=== PATIENT | female | born 1935 | race Caucasian/White ===

== ENCOUNTER 2016-11-24 09:40 | Inpatient (IN) | payer MEDICARE, BC ==
--- NOTE | 2016-11-24 10:38 | ED ---
Fall HPI - General Chief Complaint: Fall Stated Complaint: Fall Time Seen by Provider: 11/24/16 09:51 Source: patient Mode of arrival: EMS - History of Present Illness Initial Comments: 81-year-old female patient presents to emergency department today for complaints of left shoulder pain. She did express a fall last evening from standing height. Patient does take Coumadin. Patient did hit her head but denies any loss of consciousness. Patient does have a large hematoma to her posterior scalp. Patient is somewhat drowsy during exam but is oriented 3. S Patient is complaining of some lower abdominal pain and has had diarrhea for the last few days. He denies any back pain, chest pain, shortness of breath, dizziness, or weakness. She denies any urinary frequency, urgency, dysuria, hematuria, retention. Does have a history of dementia. - Related Data Home Medications Medication Instructions Recorded Confirmed Lactulose 10 gm PO DAILY PRN 03/25/16 11/24/16 Levothyroxine Sodium [Synthroid] 150 mcg PO DAILY 03/25/16 11/24/16 Polyethylene Glycol 3350 [Miralax] 17 gm PO DAILY PRN 03/25/16 11/24/16 Albuterol Sulfate [Proair Hfa] 2 puff INHALATION RT-Q6H PRN 07/11/16 11/24/16 Lisinopril [Zestril] 5 mg PO DAILY@0800 07/11/16 11/24/16 Loperamide [Imodium] 2 mg PO Q6H PRN 07/11/16 11/24/16 Potassium Chloride [Klor-Con 10] 10 meq PO DAILY@0900 07/11/16 11/24/16 SILVER sulfADIAZINE CREAM 1 applic TOPICAL HS@209907/11/16 11/24/16 [Silvadene Cream] Carvedilol [Coreg] 6.25 mg PO BID@0800,209911/24/16 11/24/16 Ferrous Sulfate [Feosol] 325 mg PO BID@0800,209911/24/16 11/24/16 Furosemide [Lasix] 20 mg PO DAILY@1200 11/24/16 11/24/16 Simvastatin [Zocor] 40 mg PO HS@209911/24/16 11/24/16 Warfarin [Coumadin] 2 mg PO HS@209911/24/16 11/24/16 Previous Rx's Medication Instructions Recorded traMADol HCL [Ultram] 50 mg PO BID PRN #60 tablet 03/28/16 Allergies Allergy/AdvReac Type Severity Reaction Status Date / Time ciprofloxacin [From Cipro] Allergy Unknown Verified 11/24/16 10:35 lisinopril Allergy Unknown Verified 11/24/16 10:35 Sulfa (Sulfonamide Allergy Unknown Verified 11/24/16 10:35 Antibiotics) Review of Systems ROS Statement: Those systems with pertinent positive or pertinent negative responses have been documented in the HPI. ROS Other: All systems not noted in ROS Statement are negative. Past Medical History Past Medical History: Atrial Fibrillation, Coronary Artery Disease (CAD), Cancer , Chest Pain / Angina, Dementia, Deep Vein Thrombosis (DVT), Memory Impairment, Pulmonary Embolus (PE), Thyroid Disorder Additional Past Medical History / Comment(s): ? TIA , SEES DR MO AND HAD ECHO RECENTLY, MEMORY GETTING WORSE PER DAUGHTER HAS DEMENTIAL. STATES HAS FALLEN 4 TIMES IN LAST MONTH.THEY HIRED COMFORT KEEPERS TO VISIT PATIENT. CELLULITIS LOWER LEGS, [facility] DOING SILVADENE DRESSING CHANGES History of Any Multi-Drug Resistant Organisms: ESBL Date of last positivie culture/infection: 03/24/16 E.coli ESBL MDRO Source:: Urine Past Surgical History: AICD, Bladder Surgery, Breast Surgery, Coronary Bypass/ CABG, Heart Catheterization, Pacemaker Additional Past Surgical History / Comment(s): LEFT BREAST MASTECTOMY AT [facility]- NO CHEMO OR RADIATION, CABG AT [facility] Type of Cardiac Device: Permanent Pacemaker, AICD Device Placement Date:: APPROX 5-6 YRS AGO Past Psychological History: Unable to Obtain Smoking Status: Never smoker Past Alcohol Use History: Occasional Additional Past Alcohol Use History / Comment(s): PER DAUGHTER HAS WINE AVAILABLE BUT IS NOT AN ALCOHOLIC Past Drug Use History: None Reported Additional Drug Use History / Comment(s): MEDS GIVEN TO PATIENT BY [facility] STAFF General Exam Limitations: no limitations General appearance: in no apparent distress, other (Drowsy) Head exam: Present: normocephalic, other (Large hematoma to the posterior scalp , purple in color). Absent: normal inspection Eye exam: Present: normal appearance, EOMI Pupils: Present: other (Pinpoint pupils, no reaction to light.) ENT exam: Present: normal exam, normal oropharynx, mucous membranes moist, TM's normal bilaterally. Absent: mucous membranes dry Neck exam: Present: normal inspection, full ROM. Absent: tenderness, lymphadenopathy Respiratory exam: Present: normal lung sounds bilaterally. Absent: respiratory distress, wheezes, rales, rhonchi, chest wall tenderness Cardiovascular Exam: Present: regular rate, normal rhythm, diastolic murmur. Absent: irregular rhythm GI/Abdominal exam: Present: soft, tenderness (Mild), normal bowel sounds. Absent: guarding, rebound, rigid, organomegaly, mass, hernia Extremities exam: Present: normal inspection, tenderness (To the left shoulder) , normal capillary refill. Absent: full ROM (Limited Range of motion to the left shoulder due to increased pain with movement), joint swelling Back exam: Present: normal inspection. Absent: tenderness, CVA tenderness (R), CVA tenderness (L), muscle spasm, paraspinal tenderness, vertebral tenderness Neurological exam: Present: oriented X3, CN II-XII intact, other (Drowsy) Psychiatric exam: Present: normal affect, normal mood Skin exam: Present: warm, dry, intact Course Vital Signs 11/24/16 11/24/16 09:46 14:41 Temperature 97.6 F 96.9 F L Pulse Rate 71 81 Respiratory 18 16 Rate Blood Pressure 129/78 148/77 O2 Sat by Pulse 97 97 Oximetry Medical Decision Making - Medical Decision Making Case discussed with Dr. Kirby. Patient will be admitted at this time for IV Lasix, repeat laboratory evaluation. - Lab Data Result diagrams: 11/24/16 10:37 11/24/16 10:37 Lab Results 11/24/16 11/24/16 11/24/16 Range/Units 10:37 10:37 10:37 WBC 4.5 (3.8-10.6) k/uL RBC 4.16 (3.80-5.40) m/uL Hgb 12.6 (11.4-16.0) gm/dL Hct 42.1 (34.0-46.0) % MCV 101.3 H (80.0-100.0) fL MCH 30.4 (25.0-35.0) pg MCHC 30.0 L (31.0-37.0) g/dL RDW 14.1 (11.5-15.5) % Plt Count 102 L (150-450) k/uL Neutrophils % 65 % Lymphocytes % 15 % Monocytes % 11 % Eosinophils % 5 % Basophils % 1 % Neutrophils # 3.0 (1.3-7.7) k/uL Lymphocytes # 0.7 L (1.0-4.8) k/uL Monocytes # 0.5 (0-1.0) k/uL Eosinophils # 0.2 (0-0.7) k/uL Basophils # 0.0 (0-0.2) k/uL Hypochromasia Moderate Macrocytosis Slight PT 34.3 H (9.0-12.0) sec INR 3.5 (<1.1) APTT 30.8 H (22.0-30.0) sec Sodium 147 H (137-145) mmol/L Potassium 3.4 L (3.5-5.1) mmol/L Chloride 104 (98-107) mmol/L Carbon Dioxide 29 (22-30) mmol/L Anion Gap 14 mmol/L BUN 41 H (7-17) mg/dL Creatinine 1.66 H (0.52-1.04) mg/dL Est GFR (MDRD) Af Amer 36 (>60 ml/min/1.73 sqM) Est GFR (MDRD) Non-Af 30 (>60 ml/min/1.73 sqM) Glucose 112 H (74-99) mg/dL Calcium 9.8 (8.4-10.2) mg/dL Total Bilirubin 2.7 H (0.2-1.3) mg/dL AST 40 H (14-36) U/L ALT 25 (9-52) U/L Alkaline Phosphatase 88 (38-126) U/L Creatine Kinase (30-135) U/L NT-Pro-B Natriuret Pep pg/mL Total Protein 6.8 (6.3-8.2) g/dL Albumin 3.8 (3.5-5.0) g/dL Amylase 46 (30-110) U/L Lipase 166 (23-300) U/L Urine Color Urine Appearance (Clear) Urine pH (5.0-8.0) Ur Specific [place] (1.001-1.035) Urine Protein (Negative) Urine Glucose (UA) (Negative) Urine Ketones (Negative) Urine Blood (Negative) Urine Nitrate (Negative) Urine Bilirubin (Negative) Urine Urobilinogen (<2.0) mg/dL Ur Leukocyte Esterase (Negative) Urine WBC (0-5) /hpf Urine Bacteria (None) /hpf Urine Mucus (None) /hpf 11/24/16 11/24/16 11/24/16 Range/Units 10:37 10:37 12:15 WBC (3.8-10.6) k/uL RBC (3.80-5.40) m/uL Hgb (11.4-16.0) gm/dL Hct (34.0-46.0) % MCV (80.0-100.0) fL MCH (25.0-35.0) pg MCHC (31.0-37.0) g/dL RDW (11.5-15.5) % Plt Count (150-450) k/uL Neutrophils % % Lymphocytes % % Monocytes % % Eosinophils % % Basophils % % Neutrophils # (1.3-7.7) k/uL Lymphocytes # (1.0-4.8) k/uL Monocytes # (0-1.0) k/uL Eosinophils # (0-0.7) k/uL Basophils # (0-0.2) k/uL Hypochromasia Macrocytosis PT (9.0-12.0) sec INR (<1.1) APTT (22.0-30.0) sec Sodium (137-145) mmol/L Potassium (3.5-5.1) mmol/L Chloride (98-107) mmol/L Carbon Dioxide (22-30) mmol/L Anion Gap mmol/L BUN (7-17) mg/dL Creatinine (0.52-1.04) mg/dL Est GFR (MDRD) Af Amer (>60 ml/min/1.73 sqM) Est GFR (MDRD) Non-Af (>60 ml/min/1.73 sqM) Glucose (74-99) mg/dL Calcium (8.4-10.2) mg/dL Total Bilirubin (0.2-1.3) mg/dL AST (14-36) U/L ALT (9-52) U/L Alkaline Phosphatase (38-126) U/L Creatine Kinase 163 H (30-135) U/L NT-Pro-B Natriuret Pep 51011 pg/mL Total Protein (6.3-8.2) g/dL Albumin (3.5-5.0) g/dL Amylase (30-110) U/L Lipase (23-300) U/L Urine Color Yellow Urine Appearance Cloudy H (Clear) Urine pH 5.5 (5.0-8.0) Ur Specific [place] 1.010 (1.001-1.035) Urine Protein 1+ H (Negative) Urine Glucose (UA) Negative (Negative) Urine Ketones Negative (Negative) Urine Blood Negative (Negative) Urine Nitrate Negative (Negative) Urine Bilirubin Negative (Negative) Urine Urobilinogen 4.0 (<2.0) mg/dL Ur Leukocyte Esterase Small H (Negative) Urine WBC 4 (0-5) /hpf Urine Bacteria Moderate H (None) /hpf Urine Mucus Rare H (None) /hpf - Radiology Data Radiology results: report reviewed CT of the brain and C-spine shows moderate-sized left posterior scalp contusion. No underlying skull fracture or acute intracranial abnormalities seen. Stable mild atrophy and changes of chronic small vessel ischemic disease. No acute fracture of cervical spine. Degenerative grade 1 anterolisthesis at C5 to C6 and C7 to T1 with moderate multilevel spondylitic changes and a levoconvex scoliosis. Also shows moderate right pleural effusion of unknown etiology, clinically correlate. As dictated by Dr. Guallpa. X-ray of the left shoulder reveals no acute osseous lesion. Hypertrophic change , left before meals joint. As dictated by Dr. Chapman. X-ray of the lumbar spine reveals no acute osseous lesion. But does show borderline grade 2 spondylolisthesis of L4 on L5. Degenerative change also noted. As dictated by Dr. Chapman. AP view x-ray of the pelvis reveals no acute osseous lesion. But does show degenerative change. As dictated by Dr. Chapman. Disposition Clinical Impression: Fall, Scalp hematoma, CHF (congestive heart failure), Pleural effusion Disposition: ADMITTED IP TO THIS HOSP Condition: Fair
[2016-11-24 10:52] LABS: Basophils % (A) 1 %; CH 30.8; CHCM 30.6; Eosinophils # (A) 0.2 k/uL (0-0.7); Eosinophils % (A) 5 %; HCT 42.1 % (34.0-46.0); HDW 2.62; HGB 12.6 gm/dL (11.4-16.0); Hypochromasia Moderate; Luc % (Auto) 4; Lymphocytes # (A) 0.7 k/uL (1.0-4.8); Lymphocytes % (A) 15 %; MCH 30.4 pg (25.0-35.0); MCV 101.3 fL (80.0-100.0); Macrocytosis Slight; Mean Platelet Volume 8.4; Monocytes # (A) 0.5 k/uL (0-1.0); Monocytes % (A) 11 %; Neutrophils % (A) 65 %; RBC 4.16 m/uL (3.80-5.40); RDW 14.1 % (11.5-15.5); WBC 4.5 k/uL (3.8-10.6); WBC (Perox) 4.61
[2016-11-24 10:58] LABS: Calcium 9.8 mg/dL (8.4-10.2); Potassium 3.4 mmol/L (3.5-5.1); Total Bilirubin 2.7 mg/dL (0.2-1.3); Total Protein 6.8 g/dL (6.3-8.2)
[2016-11-24 11:04] LABS: INR 3.5 (<1.1); Partial Thromboplastin Time 30.8 sec (22.0-30.0); Prothrombin Time 34.3 sec (9.0-12.0)
--- NOTE | 2016-11-24 11:35 | CT ---
EXAMINATION TYPE: CT brain [place] con DATE OF EXAM: 11/24/2016 11:18 AM COMPARISON: NONE HISTORY: 81-year-old female with fall, hit back of head CT DLP: 1696 mGycm Automated exposure control for dose reduction was used. Technique: Examination of the head was done in axial plane without intravenous contrast. Coronal and sagittal reconstructions performed. CT of the cervical spine was obtained in axial plane without intravenous injection of contrast mater ial. Coronal and sagittal reformatted images were obtained from the axial views for evaluation of f ractures, spinal alignment and canal. FINDINGS: Head: There is no evidence of acute intracranial hemorrhage, acute ischemic changes, mass, mass-effect, or extra-axial fluid collection. There is no effacement of cerebral sulci or basal subarachnoid cister ns. There is no hydrocephalus. There is no midline shift. Carrillo-white matter distinction is preserv ed. Mild generalized supratentorial volume loss. Mild patchy periventricular and deep white matter hypod ensity suggesting chronic small vessel ischemic disease. There is a moderate sized posterior scalp contusion without underlying calvarial fracture. Normal variant of hyperostosis frontalis interna. Paranasal sinuses and mastoid air cells well pneuma tized. Orbits and globes are intact. Cervical spine: There is a levoconvex curvature of the cervical spine. Advanced disc/endplate degenerative change C4- C5 and C6-C7. There is degenerative grade 1 anterolisthesis at C5-C6 and C7-T1. Bulging disks and ligamentum flavum thickening and disc osteophyte complex formation throughout. No acute fracture of the cervical spine. Changes result in moderate right neuroforaminal stenosis at C4-C5 and mild on the left at C6-C7. Colón ges result in very minimal mild narrowing of the spinal canal. Retropharyngeal course of the carotid artery. There is a moderate right pleural effusion of unknown etiology and should be correlated clinically. Sagittal and coronal reformatted images confirm above findings. COMBINED IMPRESSION: 1. Moderate size left posterior scalp contusion. No underlying skull fracture or acute intracranial a bnormality seen. Stable mild atrophy and changes of chronic small vessel ischemic disease. 2. No acute fracture of the cervical spine. Degenerative grade 1 anterolisthesis at C5-C6 and C7-T1 w ith moderate multilevel spondylotic change and a levoconvex scoliosis. 3. Moderate right pleural effusion of unknown etiology. Clinically correlate.
--- NOTE | 2016-11-24 11:42 | XR ---
EXAMINATION TYPE: XR shoulder limited LT DATE OF EXAM ORDERED: 11/24/2016 11:24 AM HISTORY: Pain. COMPARISON: None. FINDINGS: There has been a previous midline sternotomy. There is a multilead pacing device in place on the left. There hypertrophic changes present in the left AC joint. No fracture, dislocation or other acute osse ous lesion is seen. IMPRESSION: 1. NO ACUTE OSSEOUS LESION. 2. HYPERTROPHIC CHANGE, LEFT AC JOINT.
[2016-11-24] MEDS ORDERED: METOCLOPRAMIDE 5 MG/ML 2 ML VIAL IM STA (12:03)
[2016-11-24 12:32] LABS: Appearance,Urine Cloudy (Clear); Bacteria,Urine Moderate /hpf; Bilirubin,Urine Negative (Negative); Glucose,Urine (UA) Negative (Negative); Ketones,Urine Negative (Negative); Leukocyte Esterase,Urine Small (Negative); Mucus,Urine Rare /hpf; Nitrite,Urine Negative (Negative); PH, Urine 5.5 (5.0-8.0); Particle Count 93660; Protein,Urine 1+ (Negative); UA Billing (MACRO vs. MICRO) MICRO; WBC,Urine 4 /hpf (0-5)
[2016-11-24] MEDS ORDERED: SODIUM CHLORIDE 0.9% 1,000 ML IV ONE (13:06)
--- NOTE | 2016-11-24 13:55 | XR ---
EXAMINATION TYPE: XR pelvis AP view DATE OF EXAM ORDERED: 11/24/2016 1:27 PM HISTORY: Pain. COMPARISON: Previous study dated 03/25/2016. FINDINGS: There are degenerative changes in the lower lumbar spine. There has been a previous gisselle ctomy at L5. There are mild degenerative changes in the SI joints. No fracture or dislocation is seen . Multiple phleboliths are present in the pelvis. Both hip joints appear normal. There is vascular ca lcification. IMPRESSION: 1. NO ACUTE OSSEOUS LESION. 2. DEGENERATIVE CHANGE.
--- NOTE | 2016-11-24 13:57 | XR ---
EXAMINATION TYPE: XR lumbar spine 2 or 3V DATE OF EXAM ORDERED: 11/24/2016 1:28 PM HISTORY: Pain. COMPARISON: None. FINDINGS: There has been a previous cholecystectomy. There has been a previous laminectomy at L5. There is a mild levoscoliosis. There is a degenerative grade 1 bordering on grade 2 spondylolisthesis of L4 on L5. There is no spondylolysis. There is diffuse degenerative disc disease most marked at L3 -4, L4-5 and L5-S1. No fractures are seen. The pedicles are not well assessed due to the rotoscoliosi s. IMPRESSION: 1. NO ACUTE OSSEOUS LESION. 2. BORDERLINE GRADE 2 SPONDYLOLISTHESIS OF L4 ON L5. 3. DEGENERATIVE CHANGE.
--- NOTE | 2016-11-24 14:21 | XR ---
EXAMINATION TYPE: XR chest 1V portable DATE OF EXAM: 11/24/2016 2:13 PM Comparison: 03/28/2016 Clinical History: 81-year-old female with pain, possible fluid in lungs. Findings: Left anterior chest wall AICD generator with right ventricular and coronary sinus leads. Median sternotomy wires are present with post-CABG clips. Heart is borderline enlarged. Diffuse interstitial and vascular prominence. There is some patchy medi al right basilar opacity. No significant pleural effusion seen on the frontal view. Asymmetric elevat ion of the right hemidiaphragm slightly more pronounced as compared to prior. Impression: 1. Cardiomegaly and interstitial changes. Correlate for fluid overload with pulmonary vascular conges tion. 2. Patchy medial right basilar atelectasis or developing infiltrate versus developing area of pulmona ry edema.
[2016-11-24] MEDS ORDERED: FUROSEMIDE 10 MG/ML 4 ML VIAL IV STA (14:56)
[2016-11-24] MEDS ORDERED: traMADol 50 MG TAB PO PRN (15:01)
[2016-11-24] MEDS ORDERED: ALBUTEROL NEBULIZED 2.5 MG/3 ML INHALATION PRN (15:01)
[2016-11-24] MEDS ORDERED: LOPERAMIDE 2 MG CAP PO PRN (15:01)
[2016-11-24 15:06] VITALS: RESP 18
[2016-11-24] MEDS ORDERED: Potassium Replacement Protocol 1 EACH MISC MISCELLANE PRN (18:47)
[2016-11-24] MEDS: CARVEDILOL 6.25 MG TAB PO SCH (21:57)
[2016-11-24] MEDS: FERROUS SULFATE 325 MG TAB PO SCH (21:57)
[2016-11-24] MEDS: POTASSIUM CHLORIDE ER 20 MEQ TAB.ER PO SCH ×2 (21:58→23:37)
[2016-11-24] MEDS: ATORVASTATIN 20 MG TAB PO SCH (22:08)
[2016-11-25] MEDS: LEVOTHYROXINE 75 MCG TAB PO SCH (06:38)
[2016-11-25 07:01] LABS: Calcium 9.5 mg/dL (8.4-10.2); Potassium 3.6 mmol/L (3.5-5.1)
[2016-11-25] MEDS ORDERED: LISINOPRIL 5 MG TAB PO SCH (08:00)
[2016-11-25] MEDS: FERROUS SULFATE 325 MG TAB PO SCH ×2 (08:16→21:06)
[2016-11-25] MEDS: CARVEDILOL 6.25 MG TAB PO SCH ×2 (08:16→21:05)
[2016-11-25] MEDS ORDERED: POTASSIUM CHLORIDE ER 10 MEQ TAB.ER.PRT PO SCH (09:00)
--- NOTE | 2016-11-25 09:58 | P.HPIM ---
History of Present Illness H&P Date: 11/25/16 Chief Complaint: Fall with injury Patient is an 81-year-old female who states that she fell at home from a standing position she had head trauma and left shoulder trauma she takes Coumadin for atrial fibrillation, she was brought in to [facility] emergency room, at the point of evaluation she was drowsy, computed tomography scan of the head and neck did not reveal any evidence of acute bleeding, x-ray of the pelvis and the left shoulder did not reveal any evidence of acute fracture, further evaluation revealed evidence of chest congestion was pulmonary edema, BNP was elevated at 18,000, and there was minimal elevation in troponin levels, patient was admitted to telemetry floor for further evaluation and treatment, she was given IV Lasix in the emergency room, cardiology consultation was requested. Past Medical History Past Medical History: Atrial Fibrillation, Coronary Artery Disease (CAD), Cancer , Chest Pain / Angina, Dementia, Deep Vein Thrombosis (DVT), Hyperlipidemia, Memory Impairment, Pulmonary Embolus (PE), Syncope, Thyroid Disorder Additional Past Medical History / Comment(s): ? TIA , SEVERAL UTI'S (ECOLI) MEMORY GETTING WORSE PER DAUGHTER HAS DEMENTIA. FALLS,,CELLULITIS LOWER LEGS, [facility] DOING SILVADENE DRESSING CHANGES, LT BREAST CANCER. DDD History of Any Multi-Drug Resistant Organisms: ESBL Date of last positivie culture/infection: 03/24/16 E.coli ESBL MDRO Source:: Urine Past Surgical History: AICD, Bladder Surgery, Breast Surgery, Coronary Bypass/ CABG, Heart Catheterization, Pacemaker Additional Past Surgical History / Comment(s): LEFT BREAST MASTECTOMY AT [facility]- NO CHEMO OR RADIATION, CABG AT [facility], PREVIOUSLY CHARTED PACEMAKER /[facility] Past Anesthesia/Blood Transfusion Reactions: Unable to Obtain Type of Cardiac Device: Permanent Pacemaker, AICD Device Placement Date:: APPROX 5-6 YRS AGO Past Psychological History: Unable to Obtain Smoking Status: Never smoker Past Alcohol Use History: Occasional Additional Past Alcohol Use History / Comment(s): PER DAUGHTER HAS WINE OCC BUT IS NOT AN ALCOHOLIC Past Drug Use History: None Reported Additional Drug Use History / Comment(s): MEDS GIVEN TO PATIENT BY [facility] - Past Family History Father Family Medical History: Unable to Obtain Mother Family Medical History: Unable to Obtain Medications and Allergies Home Medications Medication Instructions Recorded Confirmed Type Lactulose 10 gm PO DAILY PRN 07/09/16 03/10/17 History Levothyroxine Sodium [Synthroid] 150 mcg PO DAILY 03/25/16 11/24/16 History Polyethylene Glycol 3350 [Miralax] 17 gm PO DAILY PRN 03/25/16 11/24/16 History Albuterol Sulfate [Proair Hfa] 2 puff INHALATION RT-Q6H PRN 07/11/16 11/24/16 History Lisinopril [Zestril] 5 mg PO DAILY@0800 07/11/16 11/24/16 History Loperamide [Imodium] 2 mg PO Q6H PRN 07/11/16 11/24/16 History Potassium Chloride [Klor-Con 10] 10 meq PO DAILY@0900 07/11/16 11/24/16 History SILVER sulfADIAZINE CREAM 1 applic TOPICAL HS@209907/11/16 11/24/16 History [Silvadene Cream] Carvedilol [Coreg] 6.25 mg PO BID@0800,209911/24/16 11/24/16 History Ferrous Sulfate [Feosol] 325 mg PO BID@0800,2100 11/24/16 11/24/16 History Furosemide [Lasix] 20 mg PO DAILY@1200 11/24/16 11/24/16 History Simvastatin [Zocor] 40 mg PO HS@209911/24/16 11/24/16 History Warfarin [Coumadin] 2 mg PO HS@2100 11/24/16 11/24/16 History Allergies Allergy/AdvReac Type Severity Reaction Status Date / Time ciprofloxacin [From Cipro] Allergy Unknown Verified 11/24/16 10:35 lisinopril Allergy Unknown Verified 11/24/16 10:35 Sulfa (Sulfonamide Allergy Unknown Verified 11/24/16 10:35 Antibiotics) Physical Exam Vitals: Vital Signs Temp Pulse Pulse Resp BP BP Pulse Ox 11/25/16 08:23 98.5 F 72 18 125/61 99 11/25/16 04:00 71 18 133/61 90 L 11/25/16 00:00 97.3 F L 67 18 116/55 94 L 11/24/16 20:00 97.5 F L 78 18 126/59 98 11/24/16 17:10 96.7 F L 69 18 133/60 11/24/16 16:33 72 18 158/69 98 Intake and Output 11/24/16 11/25/16 11/25/16 22:59 06:59 14:59 Intake Total 236 Output Total 100 Balance -100 236 Intake: Oral 236 Output: Urine 100 Other: Voiding Method Bedpan Toilet Toilet Diaper # Voids 1 1 Weight 61.235 kg 60.5 kg In general patient is alert and oriented 3, however mental status is better than described in the emergency room. HEENT head normocephalic, there is a hematoma in the posterior scalp area Neck is supple no JVD no goiter no lymphadenopathy Cardiac exam reveals irregular heart sounds S1 and S2 with stools over 6 systolic murmur in the left sternal border Chest exam reveals fine crackles in both lung argueta no wheezing Abdomen is soft nontender no organomegaly with normal bowel sounds Extremity exam reveals 2+ edema patient has Tera wrapping that was placed on bilateral lower extremity 4 edema at her primary care physician on the day prior to admission. Neurological examination reveals no gross focal deficit at this time Results CBC & Chem 7: 11/24/16 10:37 11/25/16 06:24 Labs: Abnormal Lab Results - Last 24 Hours (Table) 11/24/16 11/24/16 11/25/16 Range/Units 15:57 22:10 06:24 BUN 38 H (7-17) mg/dL Creatinine 1.30 H (0.52-1.04) mg/dL Glucose 122 H (74-99) mg/dL Troponin I 0.039 H* 0.037 H* (0.000-0.034) ng/mL Thrombosis Risk Factor Assmnt - Choose All That Apply Each Risk Factor Represents 3 Points: Age 75 years or older Thrombosis Risk Factor Assessment Total Risk Factor Score: 3 Thrombosis Risk Factor Assessment Level: Moderate Risk Assessment and Plan Plan: #1 fall was head trauma patient is on Coumadin, no evidence of intracranial bleeding, patient has a large scalp hematoma #2 hip pain and left shoulder pain without any evidence of fracture on x-ray #3 acute on chronic congestive heart failure, will obtain echo cardiogram patient was started on IV Lasix 20 mg every 8 hours radiology consultation was requested #4 atrial fibrillation, heart rate is well-controlled continue was Coumadin patient will be given 2 mg today Will recheck INR in a.m. #5 physical debility Will consult physical therapy Will follow in a.m.
[2016-11-25] MEDS: FUROSEMIDE 10 MG/ML 2 ML VIAL IV SCH ×3 (10:26→22:56)
[2016-11-25 10:29] VITALS: BMI 24.3
--- NOTE | 2016-11-25 13:14 | P.CRDCN ---
History of Present Illness Consult date: 11/25/16 Reason for Consult (text): CHF Chief complaint: left shoulder pain History of present illness: This is a pleasantly confused 81-year-old female patient who follows with Dr. Nice in the office. She has a known history of atrial fibrillation, anticoagulated on Coumadin, runny artery disease, dementia, PE, cardiomyopathy status post biventricular ICD placement, most recent available echo from March 2016 shows an ejection fraction of 25-30%. She presented to the emergency department after falling the night before last came in with complaints of shoulder pain. She did undergo computed tomography scan of the head that did not show any evidence for acute bleed. She underwent chest x-ray that did show evidence for cardiomegaly and interstitial changes and her BNP was found to be elevated to 18,100. EKG on admission showed biventricular paced rhythm with underlying atrial fibrillation. She did receive Lasix 40 mg IV push in ER and has been started on Lasix 20 mg IV push every 8 hours. Upon examination, she is feeling well. Breathing easier. She does complain of a cough that is nonproductive. She also complains of dyspnea on exertion such as with climbing stairs. She also has lower extremity edema for which she saw her primary care physician for applied Tera wraps bilaterally. Past Medical History Past Medical History: Atrial Fibrillation, Coronary Artery Disease (CAD), Cancer , Chest Pain / Angina, Dementia, Deep Vein Thrombosis (DVT), Hyperlipidemia, Memory Impairment, Pulmonary Embolus (PE), Syncope, Thyroid Disorder Additional Past Medical History / Comment(s): ? TIA , SEVERAL UTI'S (ECOLI) MEMORY GETTING WORSE PER DAUGHTER HAS DEMENTIA. FALLS,,CELLULITIS LOWER LEGS, [facility] DOING SILVADENE DRESSING CHANGES, LT BREAST CANCER. DDD History of Any Multi-Drug Resistant Organisms: ESBL Date of last positivie culture/infection: 03/24/16 E.coli ESBL MDRO Source:: Urine Past Surgical History: AICD, Bladder Surgery, Breast Surgery, Coronary Bypass/ CABG, Heart Catheterization, Pacemaker Additional Past Surgical History / Comment(s): LEFT BREAST MASTECTOMY AT [facility]- NO CHEMO OR RADIATION, CABG AT [facility], PREVIOUSLY CHARTED PACEMAKER /AIDC Past Anesthesia/Blood Transfusion Reactions: Unable to Obtain Type of Cardiac Device: Permanent Pacemaker, AICD Device Placement Date:: APPROX 5-6 YRS AGO Past Psychological History: Unable to Obtain Smoking Status: Never smoker Past Alcohol Use History: Occasional Additional Past Alcohol Use History / Comment(s): PER DAUGHTER HAS WINE OCC BUT IS NOT AN ALCOHOLIC Past Drug Use History: None Reported Additional Drug Use History / Comment(s): MEDS GIVEN TO PATIENT BY [facility] ST[facility]FF - Past Family History Father Family Medical History: Unable to Obtain Mother Family Medical History: Unable to Obtain Medications and Allergies Home Medications Medication Instructions Recorded Confirmed Type Lactulose 10 gm PO DAILY PRN 03/25/16 11/24/16 History Levothyroxine Sodium [Synthroid] 150 mcg PO DAILY 03/25/16 11/24/16 History Polyethylene Glycol 3350 [Miralax] 17 gm PO DAILY PRN 03/25/16 11/24/16 History Albuterol Sulfate [Proair Hfa] 2 puff INHALATION RT-Q6H PRN 07/11/16 11/24/16 History Lisinopril [Zestril] 5 mg PO DAILY@0800 07/11/16 11/24/16 History Loperamide [Imodium] 2 mg PO Q6H PRN 07/11/16 11/24/16 History Potassium Chloride [Klor-Con 10] 10 meq PO DAILY@0900 07/11/16 11/24/16 History SILVER sulfADIAZINE CREAM 1 applic TOPICAL HS@209907/11/16 11/24/16 History [Silvadene Cream] Carvedilol [Coreg] 6.25 mg PO BID@0800,2100 11/24/16 11/24/16 History Ferrous Sulfate [Feosol] 325 mg PO BID@0800,209911/24/16 11/24/16 History Furosemide [Lasix] 20 mg PO DAILY@1200 11/24/16 11/24/16 History Simvastatin [Zocor] 40 mg PO HS@209911/24/16 11/24/16 History Warfarin [Coumadin] 2 mg PO HS@209911/24/16 11/24/16 History Allergies Allergy/AdvReac Type Severity Reaction Status Date / Time ciprofloxacin [From Cipro] Allergy Unknown Verified 11/24/16 10:35 lisinopril Allergy Unknown Verified 11/24/16 10:35 Sulfa (Sulfonamide Allergy Unknown Verified 11/24/16 10:35 Antibiotics) Physical Exam Vitals: Vital Signs Temp Pulse Pulse Resp BP BP Pulse Ox 11/25/16 08:23 98.5 F 72 18 125/61 99 11/25/16 04:00 71 18 133/61 90 L 11/25/16 00:00 97.3 F L 67 18 116/55 94 L 11/24/16 20:00 97.5 F L 78 18 126/59 98 11/24/16 17:10 96.7 F L 69 18 133/60 11/24/16 16:33 72 18 158/69 98 Intake and Output 11/24/16 11/25/16 11/25/16 22:59 06:59 14:59 Intake Total 236 Output Total 100 Balance -100 236 Intake: Oral 236 Output: Urine 100 Other: Voiding Method Bedpan Toilet Toilet Diaper # Voids 1 1 1 Weight 61.235 kg 60.5 kg 60.5 kg Patient Weight 11/26/16 07:59 Weight 60.5 kg PHYSICAL EXAMINATION: HEENT: Head with evidence of left posterior scalp contusion. Pupils equal, round. Neck is supple. There is no elevated jugular venous pressure. HEART EXAMINATION: Heart sounds irregular irregular, S1 and S2 with a systolic murmur. CHEST EXAMINATION: Lungs reveal diminished air entry bilateral bases. No chest wall tenderness is noted on palpation or with deep breathing. ABDOMEN: Soft, nontender. Bowel sounds are heard. No organomegaly noted. EXTREMITIES: 1+ peripheral pulses with evidence of 2+ peripheral edema and no calf tenderness noted. NEUROLOGIC patient is awake, alert and oriented x2, short-term memory loss noted. . Results 11/24/16 10:37 11/25/16 06:24 Cardiac Enzymes 11/24/16 11/24/16 Range/Units 15:57 22:10 Troponin I 0.039 H* 0.037 H* (0.000-0.034) ng/mL Comprehensive Metabolic Panel 11/25/16 Range/Units 06:24 Sodium 144 (137-145) mmol/L Potassium 3.6 (3.5-5.1) mmol/L Chloride 107 (98-107) mmol/L Carbon Dioxide 25 (22-30) mmol/L BUN 38 H (7-17) mg/dL Creatinine 1.30 H (0.52-1.04) mg/dL Glucose 122 H (74-99) mg/dL Calcium 9.5 (8.4-10.2) mg/dL Current Medications Generic Name Dose Route Start Last Admin Trade Name Freq PRN Reason Stop Dose Admin Albuterol Sulfate 2.5 mg 11/24/16 15:01 Ventolin Nebulized INHALATION RT-Q6H PRN Shortness Of Breath Atorvastatin Calcium 20 mg 11/24/16 21:00 11/24/16 22:08 Lipitor PO 20 mg HS@2100 JIMBO Administration Carvedilol 6.25 mg 11/24/16 21:00 11/25/16 08:16 Coreg PO 6.25 mg BID@0800,2100 JIMBO Administration Ferrous Sulfate 325 mg 11/24/16 21:00 11/25/16 08:16 Feosol PO 325 mg BID@0800,2100 JIMBO Administration Furosemide 20 mg 11/25/16 09:45 11/25/16 10:26 Lasix IV 20 mg Q8HR JIMBO Administration Ceftriaxone Sodium 1,000 mg/ 50 mls @ 100 mls/hr 11/25/16 09:45 11/25/16 10: 26 Sodium Chloride IVPB 100 mls/hr Q24HR JIMBO Administration Levothyroxine Sodium 150 mcg 11/25/16 06:30 11/25/16 06:38 Synthroid PO 150 mcg 0630 JIMBO Administration Loperamide HCl 2 mg 11/24/16 15:01 Imodium PO Q6H PRN Diarrhea Miscellaneous Information 1 each 11/24/16 18:47 Potassium Per Protocol MISCELLANE DAILY PRN Per Protocol Protocol Potassium Chloride 10 meq 11/25/16 09:00 11/25/16 08:16 K-Dur 10 PO 10 meq DAILY@0900 JIMBO Administration Silver Sulfadiazine 1 applic 11/24/16 21:00 11/24/16 21:57 Silvadene Cream TOPICAL 1 applic HS@2100 JIMBO Administration Tramadol HCl 50 mg 11/24/16 15:01 Ultram PO BID PRN Pain Warfarin Sodium 2 mg 11/25/16 18:00 Coumadin PO 11/25/16 18:01 ONCE@1800 ONE Intake and Output 11/24/16 11/25/16 11/25/16 22:59 06:59 14:59 Intake Total 236 Output Total 100 Balance -100 236 Intake: Oral 236 Output: Urine 100 Other: Voiding Method Bedpan Toilet Toilet Diaper # Voids 1 1 1 Weight 61.235 kg 60.5 kg 60.5 kg Patient Weight 11/26/16 07:59 Weight 60.5 kg 11/25/16 06:24 Assessment and Plan Plan: Assessment and plan #1 left shoulder pain status post fall #2 scalp contusion with no evidence of intracranial bleeding #3 acute on chronic congestive heart failure, last known ejection fraction 25-30 % #4 chronic atrial fibrillation, anticoagulated on Coumadin #5 dementia From cardiology's perspective, we will review 2-D echo. Continue Lasix 20 mg IV push every 8 hours. We will follow the patient's renal function, daily weights and intake and output. Further recommendations to follow. GARMENT SEWER HAND note has been reviewed, I agree with a documented findings and plan of care. Patient was seen and examined.
[2016-11-25] MEDS: SPIRONOLACTONE 25 MG TAB PO SCH (15:37)
[2016-11-25] MEDS: LISINOPRIL 10 MG TAB PO SCH (15:37)
[2016-11-25] MEDS ORDERED: WARFARIN 2 MG TAB PO ONE (18:00)
[2016-11-25] MEDS: ATORVASTATIN 20 MG TAB PO SCH (21:05)
[2016-11-26] MEDS: LEVOTHYROXINE 75 MCG TAB PO SCH (06:23)
[2016-11-26 06:27] LABS: Basophils % (A) 1 %; CH 30.9; CHCM 30.7; Eosinophils # (A) 0.3 k/uL (0-0.7); Eosinophils % (A) 6 %; HCT 39.9 % (34.0-46.0); HDW 2.55; Hypochromasia Slight; Luc # (Auto) 0.17; Luc % (Auto) 4; Lymphocytes # (A) 0.8 k/uL (1.0-4.8); Lymphocytes % (A) 17 %; MCH 30.6 pg (25.0-35.0); MCHC 30.2 g/dL (31.0-37.0); MCV 101.3 fL (80.0-100.0); Macrocytosis Slight; Mean Platelet Volume 8.4; Monocytes # (A) 0.4 k/uL (0-1.0); Monocytes % (A) 9 %; Neutrophils # (A) 2.9 k/uL (1.3-7.7); Neutrophils % (A) 64 %; RBC 3.94 m/uL (3.80-5.40); RDW 14.1 % (11.5-15.5); WBC 4.5 k/uL (3.8-10.6); WBC (Perox) 4.59
[2016-11-26 06:41] LABS: INR 2.8 (<1.1); Prothrombin Time 27.2 sec (9.0-12.0)
[2016-11-26 06:56] LABS: Calcium 9.3 mg/dL (8.4-10.2); Potassium 3.6 mmol/L (3.5-5.1); Total Bilirubin 1.7 mg/dL (0.2-1.3); Total Protein 6.2 g/dL (6.3-8.2)
[2016-11-26] MEDS: LISINOPRIL 10 MG TAB PO SCH (08:33)
[2016-11-26] MEDS: SPIRONOLACTONE 25 MG TAB PO SCH (08:33)
[2016-11-26] MEDS: FERROUS SULFATE 325 MG TAB PO SCH (08:33)
[2016-11-26] MEDS: CARVEDILOL 6.25 MG TAB PO SCH (08:33)
[2016-11-26 08:36] VITALS: TEMP 97
--- NOTE | 2016-11-26 10:10 | P.PN ---
Subjective 81-year-old female being seen this morning patient is dressed ambulating insisting on going home has pulled out her IV nursing stated there has been 3 episodes where she is pulled out the IV there is no IV access patient will not allow nursing to reinsert IV for access. Patient is stating him going home. There is concern about patient safety patient presented to the emergency room after she had fallen the night before with shoulder pain. Patient had CAT scan on admission of the brain did not show any evidence of acute bleed. Chest x- ray will showed interstitial changes BNP was found to be elevated. Patient does have a known history of chronic atrial fibrillation is on anticoagulation Coumadin the INR this morning is 2.8. Cardiology has seen the patient for the mildly elevated troponin and the elevated BNP. Patient was initiated on Lasix 20 IV push every 8 hours and a 2-D echocardiogram was ordered. Objective - Vital Signs Vital signs: Vital Signs Temp 97 F L 11/26/16 08:35 Pulse 65 11/26/16 08:35 Resp 18 11/26/16 08:35 BP 120/56 11/26/16 08:35 Pulse Ox 96 11/26/16 08:35 Intake & Output 11/25/16 11/26/16 11/26/16 17:59 06:59 18:59 Intake Total 240 Output Total Balance 240 Weight Intake: IV cefTRIAXone 1,000 mg In Sodium Chloride 0.9% 50 ml @ 100 mls/hr IVPB Q24HR [facility] Rx#:[id number] Oral 240 Output: Urine Other: Voiding Method Toilet # Voids # Bowel Movements - Exam Physical exam 81-year-old female oriented to self only easily agitated up pacing the room insisting on going home Lungs on room air essentially clear Heart S1-S2 audible irregular monitor V paced with atrial fibrillation Abdomen soft nontender reports no nausea vomiting Extremities no edema to the upper or lower extremities HEENT posterior purple bruising to the neck area with a scalp contusion noted - Labs CBC & Chem 7: 11/26/16 05:55 11/26/16 05:55 Labs: Abnormal Lab Results - Last 24 Hours (Table) 11/26/16 11/26/16 11/26/16 Range/Units 05:55 05:55 05:55 MCV 101.3 H (80.0-100.0) fL MCHC 30.2 L (31.0-37.0) g/dL Plt Count 102 L (150-450) k/uL Lymphocytes # 0.8 L (1.0-4.8) k/uL PT 27.2 H (9.0-12.0) sec BUN 32 H (7-17) mg/dL Creatinine 1.40 H (0.52-1.04) mg/dL Glucose 117 H (74-99) mg/dL Total Bilirubin 1.7 H (0.2-1.3) mg/dL Total Protein 6.2 L (6.3-8.2) g/dL Albumin 3.4 L (3.5-5.0) g/dL Microbiology - Last 24 Hours (Table) 11/25/16 19:30 Urine Culture - Preliminary Urine,Clean Catch Assessment and Plan Plan: Impression Present on admission fall resulting in left shoulder pain with negative x-ray no evidence of a fracture Skull contusion with no evidence of an intracranial bleed per CAT scan of the brain Chronic atrial fibrillation anticoagulation Coumadin INR on admission 3.5 Present on admission UTI urine culture pending Known chronic congestive heart failure echocardiogram March 2016 EF 25-30% Dementia with behavior disturbance Status post biventricular ICD placement Present on admission mildly elevated troponin with no evidence of acute coronary syndrome Plan manager forensic to pursue the home situation, possible set up home care if indicated and to contact the daughter let the daughter know possible discharge today Hold Coumadin Cardiology's recommendations noted Change IV medication to oral route Resume home meds as appropriate The above dictated assessment and findings were discussed with dr emma Thorne and the plan of care have been dictated as directed. Laura Waldrop nurse practitioner acting as a scribe for dr carter
[2016-11-26] MEDS: FUROSEMIDE 10 MG/ML 2 ML VIAL IV SCH (10:14)
--- NOTE | 2016-11-26 11:00 | P.DS ---
Providers Date of admission: 11/24/16 15:06 Expected date of discharge: 11/26/16 Attending physician: Renny Kirby Consults: 11/25/16 09:33 Consult Physician Routine Consulting Provider: Cathryn Nice Consult Reason/Comments: CHF Do you want consulting provider notified?: Yes Primary care physician: Kristin [facility] Course: 81-year-old female presented on the day of admission to the emergency room with the patient states she fell at home from a standing position sustained head trauma and left shoulder pain. Patient stated she tripped electricity went out in her apartment she could not see that is what caused her to fall. Patient was taken to the emergency room evaluated. The x-rays of the pelvis and left shoulder did not show any evidence of an acute fracture. CAT scan of the brain was negative[place] [address]. There was also mild elevated troponin level. Patient was given IV Lasix in the emergency room and a cardiology consultation was requested patient does have dementia reportedly lives alone at [facility] assisted-living [facility] Patient does have a history of atrial fibrillation has been anticoagulated with Coumadin and known coronary artery disease status post biventricular ICD placement. A recent echo obtained in March 2016 showed an EF of 25-30%. Patient was admitted with a cardiology consultation requested patient did have an episode of behavior disturbance pulled out her IV access was not obtainable and wrists refusing to let the IV be restarted Patient was treated for a UTI present on admission with the urine culture pending patient was started on IV antibiotics Rocephin. On admission the INR was 3. 5 repeat INR on the was 2.8. Patient was insistent upon being discharged. The disability case manager was going to notify the patient's daughter of the plan of care and set up for home care to see the patient in the outpatient setting Impression discharge Present on admission fall resulting in left shoulder pain with negative x-ray no evidence of a fracture Skull contusion with no evidence of an intracranial bleed per CAT scan of the brain Chronic atrial fibrillation anticoagulation Coumadin INR on admission 3.5 Present on admission UTI urine culture pending Known chronic systolic congestive heart failure echocardiogram March 2016 EF 25- 30% Dementia with behavior disturbance Status post biventricular ICD placement Present on admission mildly elevated troponin with no evidence of acute coronary syndrome Present on admission acute on chronic renal failure stage II Present on admission elevated BNP acute on chronic systolic congestive heart failure fall from a standing position CAT scan of the C-spine showed moderate size left posterior scalp contusion no skull fracture The above dictated assessment and findings were discussed with dr emma Thorne and the plan of care have been dictated as directed. Laura Waldrop nurse practitioner acting as a scribe for dr kirby Patient Condition at Discharge: Fair Plan - Discharge Summary New Discharge Prescriptions: Cefuroxime Axetil [Ceftin] 500 mg PO BID #10 tab Discharge Medication List Lactulose 10 gm PO DAILY PRN 03/25/16 [History] Levothyroxine Sodium [Synthroid] 150 mcg PO DAILY 03/25/16 [History] Polyethylene Glycol 3350 [Miralax] 17 gm PO DAILY PRN 03/25/16 [History] traMADol HCL [Ultram] 50 mg PO BID PRN #60 tablet 03/28/16 [Rx] Albuterol Sulfate [Proair Hfa] 2 puff INHALATION RT-Q6H PRN 07/11/16 [History] Lisinopril [Zestril] 5 mg PO DAILY@0800 07/11/16 [History] Loperamide [Imodium] 2 mg PO Q6H PRN 07/11/16 [History] Potassium Chloride [Klor-Con 10] 10 meq PO DAILY@0900 07/11/16 [History] SILVER sulfADIAZINE CREAM [Silvadene Cream] 1 applic TOPICAL HS@209907/11/16 [ History] Carvedilol [Coreg] 6.25 mg PO BID@0800,209911/24/16 [History] Ferrous Sulfate [Feosol] 325 mg PO BID@0800,209911/24/16 [History] Furosemide [Lasix] 20 mg PO DAILY@1200 11/24/16 [History] Simvastatin [Zocor] 40 mg PO HS@209911/24/16 [History] Warfarin [Coumadin] 2 mg PO HS@209911/24/16 [History] Cefuroxime Axetil [Ceftin] 500 mg PO BID #10 tab 11/26/16 [Rx] Follow up Appointment(s)/Referral(s): [facility], [NON-STAFF] - Kristin Hernandez MD [Primary Care Provider] - 1-2 days Discharge Disposition: HOME WITH HOME HEALTH SERVICES
[2016-11-26] MEDS ORDERED: POLYETHYLENE GLYCOL 3350 17 GM POWD.PACK PO PRN (12:33)
[2016-11-26] MEDS ORDERED: LACTULOSE 20 GM/30 ML CUP PO PRN (12:33)
[2016-11-26 13:00] VITALS: BP 119/61; PULSE 72
[2016-11-26] MEDS ORDERED: WARFARIN 2 MG TAB PO SCH (18:00)
--- NOTE | 2016-11-27 11:58 | ECHOF ---
Referral Reason:CHF MEASUREMENTS -------- HEIGHT: 157.5 cm WEIGHT: 60.3 kg BP: RVIDd: 4.0 cm (< 3.3) IVSd: 1.1 cm (0.6 - 1.1) LVIDd: 5.3 cm (3.9 - 5.3) LVPWd: 1.3 cm (0.6 - 1.1) IVSs: 1.3 cm LVIDs: 4.7 cm LVPWs: 1.4 cm LA Diam: 5.0 cm (2.7 - 3.8) LAESV Index (A-L): 69.69 ml/m Ao Diam: 3.0 cm (2.0 - 3.7) AV Cusp: 1.8 cm (1.5 - 2.6) LA Diam: 4.9 cm (2.7 - 3.8) MV EXCURSION: 18.395 mm (> 18.000) MV EF SLOPE: 49 mm/s (70 - 150) EPSS: 1.3 cm MV E Isaac: 0.94 m/s MV DecT: 179 ms MV A Isaac: 0.23 m/s MV E/A Ratio: 4.15 RAP: 5.00 mmHg RVSP: 46.16 mmHg FINDINGS -------- Paced rhythm. This was a technically adequate study. There is borderline concentric left ventricular hypertrophy. Overall left ventricular systolic function is severely impaired with, an EF between 20 - 25 %. LA is severely dilated >40 ml/m2 The right atrium is moderately enlarged. There is mild aortic valve sclerosis. There is mild aortic regurgitation. Mild mitral annular calcification present. Moderate mitral regurgitation is present. Moderate to severe tricuspid regurgitation present. There is mild to moderate pulmonary hypertension. The right ventricular systolic pressure, as measured by Doppler, is 46.16mmHg. Trace/mild (physiologic) pulmonic regurgitation. The aortic root size is normal. There is a trivial pericardial effusion present. CONCLUSIONS -------- 1. There is borderline concentric left ventricular hypertrophy. 2. There is mild to moderate pulmonary hypertension. 3. The right ventricular systolic pressure, as measured by Doppler, is 46.16mmHg. 4. Trace/mild (physiologic) pulmonic regurgitation. 5. The aortic root size is normal. 6. There is a trivial pericardial effusion present. 7. Overall left ventricular systolic function is severely impaired with, an EF between 20 - 25 %. 8. LA is severely dilated >40 ml/m2 9. The right atrium is moderately enlarged. 10. There is mild aortic valve sclerosis. 11. There is mild aortic regurgitation. 12. Mild mitral annular calcification present. 13. Moderate mitral regurgitation is present. 14. Moderate to severe tricuspid regurgitation present. FAMILY ASSISTANT: Ida Atwood RDCS
== END 2016-11-26 13:23 | disposition home health service (06) | DRG 604 ==
LOC: EC 09:40 → 6SEL 15:06
PROVIDERS: ADMIT Internal Medicine; ATTEND Internal Medicine
DX: S00.03XA Contusion of scalp, initial encounter (principal); I50.23 Acute on chronic systolic (congestive) heart failure; F03.91 Unspecified dementia, unspecified severity, with behavioral disturbance; I42.9 Cardiomyopathy, unspecified; I13.0 Hypertensive heart and chronic kidney disease with heart failure and stage 1 through stage 4 chronic kidney disease, or unspecified chronic kidney disease; N39.0 Urinary tract infection, site not specified; I48.2 Chronic atrial fibrillation; R74.8 Abnormal levels of other serum enzymes; N18.2 Chronic kidney disease, stage 2 (mild); I25.10 Atherosclerotic heart disease of native coronary artery without angina pectoris; M25.512 Pain in left shoulder; E78.5 Hyperlipidemia, unspecified; M25.559 Pain in unspecified hip; R19.7 Diarrhea, unspecified; R53.81 Other malaise; M51.36 Other intervertebral disc degeneration, lumbar region; R29.6 Repeated falls; E07.9 Disorder of thyroid, unspecified; Z79.01 Long term (current) use of anticoagulants; Z79.899 Other long term (current) drug therapy; Z90.12 Acquired absence of left breast and nipple; Z88.8 Allergy status to other drugs, medicaments and biological substances; Z95.810 Presence of automatic (implantable) cardiac defibrillator; Z88.2 Allergy status to sulfonamides; Z88.1 Allergy status to other antibiotic agents; Z85.3 Personal history of malignant neoplasm of breast; Z86.718 Personal history of other venous thrombosis and embolism; Z86.19 Personal history of other infectious and parasitic diseases; Z87.440 Personal history of urinary (tract) infections; Z91.81 History of falling; Z71.3 Dietary counseling and surveillance; Z95.1 Presence of aortocoronary bypass graft; Z86.711 Personal history of pulmonary embolism; Z86.73 Personal history of transient ischemic attack (TIA), and cerebral infarction without residual deficits; Z16.24 Resistance to multiple antibiotics; W01.0XXA Fall on same level from slipping, tripping and stumbling without subsequent striking against object, initial encounter; Y93.01 Activity, walking, marching and hiking; Y92.039 Unspecified place in apartment as the place of occurrence of the external cause
CPT/HCPCS: 36415; 70450; 71010; 72100; 72125; 72170; 80048; 80053; 81001; 82150; 82550; 83690; 83735; 83880; 84484; 85025; 85610; 85730; 87077; 87086; 87186; 93306; 96361; 96374; 99285

== ENCOUNTER 2017-03-26 11:00 | Inpatient (IN) | payer MEDICARE ==
[2017-03-26 11:38] LABS: Basophils % (A) 0 %; CH 30.4; Eosinophils # (A) 0.2 k/uL (0-0.7); Eosinophils % (A) 2 %; HCT 33.6 % (34.0-46.0); HDW 2.78; HGB 10.8 gm/dL (11.4-16.0); Hypochromasia Moderate; Luc % (Auto) 1; Lymphocytes # (A) 0.5 k/uL (1.0-4.8); Lymphocytes % (A) 6 %; MCH 31.7 pg (25.0-35.0); MCHC 32.1 g/dL (31.0-37.0); MCV 98.8 fL (80.0-100.0); Mean Platelet Volume 7.4; Monocytes # (A) 0.6 k/uL (0-1.0); Monocytes % (A) 8 %; Neutrophils # (A) 6.9 k/uL (1.3-7.7); Neutrophils % (A) 83 %; RDW 14.5 % (11.5-15.5); WBC 8.3 k/uL (3.8-10.6); WBC (Perox) 8.47
[2017-03-26 11:39] LABS: VBG PH 7.31 (7.31-7.41)
[2017-03-26 11:48] LABS: Calcium 9.7 mg/dL (8.4-10.2); Potassium 3.6 mmol/L (3.5-5.1); Total Bilirubin 2.5 mg/dL (0.2-1.3); Total Protein 7.6 g/dL (6.3-8.2)
[2017-03-26 11:54] LABS: INR 1.6 (<1.1); Prothrombin Time 15.4 sec (9.0-12.0)
--- NOTE | 2017-03-26 12:04 | CT ---
EXAMINATION TYPE: CT brain negro zuleta DATE OF EXAM: 03/26/2017 COMPARISON: 11/24/2016 HISTORY: 82-year-old female with pain after Fall CT DLP: 1292.8 mGycm Automated exposure control for dose reduction was used. Technique: Examination of the head was done in axial plane without intravenous contrast. Coronal and sagittal reconstructions performed. CT of the cervical spine was obtained in axial plane without intravenous injection of contrast mater ial. Coronal and sagittal reformatted images were obtained from the axial views for evaluation of f ractures, spinal alignment and canal. FINDINGS: Head: There is no evidence of acute intracranial hemorrhage, acute ischemic changes, mass, mass-effect, or extra-axial fluid collection. There is no effacement of cerebral sulci or basal subarachnoid cister ns. There is no hydrocephalus. There is no midline shift. Carrillo-white matter distinction is preserv ed. Mild to moderate generalized supratentorial volume loss and mild secondary prominence of the ventricu lar system is unchanged. Patchy white matter hypodensities are stable. Trace mucosal thickening ethmoid air cells. Mastoid air cells well pneumatized. Orbits and globes are intact. No calvarial fracture. Cervical spine: No craniocervical junction abnormality, predental space widening, or prevertebral soft tissue swellin g. Tortuous, retropharyngeal course of the right ICA. No acute fracture of the cervical spine. There is rightward tilt of the patient's head. Moderate disc/endplate degenerative change particularly at C2-C3, C4-C5, C6-C7 with endplate irregula rity and disc space loss. Disc osteophytic complex at C6/C7 continues to cause a moderate spinal canal stenosis. There is a sim ilar central disc protrusion at C3-C4 causing a mild to moderate central spinal canal stenosis. Hypertrophic facet and uncovertebral joint arthropathy, particularly on the right. Degenerative grade 1 retrolisthesis at C4-C5 and grade 1 anterolisthesis at C5-C6 and C7-T1 are uncha nged from 11/24/2016. Sagittal and coronal reformatted images confirm above findings. COMBINED IMPRESSION: 1. No acute intracranial abnormality seen. Similar [id number] generalized atrophy and mild house ges of chronic small vessel ischemic disease. 2. No acute fracture of the cervical spine. Degenerative grade 1 spondylolistheses as above and moder ate multilevel spondylosis.
[2017-03-26 12:20] LABS: Creatine Kinase MB 0.8 ng/mL (0.0-2.4); Troponin I 0.029 ng/mL (0.000-0.034)
[2017-03-26 13:08] LABS: Appearance,Urine Clear (Clear); Bacteria,Urine Many /hpf; Bilirubin,Urine Negative (Negative); Glucose,Urine (UA) Negative (Negative); Ketones,Urine Negative (Negative); Leukocyte Esterase,Urine Small (Negative); Mucus,Urine Rare /hpf; Nitrite,Urine Negative (Negative); PH, Urine 5.5 (5.0-8.0); Particle Count 5226; Protein,Urine Trace (Negative); Squamous Epithelial Cell,Urine 3 /hpf (0-4); UA Billing (MACRO vs. MICRO) MICRO; Urobilinogen,Urine <2.0 mg/dL (<2.0); WBC,Urine 11 /hpf (0-5)
--- NOTE | 2017-03-26 13:09 | XR ---
EXAMINATION TYPE: XR pelvis AP view DATE OF EXAM: 03/26/2017 CLINICAL HISTORY: Pain after fall injury TECHNIQUE: A single AP view of the pelvis is obtained. COMPARISON: Pelvic x-ray November 24, 2016. FINDINGS: Osseous structures are demineralized which is noted to lower radiographic sensitivity. The re is no acute fracture/dislocation evident in the pelvis. The hip joints appear symmetric and unrem arkable. Some narrowing superior left sacroiliac joint is felt redemonstrated. Vascular calcification bilateral groin region is seen. There is spurring and disc space narrowing in visualized lower lumba r spine. IMPRESSION: There is no acute fracture or dislocation in the pelvis. No significant change from prio r.
--- NOTE | 2017-03-26 13:12 | XR ---
EXAMINATION TYPE: XR chest 1V portable DATE OF EXAM: 03/26/2017 COMPARISON: Chest x-ray November 24, 2016. HISTORY: Chest pain after fall injury. TECHNIQUE: Single AP portable frontal upright view of the chest is obtained. FINDINGS: Sternal wires and mediastinal clips are redemonstrated. Broken superior sternal wires are r edemonstrated. There is cardiomegaly with dual lead pacemaker/AICD and atherosclerotic thoracic aorta redemonstrated. There is chronic parenchymal change without suspicious focal airspace opacity, pleur al effusion, or pneumothorax seen bilaterally. The osseous structures are demineralized. IMPRESSION: Chronic changes and cardiomegaly without acute pulmonary process.
[2017-03-26] MEDS ORDERED: ACETAMINOPHEN TAB 325 MG TAB PO PRN (15:50)
[2017-03-26] MEDS ORDERED: NALOXONE 0.4 MG/ML 1 ML VIAL IV PRN (15:50)
--- NOTE | 2017-03-26 16:04 | ED ---
General Adult HPI - General Chief complaint: Altered Mental Status Stated complaint: Fall Time Seen by Provider: 03/26/17 11:04 Source: patient, EMS, RN notes reviewed Mode of arrival: EMS Limitations: altered mental status - History of Present Illness Initial comments: 82-year-old female presented from the care home after being found down. Patient is on Coumadin. There is no reported history of head trauma or loss of consciousness. There is no external signs of trauma. Patient is unable to give detailed history. At the time of my evaluation she denies chest pain or shortness of breath. Denies any pain complaints. She states she fell several weeks ago and had some bruising on her hip. Denies fever or chills. - Related Data Home Medications Medication Instructions Recorded Confirmed Lactulose 10 gm PO DAILY PRN 03/25/16 03/26/17 Levothyroxine Sodium [Synthroid] 150 mcg PO DAILY 03/25/16 03/26/17 Polyethylene Glycol 3350 [Miralax] 17 gm PO DAILY PRN 03/25/16 03/26/17 Lisinopril [Zestril] 5 mg PO DAILY 07/11/16 03/26/17 Loperamide [Imodium] 2 mg PO Q6H PRN 07/11/16 03/26/17 Potassium Chloride [Klor-Con 10] 10 meq PO DAILY 07/11/16 03/26/17 Carvedilol [Coreg] 6.25 mg PO BID@0800,2100 11/24/16 03/26/17 Ferrous Sulfate [Feosol] 325 mg PO DAILY 11/24/16 03/26/17 Furosemide [Lasix] 40 mg PO DAILY 11/24/16 03/26/17 Simvastatin [Zocor] 40 mg PO HS@2100 11/24/16 03/26/17 Warfarin [Coumadin] 2 mg PO HS@2100 11/24/16 03/26/17 Aspirin 81 mg PO DAILY 03/21/17 03/26/17 Methenamine Hippurate [Hiprex] 1 gm PO DAILY 03/21/17 03/26/17 Albuterol Sulfate [Proair Hfa] 2 puff INHALATION RT-Q6H PRN 03/26/17 03/26/17 SILVER sulfADIAZINE Cream 1 applic TOPICAL HS 03/26/17 03/26/17 [Silvadene 1% Cream] traMADol HCL [Ultram] 50 mg PO Q6H PRN 03/26/17 03/26/17 Allergies Allergy/AdvReac Type Severity Reaction Status Date / Time ciprofloxacin [From Cipro] Allergy Unknown Verified 03/26/17 11:50 lisinopril Allergy Unknown Verified 03/26/17 11:50 Sulfa (Sulfonamide Allergy Unknown Verified 03/26/17 11:50 Antibiotics) Review of Systems ROS Statement: Those systems with pertinent positive or pertinent negative responses have been documented in the HPI. ROS Other: All systems not noted in ROS Statement are negative. Past Medical History Past Medical History: Atrial Fibrillation, Coronary Artery Disease (CAD), Cancer , Chest Pain / Angina, Dementia, Deep Vein Thrombosis (DVT), Hyperlipidemia, Memory Impairment, Pulmonary Embolus (PE), Syncope, Thyroid Disorder Additional Past Medical History / Comment(s): ? TIA , SEVERAL UTI'S (ECOLI) MEMORY GETTING WORSE PER DAUGHTER HAS DEMENTIA. FALLS,,CELLULITIS LOWER LEGS, [facility] DOING SILVADENE DRESSING CHANGES, LT BREAST CANCER. DDD History of Any Multi-Drug Resistant Organisms: ESBL Date of last positivie culture/infection: 11/25/16 ESBL E.coli MDRO Source:: Urine Past Surgical History: AICD, Bladder Surgery, Breast Surgery, Coronary Bypass/ CABG, Heart Catheterization, Pacemaker Additional Past Surgical History / Comment(s): LEFT BREAST MASTECTOMY AT [facility]- NO CHEMO OR RADIATION, CABG AT [facility], PREVIOUSLY CHARTED PACEMAKER /[facility] Past Anesthesia/Blood Transfusion Reactions: Unable to Obtain Type of Cardiac Device: Permanent Pacemaker, AICD Device Placement Date:: APPROX 5-6 YRS AGO Past Psychological History: Unable to Obtain Smoking Status: Never smoker Past Alcohol Use History: Occasional - Past Family History Father Family Medical History: Unable to Obtain Mother Family Medical History: Unable to Obtain General Exam Limitations: altered mental status General appearance: in no apparent distress Head exam: Present: atraumatic, normocephalic Eye exam: Present: normal appearance, PERRL ENT exam: Present: mucous membranes dry Neck exam: Present: full ROM. Absent: tenderness Respiratory exam: Present: normal lung sounds bilaterally. Absent: respiratory distress Cardiovascular Exam: Present: regular rate, normal rhythm GI/Abdominal exam: Present: soft. Absent: distended, tenderness Extremities exam: Present: pedal edema, other (Hematoma over the left hip) Neurological exam: Present: altered, CN II-XII intact, other (No focal motor deficit). Absent: motor sensory deficit Psychiatric exam: Present: normal affect, normal mood Skin exam: Present: warm, dry Course Vital Signs 03/26/17 03/26/17 03/26/17 11:14 13:38 14:45 Temperature 97.7 F Pulse Rate 70 76 73 Respiratory 16 16 16 Rate Blood Pressure 144/82 108/59 121/57 O2 Sat by Pulse 94 L 100 96 Oximetry EKG Findings - EKG Comments: EKG Findings:: EKG shows a ventricular rate of 71, paced with occasional PVCs, there is QRS duration 186, prolonged QT at 549. It there is some T-wave inversions in V2 and V3. Medical Decision Making - Medical Decision Making 83-year-old female presenting with confusion and altered mental status. Patient was found down at the care home. There is no recent external signs of trauma. Unsure if the patient and her head or loss consciousness. Patient is supposed be on Coumadin but states she has not been taking her regularly. Patient has no complaints of the time of evaluation just states that she wants to go home. States head CT is negative for hemorrhage, laboratory analysis does reveal a elevated creatinine and BUN. This may be the cause of the patient 's acute confusion. She is given IV fluids. She will be admitted to internal medicine for further evaluation and treatment. Diagnosis uremic encephalopathy. - Lab Data Result diagrams: 03/26/17 11:20 03/26/17 11:20 Lab Results 03/26/17 03/26/17 03/26/17 Range/Units 11:20 11:20 11:20 WBC (3.8-10.6) k/uL RBC (3.80-5.40) m/uL Hgb (11.4-16.0) gm/dL Hct (34.0-46.0) % MCV (80.0-100.0) fL MCH (25.0-35.0) pg MCHC (31.0-37.0) g/dL RDW (11.5-15.5) % Plt Count (150-450) k/uL Neutrophils % % Lymphocytes % % Monocytes % % Eosinophils % % Basophils % % Neutrophils # (1.3-7.7) k/uL Lymphocytes # (1.0-4.8) k/uL Monocytes # (0-1.0) k/uL Eosinophils # (0-0.7) k/uL Basophils # (0-0.2) k/uL Hypochromasia PT (9.0-12.0) sec INR (<1.1) APTT (22.0-30.0) sec VBG pH 7.31 (7.31-7.41) VBG pCO2 51 (37-51) mmHg VBG HCO3 25 (24-28) mmol/L Sodium (137-145) mmol/L Potassium (3.5-5.1) mmol/L Chloride (98-107) mmol/L Carbon Dioxide (22-30) mmol/L Anion Gap mmol/L BUN (7-17) mg/dL Creatinine (0.52-1.04) mg/dL Est GFR (MDRD) Af Amer (>60 ml/min/1.73 sqM) Est GFR (MDRD) Non-Af (>60 ml/min/1.73 sqM) Glucose (74-99) mg/dL Plasma Lactic Acid Ronn (0.7-2.0) mmol/L Calcium (8.4-10.2) mg/dL Total Bilirubin (0.2-1.3) mg/dL AST (14-36) U/L ALT (9-52) U/L Alkaline Phosphatase (38-126) U/L Total Creatine Kinase 48 (30-135) U/L CK-MB (CK-2) 0.8 (0.0-2.4) ng/mL CK-MB (CK-2) Rel Index 1.7 Troponin I 0.029 (0.000-0.034) ng/mL Total Protein (6.3-8.2) g/dL Albumin (3.5-5.0) g/dL TSH (0.465-4.680) mIU/L Urine Color Urine Appearance (Clear) Urine pH (5.0-8.0) Ur Specific Chloe (1.001-1.035) Urine Protein (Negative) Urine Glucose (UA) (Negative) Urine Ketones (Negative) Urine Blood (Negative) Urine Nitrite (Negative) Urine Bilirubin (Negative) Urine Urobilinogen (<2.0) mg/dL Ur Leukocyte Esterase (Negative) Urine WBC (0-5) /hpf Ur Squamous Epith Cells (0-4) /hpf Urine Bacteria (None) /hpf Hyaline Casts (0-2) /lpf Urine Mucus (None) /hpf Urine Opiates Screen (NotDetected) Ur Oxycodone Screen (NotDetected) Urine Methadone Screen (NotDetected) Ur Propoxyphene Screen (NotDetected) Ur Barbiturates Screen (NotDetected) U Tricyclic Antidepress (NotDetected) Ur Phencyclidine Scrn (NotDetected) Ur Amphetamines Screen (NotDetected) U Methamphetamines Scrn (NotDetected) U Benzodiazepines Scrn (NotDetected) Urine Cocaine Screen (NotDetected) U Marijuana (THC) Screen (NotDetected) Blood Type AB Positive Blood Type Recheck No Antibody Screen NEGATIVE Spec Expiration Date 03/29/2017 - 231903/26/17 03/26/17 03/26/17 Range/Units 11:20 11:20 11:20 WBC 8.3 (3.8-10.6) k/uL RBC 3.40 L (3.80-5.40) m/uL Hgb 10.8 L (11.4-16.0) gm/dL Hct 33.6 L (34.0-46.0) % MCV 98.8 (80.0-100.0) fL MCH 31.7 (25.0-35.0) pg MCHC 32.1 (31.0-37.0) g/dL RDW 14.5 (11.5-15.5) % Plt Count 201 (150-450) k/uL Neutrophils % 83 % Lymphocytes % 6 % Monocytes % 8 % Eosinophils % 2 % Basophils % 0 % Neutrophils # 6.9 (1.3-7.7) k/uL Lymphocytes # 0.5 L (1.0-4.8) k/uL Monocytes # 0.6 (0-1.0) k/uL Eosinophils # 0.2 (0-0.7) k/uL Basophils # 0.0 (0-0.2) k/uL Hypochromasia Moderate PT (9.0-12.0) sec INR (<1.1) APTT (22.0-30.0) sec VBG pH (7.31-7.41) VBG pCO2 (37-51) mmHg VBG HCO3 (24-28) mmol/L Sodium 144 (137-145) mmol/L Potassium 3.6 (3.5-5.1) mmol/L Chloride 106 (98-107) mmol/L Carbon Dioxide 24 (22-30) mmol/L Anion Gap 14 mmol/L BUN 51 H (7-17) mg/dL Creatinine 1.71 H (0.52-1.04) mg/dL Est GFR (MDRD) Af Amer 35 (>60 ml/min/1.73 sqM) Est GFR (MDRD) Non-Af 29 (>60 ml/min/1.73 sqM) Glucose 122 H (74-99) mg/dL Plasma Lactic Acid Ronn 1.1 (0.7-2.0) mmol/L Calcium 9.7 (8.4-10.2) mg/dL Total Bilirubin 2.5 H (0.2-1.3) mg/dL AST 27 (14-36) U/L ALT 15 (9-52) U/L Alkaline Phosphatase 129 H (38-126) U/L Total Creatine Kinase (30-135) U/L CK-MB (CK-2) (0.0-2.4) ng/mL CK-MB (CK-2) Rel Index Troponin I (0.000-0.034) ng/mL Total Protein 7.6 (6.3-8.2) g/dL Albumin 4.0 (3.5-5.0) g/dL TSH 3.340 (0.465-4.680) mIU/L Urine Color Urine Appearance (Clear) Urine pH (5.0-8.0) Ur Specific Chloe (1.001-1.035) Urine Protein (Negative) Urine Glucose (UA) (Negative) Urine Ketones (Negative) Urine Blood (Negative) Urine Nitrite (Negative) Urine Bilirubin (Negative) Urine Urobilinogen (<2.0) mg/dL Ur Leukocyte Esterase (Negative) Urine WBC (0-5) /hpf Ur Squamous Epith Cells (0-4) /hpf Urine Bacteria (None) /hpf Hyaline Casts (0-2) /lpf Urine Mucus (None) /hpf Urine Opiates Screen (NotDetected) Ur Oxycodone Screen (NotDetected) Urine Methadone Screen (NotDetected) Ur Propoxyphene Screen (NotDetected) Ur Barbiturates Screen (NotDetected) U Tricyclic Antidepress (NotDetected) Ur Phencyclidine Scrn (NotDetected) Ur Amphetamines Screen (NotDetected) U Methamphetamines Scrn (NotDetected) U Benzodiazepines Scrn (NotDetected) Urine Cocaine Screen (NotDetected) U Marijuana (THC) Screen (NotDetected) Blood Type Blood Type Recheck Antibody Screen Spec Expiration Date 03/26/17 03/26/17 03/26/17 Range/Units 11:20 12:25 12:25 WBC (3.8-10.6) k/uL RBC (3.80-5.40) m/uL Hgb (11.4-16.0) gm/dL Hct (34.0-46.0) % MCV (80.0-100.0) fL MCH (25.0-35.0) pg MCHC (31.0-37.0) g/dL RDW (11.5-15.5) % Plt Count (150-450) k/uL Neutrophils % % Lymphocytes % % Monocytes % % Eosinophils % % Basophils % % Neutrophils # (1.3-7.7) k/uL Lymphocytes # (1.0-4.8) k/uL Monocytes # (0-1.0) k/uL Eosinophils # (0-0.7) k/uL Basophils # (0-0.2) k/uL Hypochromasia PT 15.4 H (9.0-12.0) sec INR 1.6 (<1.1) APTT 26.0 (22.0-30.0) sec VBG pH (7.31-7.41) VBG pCO2 (37-51) mmHg VBG HCO3 (24-28) mmol/L Sodium (137-145) mmol/L Potassium (3.5-5.1) mmol/L Chloride (98-107) mmol/L Carbon Dioxide (22-30) mmol/L Anion Gap mmol/L BUN (7-17) mg/dL Creatinine (0.52-1.04) mg/dL Est GFR (MDRD) Af Amer (>60 ml/min/1.73 sqM) Est GFR (MDRD) Non-Af (>60 ml/min/1.73 sqM) Glucose (74-99) mg/dL Plasma Lactic Acid Ronn (0.7-2.0) mmol/L Calcium (8.4-10.2) mg/dL Total Bilirubin (0.2-1.3) mg/dL AST (14-36) U/L ALT (9-52) U/L Alkaline Phosphatase (38-126) U/L Total Creatine Kinase (30-135) U/L CK-MB (CK-2) (0.0-2.4) ng/mL CK-MB (CK-2) Rel Index Troponin I (0.000-0.034) ng/mL Total Protein (6.3-8.2) g/dL Albumin (3.5-5.0) g/dL TSH (0.465-4.680) mIU/L Urine Color Yellow Urine Appearance Clear (Clear) Urine pH 5.5 (5.0-8.0) Ur Specific Chloe 1.010 (1.001-1.035) Urine Protein Trace H (Negative) Urine Glucose (UA) Negative (Negative) Urine Ketones Negative (Negative) Urine Blood Negative (Negative) Urine Nitrite Negative (Negative) Urine Bilirubin Negative (Negative) Urine Urobilinogen <2.0 (<2.0) mg/dL Ur Leukocyte Esterase Small H (Negative) Urine WBC 11 H (0-5) /hpf Ur Squamous Epith Cells 3 (0-4) /hpf Urine Bacteria Many H (None) /hpf Hyaline Casts 10 H (0-2) /lpf Urine Mucus Rare H (None) /hpf Urine Opiates Screen Not Detected (NotDetected) Ur Oxycodone Screen Not Detected (NotDetected) Urine Methadone Screen Not Detected (NotDetected) Ur Propoxyphene Screen Not Detected (NotDetected) Ur Barbiturates Screen Not Detected (NotDetected) U Tricyclic Antidepress Not Detected (NotDetected) Ur Phencyclidine Scrn Not Detected (NotDetected) Ur Amphetamines Screen Not Detected (NotDetected) U Methamphetamines Scrn Not Detected (NotDetected) U Benzodiazepines Scrn Not Detected (NotDetected) Urine Cocaine Screen Not Detected (NotDetected) U Marijuana (THC) Screen Not Detected (NotDetected) Blood Type Blood Type Recheck Antibody Screen Spec Expiration Date Disposition Clinical Impression: Altered mental status, Uremic encephalopathy Disposition: ADMITTED IP TO THIS [facility] Condition: Stable Referrals: Kristin Hernandez MD [Primary Care Provider] - 1-2 days Decision to Admit Reason: Admit from EC Decision Date: 03/26/17 Decision Time: 15:00
[2017-03-27] MEDS: SODIUM CHLORIDE 0.9% 1,000 ML IV SCH ×3 (01:21→14:28)
[2017-03-27 07:16] LABS: Basophils % (A) 0 %; CH 29.9; CHCM 29.9; Eosinophils # (A) 0.3 k/uL (0-0.7); Eosinophils % (A) 5 %; HCT 31.2 % (34.0-46.0); HDW 2.81; HGB 9.6 gm/dL (11.4-16.0); Hypochromasia Marked; Luc % (Auto) 2; Lymphocytes # (A) 0.5 k/uL (1.0-4.8); Lymphocytes % (A) 8 %; MCH 30.8 pg (25.0-35.0); MCHC 30.7 g/dL (31.0-37.0); MCV 100.2 fL (80.0-100.0); Macrocytosis Slight; Mean Platelet Volume 7.4; Monocytes # (A) 0.6 k/uL (0-1.0); Monocytes % (A) 10 %; Neutrophils # (A) 4.5 k/uL (1.3-7.7); Neutrophils % (A) 76 %; RBC 3.11 m/uL (3.80-5.40); RDW 14.2 % (11.5-15.5); WBC 5.9 k/uL (3.8-10.6); WBC (Perox) 6.15
[2017-03-27 07:44] LABS: Calcium 8.8 mg/dL (8.4-10.2); Potassium 3.3 mmol/L (3.5-5.1)
[2017-03-27] MEDS ORDERED: traMADol 50 MG TAB PO PRN (13:01)
[2017-03-27] MEDS ORDERED: POLYETHYLENE GLYCOL 3350 17 GM POWD.PACK PO PRN (13:01)
[2017-03-27] MEDS ORDERED: Potassium Replacement Protocol 1 EACH MISC MISCELLANE PRN (13:03)
[2017-03-27] MEDS ORDERED: LISINOPRIL 5 MG TAB PO SCH (13:15)
--- NOTE | 2017-03-27 13:37 | P.HPIM ---
History of Present Illness H&P Date: 03/27/17 Chief Complaint: Presyncope This is a 82-year-old female with very complex past medical history noted below who is currently admitted to the hospital for further evaluation of presyncope. Patient had underlying dementia and is a very poor historian. She was fixed on the idea that she wants to get out of the hospital and was not very cooperative with my interview. Most of the history was obtained by chart review and talking to her daughter at bedside. Apparently patient lives in a assisted living facility and she was sent to get out of bed when she collapsed and failed to the ground. It is unclear if she hit her head. She was evaluated by the staff at the facility and was found to be confused and not answering questions appropriately. There was no seizure- like activity. No loss of control of urine or bowel. Patient was rushed to the emergency room for further evaluation. On presentation, computed tomography scan of the brain and cervical spine showed no acute findings. Patient is on anticoagulation with Coumadin at home for underlying A. fib but her INR was stopped therapeutic. 12-lead EKG showed paced rhythm with infrequent PVCs. Patient was admitted to the observation. She is awake and alert today. Review of Systems Review of system: 14 points review of systems were obtained and were negative except to what were mentioned in the HPI. Past Medical History Past Medical History: Atrial Fibrillation, Coronary Artery Disease (CAD), Cancer , Chest Pain / Angina, Dementia, Deep Vein Thrombosis (DVT), Hyperlipidemia, Memory Impairment, Pulmonary Embolus (PE), Syncope, Thyroid Disorder Additional Past Medical History / Comment(s): ? TIA , SEVERAL UTI'S (ECOLI) MEMORY GETTING WORSE PER DAUGHTER HAS DEMENTIA. FALLS,HAS BEEN GOING TO [facility] FOR [facility], HOME CARE DOING SILVADENE DRESSING CHANGES, LT BREAST CANCER. DDD, INCONT OF BOTH URINE AND STOOL-WEARS DEPENDS. History of Any Multi-Drug Resistant Organisms: ESBL, MRSA Date of last positivie culture/infection: 11/25/16 ESBL E.coli/ 2012 ? WHEN AT [facility](PER DAUGHTER) MDRO Source:: Urine/ LEGS Past Surgical History: AICD, Bladder Surgery, Breast Surgery, Coronary Bypass/ CABG, Heart Catheterization, Pacemaker Additional Past Surgical History / Comment(s): LEFT BREAST MASTECTOMY AT [facility]- NO CHEMO OR RADIATION, CABG AT [facility], PREVIOUSLY CHARTED PACEMAKER /[facility]C Past Anesthesia/Blood Transfusion Reactions: No Reported Reaction Type of Cardiac Device: Permanent Pacemaker, AICD Device Placement Date:: APPROX 5-6 YRS AGO Smoking Status: Never smoker - Past Family History Father Family Medical History: No Reported History Additional Family Medical History / Comment(s): ALCOHOLIC Mother Family Medical History: Congestive Heart Failure (CHF), CVA/TIA, Dementia Medications and Allergies Home Medications Medication Instructions Recorded Confirmed Type Lactulose 10 gm PO DAILY PRN 03/25/16 03/26/17 History Levothyroxine Sodium [Synthroid] 150 mcg PO DAILY 03/25/16 03/26/17 History Polyethylene Glycol 3350 [Miralax] 17 gm PO DAILY PRN 03/25/16 03/26/17 History Lisinopril [Zestril] 5 mg PO DAILY 07/11/16 03/26/17 History Loperamide [Imodium] 2 mg PO Q6H PRN 07/11/16 03/26/17 History Potassium Chloride [Klor-Con 10] 10 meq PO DAILY 07/11/16 03/26/17 History Carvedilol [Coreg] 6.25 mg PO BID@0800,2100 11/24/16 03/26/17 History Ferrous Sulfate [Feosol] 325 mg PO DAILY 11/24/16 03/26/17 History Furosemide [Lasix] 40 mg PO DAILY 11/24/16 03/26/17 History Simvastatin [Zocor] 40 mg PO HS@2100 11/24/16 03/26/17 History Warfarin [Coumadin] 2 mg PO HS@2100 11/24/16 03/26/17 History Aspirin 81 mg PO DAILY 03/21/17 03/26/17 History Methenamine Hippurate [Hiprex] 1 gm PO DAILY 03/21/17 03/26/17 History Albuterol Sulfate [Proair Hfa] 2 puff INHALATION RT-Q6H PRN 03/26/17 03/26/17 History SILVER sulfADIAZINE Cream 1 applic TOPICAL HS 03/26/17 03/26/17 History [Silvadene 1% Cream] traMADol HCL [Ultram] 50 mg PO Q6H PRN 03/26/17 03/26/17 History Allergies Allergy/AdvReac Type Severity Reaction Status Date / Time ciprofloxacin [From Cipro] Allergy Unknown Verified 03/26/17 11:50 lisinopril Allergy Unknown Verified 03/26/17 11:50 Sulfa (Sulfonamide Allergy Unknown Verified 03/26/17 11:50 Antibiotics) Physical Exam Vitals: Vital Signs Temp Pulse Pulse Pulse Resp BP BP 03/27/17 12:00 98.5 F 86 15 99/66 03/27/17 08:00 97.1 F L 76 16 147/67 03/27/17 03:41 18 03/27/17 03:34 98.1 F 82 18 111/66 03/27/17 00:00 97.9 F 72 18 106/52 03/26/17 20:00 97.9 F 63 18 105/55 03/26/17 17:00 97.0 F L 62 20 118/76 03/26/17 16:30 75 20 107/52 03/26/17 14:45 73 16 121/57 03/26/17 13:38 76 16 108/59 Pulse Ox 03/27/17 12:00 98 03/27/17 08:00 100 03/27/17 03:41 03/27/17 03:34 98 03/27/17 00:00 99 03/26/17 20:00 97 03/26/17 17:00 99 03/26/17 16:30 97 03/26/17 14:45 96 03/26/17 13:38 100 Intake and Output 03/26/17 03/27/17 03/27/17 22:59 06:59 14:59 Intake Total 450 Balance 450 Intake: IV 300 Sodium Chloride 0.9% 1, 300 000 ml @ 75 mls/hr IV . [id number] [facility] Rx#:[id number] Oral 150 Other: Voiding Method Bedside Commode Toilet Toilet Incontinent Incontinent Incontinent # Voids 2 1 General: The patient is awake and alert, in no distress Eye: there is normal conjunctiva bilaterally. Neck: The neck is supple, there is no JVD. Cardiovascular: Normal S1-S2, no S3-S4, no murmurs. Respiratory: Lungs clear to auscultation bilaterally Gastrointestinal: Abdomen is soft, nontender Musculoskeletal: There is chronic eczematous venous insufficiency changes. The right lower extremity wrapped with dry/clean dressing. The further nursing documentation for one description. Neurological:. Speech is normal. Skin: Skin is warm and dry Results CBC & Chem 7: 03/27/17 06:38 03/27/17 06:38 Labs: Abnormal Lab Results - Last 24 Hours (Table) 03/27/17 03/27/17 Range/Units 06:38 06:38 RBC 3.11 L (3.80-5.40) m/uL Hgb 9.6 L (11.4-16.0) gm/dL Hct 31.2 L (34.0-46.0) % MCV 100.2 H (80.0-100.0) fL MCHC 30.7 L (31.0-37.0) g/dL Lymphocytes # 0.5 L (1.0-4.8) k/uL Potassium 3.3 L (3.5-5.1) mmol/L Chloride 110 H (98-107) mmol/L BUN 42 H (7-17) mg/dL Creatinine 1.31 H (0.52-1.04) mg/dL Thrombosis Risk Factor Assmnt - Choose All That Apply Any of the Below Risk Factors Present?: Yes Each Factor Represents 1 point: Swollen legs (current) Other Risk Factors: Yes Each Risk Factor Represents 2 Points: Malignancy Each Risk Factor Represents 3 Points: Age 75 years or older, History of DVT/PE Other congenital or acquired thrombophilia - If yes, enter type in comment: No Thrombosis Risk Factor Assessment Total Risk Factor Score: 9 Thrombosis Risk Factor Assessment Level: High Risk Assessment and Plan Plan: 1. Presyncope: exact etiology unclear. May be attributed to dehydration and orthostatic hypotension. Patient received IV fluid hydration overnight. I will recheck orthostatic blood pressure. I would obtain echocardiogram. 12- leads EKG showed paced rhythm with frequent PVCs. I would consult cardiology. We will continue telemetry monitoring. 2. Acute kidney injury, most likely prerenal secondary to intravascular depletion and dehydration. Improved with IV fluid hydration. 3. Uncomplicated urinary tract infection, I would start IV ceftriaxone awaiting urine culture 4. Fall with uncertain head trauma. Patient denies any headache. Computed tomography scan of the head and cervical spine showed no acute findings in the emergency room. I would defer on obtaining 24-hour follow-up CT as patient's INR was 1.6 on presentation 5. Chronic ischemic cardiomyopathy with underlying systolic heart failure and ejection fraction of 20% 6. Coronary artery disease with prior CABG and stent placement 7. Chronic atrial fibrillation on anticoagulation with Coumadin 8. Physical debility, will consult PT/OT. Patient may benefit from subacute rehab. Today, I reviewed her medication list and lab work results. I would hold off on all nephrotoxic. I would also discontinue some of her blood pressure medicine given that her blood pressure is borderline low. We will repeat lab work in the morning. Appreciate apprenticeship consultant's recommendations.
[2017-03-27 14:15] VITALS: BMI 24.0
[2017-03-27] MEDS: ASPIRIN 81 MG CHEW PO SCH (14:26)
[2017-03-27] MEDS: LEVOTHYROXINE 75 MCG TAB PO SCH (14:27)
[2017-03-27] MEDS ORDERED: WARFARIN 2 MG TAB PO SCH (21:00)
[2017-03-27] MEDS ORDERED: ATORVASTATIN 20 MG TAB PO SCH (21:00)
[2017-03-27] MEDS: POTASSIUM CHLORIDE 10 MEQ in WATER FOR INJECTION 1 100ML.BAG IVPB SCH ×2 (21:52→23:28)
[2017-03-27] MEDS: CARVEDILOL 6.25 MG TAB PO SCH (22:25)
[2017-03-28 00:04] VITALS: RESP 16
[2017-03-28 05:40] VITALS: PULSE 65
[2017-03-28] MEDS: LEVOTHYROXINE 75 MCG TAB PO SCH (06:23)
[2017-03-28 06:30] LABS: Basophils % (A) 1 %; CH 29.2; CHCM 28.8; Eosinophils # (A) 0.3 k/uL (0-0.7); Eosinophils % (A) 5 %; HCT 34.7 % (34.0-46.0); HDW 2.78; HGB 10.5 gm/dL (11.4-16.0); Hypochromasia Marked; Luc # (Auto) 0.07; Luc % (Auto) 1; Lymphocytes # (A) 0.7 k/uL (1.0-4.8); Lymphocytes % (A) 12 %; MCH 30.9 pg (25.0-35.0); MCHC 30.4 g/dL (31.0-37.0); MCV 101.7 fL (80.0-100.0); Macrocytosis Slight; Mean Platelet Volume 7.4; Monocytes # (A) 0.4 k/uL (0-1.0); Monocytes % (A) 8 %; Neutrophils % (A) 74 %; RBC 3.41 m/uL (3.80-5.40); RDW 14.4 % (11.5-15.5); WBC 5.5 k/uL (3.8-10.6); WBC (Perox) 5.52
[2017-03-28 06:44] LABS: Calcium 8.9 mg/dL (8.4-10.2); Potassium 4.2 mmol/L (3.5-5.1)
[2017-03-28 06:46] LABS: INR 1.7 (<1.1); Prothrombin Time 16.1 sec (9.0-12.0)
[2017-03-28] MEDS: ASPIRIN 81 MG CHEW PO SCH (07:58)
[2017-03-28] MEDS: CARVEDILOL 6.25 MG TAB PO SCH (07:58)
[2017-03-28] MEDS: SODIUM CHLORIDE 0.9% 1,000 ML IV SCH (07:59)
[2017-03-28] MEDS ORDERED: FERROUS SULFATE 325 MG TAB PO SCH (09:00)
--- NOTE | 2017-03-28 09:36 | P.CRDCN ---
History of Present Illness Consult date: 03/28/17 Requesting physician: Puma Alvares Consult reason: sycope Chief complaint: Syncope History of present illness: This is a pleasant 82-year-old female who follows with Dr. Nice in the office. She has a known history of chronic persistent atrial fibrillation, on Coumadin for anticoagulation, history of coronary artery disease with prior bypass, ischemic cardiomyopathy status post biventricular AICD implantation, prior pulmonary embolism, hyperlipidemia, hypothyroidism and dementia. According to the patient, she was found lying on the floor in her apartment, she states that she has been falling occasionally at home. Patient denies any syncope however she is partially confused as well. Patient is very irritated this morning and wants to go home. Blood pressure on arrival here 144/80 with a heart rate in the 70s. 94% on 2 L of oxygen. Hemoglobin 10.5 this morning, INR 1.7, potassium 4.2. On admission the BUN was 51 and creatinine 1.7, this morning 34 and 1.1. TSH normal. Chest x-ray on admission reveals chronic changes and cardiomegaly without any acute cardiopulmonary process. EKG shows a ventricular paced rhythm with occasional PVCs. CAT scan of the brain does not reveal any acute intracranial abnormality. Mild to moderate generalized atrophy and mild changes of chronic small vessel ischemic change. No acute fracture of the spine. Pelvic x-ray does not reveal any acute fracture or dislocation of the pelvis. Cardiogram with Doppler study was performed which revealed an ejection fraction of 20-25%. Moderate mitral regurgitation moderate to severe tricuspid regurg. Past Medical History Past Medical History: Atrial Fibrillation, Coronary Artery Disease (CAD), Cancer , Chest Pain / Angina, Dementia, Deep Vein Thrombosis (DVT), Hyperlipidemia, Memory Impairment, Pulmonary Embolus (PE), Syncope, Thyroid Disorder Additional Past Medical History / Comment(s): ? TIA , SEVERAL UTI'S (ECOLI) MEMORY GETTING WORSE PER DAUGHTER HAS DEMENTIA. FALLS,HAS BEEN GOING TO [facility] FOR [facility]G WOUNDS, HOME CARE DOING SILVADENE DRESSING CHANGES, LT BREAST CANCER. DDD, INCONT OF BOTH URINE AND STOOL-WEARS DEPENDS. History of Any Multi-Drug Resistant Organisms: ESBL, MRSA Date of last positivie culture/infection: 11/25/16 ESBL E.coli/ 2013 ? WHEN AT [place](PER DAUGHTER) MDRO Source:: Urine/ LEGS Past Surgical History: AICD, Bladder Surgery, Breast Surgery, Coronary Bypass/ CABG, Heart Catheterization, Pacemaker Additional Past Surgical History / Comment(s): LEFT BREAST MASTECTOMY AT [facility]- NO CHEMO OR RADIATION, CABG AT [facility], PREVIOUSLY CHARTED PACEMAKER /AIDC Past Anesthesia/Blood Transfusion Reactions: No Reported Reaction Type of Cardiac Device: Permanent Pacemaker, AICD Device Placement Date:: APPROX 5-6 YRS AGO Smoking Status: Never smoker - Past Family History Father Family Medical History: No Reported History Additional Family Medical History / Comment(s): ALCOHOLIC Mother Family Medical History: Congestive Heart Failure (CHF), CVA/TIA, Dementia Medications and Allergies Home Medications Medication Instructions Recorded Confirmed Type Lactulose 10 gm PO DAILY PRN 03/25/16 03/26/17 History Levothyroxine Sodium [Synthroid] 150 mcg PO DAILY 03/25/16 03/26/17 History Polyethylene Glycol 3350 [Miralax] 17 gm PO DAILY PRN 03/25/16 03/26/17 History Lisinopril [Zestril] 5 mg PO DAILY 07/11/16 03/26/17 History Loperamide [Imodium] 2 mg PO Q6H PRN 07/11/16 03/26/17 History Potassium Chloride [Klor-Con 10] 10 meq PO DAILY 07/11/16 03/26/17 History Carvedilol [Coreg] 6.25 mg PO BID@0800,2100 11/24/16 03/26/17 History Ferrous Sulfate [Feosol] 325 mg PO DAILY 11/24/16 03/26/17 History Furosemide [Lasix] 40 mg PO DAILY 11/24/16 03/26/17 History Simvastatin [Zocor] 40 mg PO HS@2100 11/24/16 03/26/17 History Warfarin [Coumadin] 2 mg PO HS@209911/24/16 03/26/17 History Aspirin 81 mg PO DAILY 03/21/17 03/26/17 History Methenamine Hippurate [Hiprex] 1 gm PO DAILY 03/21/17 03/26/17 History Albuterol Sulfate [Proair Hfa] 2 puff INHALATION RT-Q6H PRN 03/26/17 03/26/17 History SILVER sulfADIAZINE Cream 1 applic TOPICAL HS 03/26/17 03/26/17 History [Silvadene 1% Cream] traMADol HCL [Ultram] 50 mg PO Q6H PRN 03/26/17 03/26/17 History Allergies Allergy/AdvReac Type Severity Reaction Status Date / Time ciprofloxacin [From Cipro] Allergy Unknown Verified 03/26/17 11:50 lisinopril Allergy Unknown Verified 03/26/17 11:50 Sulfa (Sulfonamide Allergy Unknown Verified 03/26/17 11:50 Antibiotics) Physical Exam Vitals: Vital Signs Temp Pulse Pulse Pulse Pulse Resp BP 03/28/17 08:08 98.2 F 65 65 68 70 16 03/28/17 04:00 97 F L 65 16 03/28/17 00:00 70 16 03/27/17 20:00 97.1 F L 71 16 03/27/17 16:00 98 F 61 14 03/27/17 14:00 67 68 67 03/27/17 12:00 98.5 F 86 15 99/66 BP BP BP Pulse Ox 03/28/17 08:08 105/52 97 03/28/17 04:00 118/54 99 03/28/17 00:00 101/56 100 03/27/17 20:00 108/57 99 03/27/17 16:00 108/60 100 03/27/17 14:00 101/52 102/47 91/54 03/27/17 12:00 98 Intake and Output 03/27/17 03/28/17 03/28/17 22:59 06:59 14:59 Intake Total 50 600 120 Balance 50 600 120 Intake: IV 50 400 Sodium Chloride 0.9% 1, 50 400 000 ml @ 50 mls/hr IV . Q20H [facility] Rx#:[id number] Intake, IV Titration 200 Amount Potassium Chloride 10 meq 200 In Water For Injection 1 100ml.bag @ 100 mls/hr IVPB Q1H [facility] Rx#: [id number] Oral 120 Other: Voiding Method Toilet Toilet PHYSICAL EXAMINATION: HEENT: Head is atraumatic, normocephalic. Pupils equal, round. Neck is supple. There is no elevated jugular venous pressure. HEART EXAMINATION: Heart S1 and S2 irregular irregular a systolic murmur is heard. CHEST EXAMINATION: Lungs are clear to auscultation and precussion. No chest wall tenderness is noted on palpation or with deep breathing. ABDOMEN: Soft, nontender. Bowel sounds are heard. No organomegaly noted. EXTREMITIES: 1+ peripheral pulses with 2+ edema , evidence of chronic venous stasis and possible cellulitis . + NEUROLOGIC patient is awake, alert and oriented -1. . Results 03/28/17 06:01 03/28/17 06:01 Coagulation 03/28/17 Range/Units 06:01 PT 16.1 H (9.0-12.0) sec CBC 03/28/17 Range/Units 06:01 WBC 5.5 (3.8-10.6) k/uL RBC 3.41 L (3.80-5.40) m/uL Hgb 10.5 L (11.4-16.0) gm/dL Hct 34.7 (34.0-46.0) % Plt Count 181 (150-450) k/uL Comprehensive Metabolic Panel 03/28/17 Range/Units 06:01 Sodium 139 (137-145) mmol/L Potassium 4.2 (3.5-5.1) mmol/L Chloride 110 H (98-107) mmol/L Carbon Dioxide 19 L (22-30) mmol/L BUN 34 H (7-17) mg/dL Creatinine 1.18 H (0.52-1.04) mg/dL Glucose 103 H (74-99) mg/dL Calcium 8.9 (8.4-10.2) mg/dL Current Medications Generic Name Dose Route Start Last Admin Trade Name Freq PRN Reason Stop Dose Admin Acetaminophen 650 mg 03/26/17 15:50 Tylenol Tab PO Q6HR PRN Mild Pain or Fever > 100.5 Aspirin 81 mg 03/27/17 13:15 03/28/17 07:58 Aspirin PO 81 mg DAILY [facility] Administration Atorvastatin Calcium 20 mg 03/27/17 21:00 03/27/17 22:25 Lipitor PO 20 mg HS@2100 [facility] Administration Carvedilol 6.25 mg 03/27/17 21:00 03/28/17 07:58 Coreg PO 6.25 mg BID@0800,2100 [facility] Administration Ferrous Sulfate 325 mg 03/28/17 09:00 03/28/17 07:58 Feosol PO 325 mg DAILY [facility] Administration Sodium Chloride 1,000 mls @ 50 mls/hr 03/26/17 14:15 03/28/17 07:59 Saline 0.9% IV Not Given .Q20H [facility] Ceftriaxone Sodium 1,000 mg/ 50 mls @ 100 mls/hr 03/27/17 13:15 03/28/17 07: 58 Sodium Chloride IVPB 100 mls/hr Q24HR [facility] Administration Levothyroxine Sodium 150 mcg 03/27/17 13:15 03/28/17 06:23 Synthroid PO 150 mcg DAILY@0630 [facility] Administration Miscellaneous Information 1 each 03/27/17 13:03 Potassium Per Protocol MISCELLANE DAILY PRN Per Protocol Protocol Naloxone HCl 0.2 mg 03/26/17 15:50 Narcan IV Q2M PRN Opioid Reversal Polyethylene Glycol 17 gm 03/27/17 13:01 Miralax PO DAILY PRN Constipation Tramadol HCl 50 mg 03/27/17 13:01 03/27/17 13:58 Ultram PO 50 mg Q6H PRN Administration Pain Warfarin Sodium 2 mg 03/27/17 21:00 03/27/17 22:25 Coumadin PO 2 mg HS@2100 [facility] Administration Intake and Output 03/27/17 03/28/17 03/28/17 22:59 06:59 14:59 Intake Total 50 600 120 Balance 50 600 120 Intake: IV 50 400 Sodium Chloride 0.9% 1, 50 400 000 ml @ 50 mls/hr IV . Q20H [facility] Rx#:[id number] Intake, IV Titration 200 Amount Potassium Chloride 10 meq 200 In Water For Injection 1 100ml.bag @ 100 mls/hr IVPB Q1H [facility] Rx#: [id number] Oral 120 Other: Voiding Method Toilet Toilet 03/28/17 06:01 03/28/17 06:01 EKG Interpretations (text) EKG shows a ventricular paced rhythm with occasional PVC. Assessment and Plan Plan: Assessment and plan #1 episode of fall, unsure if patient actually had a syncopal episode or not. She did appear to be somewhat dehydrated on admission, and received IV fluids, creatinine improved this morning. #2 known history of coronary artery disease with prior bypass surgery stent placement #3 ischemic cardiomyopathy status post bi-V AICD #4 acute kidney injury likely secondary to dehydration #5 hypertension #6 hyperlipidemia #7 chronic persistent atrial fibrillation, on Coumadin, INR subtherapeutic Plan We will check orthostatic blood pressure and heart rate every shift. We will also interrogate the patient's device. Repeat echocardiogram with Doppler study Further recommendations to follow. DNP note has been reviewed, I agree with a documented findings and plan of care. Patient was seen and examined.
--- NOTE | 2017-03-28 11:51 | P.GSCN ---
History of Present Illness Consult date: 03/28/17 Reason for Consult: Lower extremity ulcerations, wound care recommendations. Requesting physician: Puma Alvares History of present illness: This 82-year-old female patient who is followed by Dr. Kristin Hernandez on outpatient basis. The patient has a past medical history of atrial fibrillation treated with Coumadin for anticoagulation treatment with a of 1.7, coronary artery disease with history of myocardial revascularization, dementia, and hyperlipidemia, ischemic cardiomyopathy status post biventricular AICD placement. She presented to the emergency department yesterday 03/27/2017 via EMS after she was found collapsed on the floor of her assisted living apartment. According to the patient who is a poor historian she was trying to get out of bed when she fell to the floor. She denies syncope or hitting her head. The patient has periods of confusion, and reports she is a little irritated that her friend called EMS to bring her to the hospital. She also has a history of ulcerations to her left lower leg which has been seen and followed by Dr. Cameron Kay and the wound healing center here at [facility]. In the emergency department the patient underwent a 12- lead EKG which showed a ventricular paced rhythm heart rate 71. She also underwent a computed tomography scan of her brain and C-spine without contrast which demonstrated no acute intracranial abnormalities or fracture. Due to her history of ulcerations and wound care treatment to her bilateral lower extremities Dr. Kay was asked to evaluate and follow her wounds. Review of Systems 14 point review of systems completed and was negative except as noted. - Integumentary Reports as per HPI Past Medical History Past Medical History: Atrial Fibrillation, Coronary Artery Disease (CAD), Cancer , Chest Pain / Angina, Heart Failure, Dementia, Deep Vein Thrombosis (DVT), Hyperlipidemia, Memory Impairment, Pulmonary Embolus (PE), Syncope, Thyroid Disorder Additional Past Medical History / Comment(s): Questionable TIA , SEVERAL UTI'S (ECOLI) MEMORY GETTING WORSE PER DAUGHTER HAS DEMENTIA. 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 Degenerative disc disease, INCONT OF BOTH URINE AND STOOL-WEARS DEPENDS. History of Any Multi-Drug Resistant Organisms: ESBL, MRSA Year Discovered:: 11/25/16 ESBL E.coli/ 2012 ? WHEN AT [facility](PER DAUGHTER) MDRO Source:: Urine/ LEGS Past Surgical History: AICD, Bladder Surgery, Breast Surgery, Coronary Bypass/ CABG, Heart Catheterization, Pacemaker Additional Past Surgical History / Comment(s): LEFT BREAST MASTECTOMY AT [facility]- NO CHEMO OR RADIATION, CABG AT [facility], PREVIOUSLY CHARTED PACEMAKER /AICD, left knee surgery. Past Anesthesia/Blood Transfusion Reactions: No Reported Reaction Type of Cardiac Device: Permanent Pacemaker, AICD Device Placement Date:: APPROX 5-6 YRS AGO Smoking Status: Never smoker Past Alcohol Use History: None Reported Past Drug Use History: None Reported - Past Family History Father Family Medical History: No Reported History Additional Family Medical History / Comment(s): ALCOHOLIC Mother Family Medical History: Congestive Heart Failure (CHF), CVA/TIA, Dementia Medications and Allergies Home Medications Medication Instructions Recorded Confirmed Type Lactulose 10 gm PO DAILY PRN 03/25/16 03/26/17 History Levothyroxine Sodium [Synthroid] 150 mcg PO DAILY 03/25/16 03/26/17 History Polyethylene Glycol 3350 [Miralax] 17 gm PO DAILY PRN 03/25/16 03/26/17 History Lisinopril [Zestril] 5 mg PO DAILY 07/11/16 03/26/17 History Loperamide [Imodium] 2 mg PO Q6H PRN 07/11/16 03/26/17 History Potassium Chloride [Klor-Con 10] 10 meq PO DAILY 07/11/16 03/26/17 History Carvedilol [Coreg] 6.25 mg PO BID@0800,209911/24/16 03/26/17 History Ferrous Sulfate [Feosol] 325 mg PO DAILY 11/24/16 03/26/17 History Furosemide [Lasix] 40 mg PO DAILY 11/24/16 03/26/17 History Simvastatin [Zocor] 40 mg PO HS@209911/24/16 03/26/17 History Warfarin [Coumadin] 2 mg PO HS@209911/24/16 03/26/17 History Aspirin 81 mg PO DAILY 03/21/17 03/26/17 History Methenamine Hippurate [Hiprex] 1 gm PO DAILY 03/21/17 03/26/17 History Albuterol Sulfate [Proair Hfa] 2 puff INHALATION RT-Q6H PRN 03/26/17 03/26/17 History SILVER sulfADIAZINE Cream 1 applic TOPICAL HS 03/26/17 03/26/17 History [Silvadene 1% Cream] traMADol HCL [Ultram] 50 mg PO Q6H PRN 03/26/17 03/26/17 History Allergies Allergy/AdvReac Type Severity Reaction Status Date / Time ciprofloxacin [From Cipro] Allergy Unknown Verified 03/26/17 11:50 lisinopril Allergy Unknown Verified 03/26/17 11:50 Sulfa (Sulfonamide Allergy Unknown Verified 03/26/17 11:50 Antibiotics) Surgical - Exam Vital Signs Temp Pulse Resp BP Pulse Ox 97.7 F 70 16 144/82 94 L 03/26/17 11:14 03/26/17 11:14 03/26/17 11:14 03/26/17 11:14 03/26/17 11:14 - General well nourished, no distress, no pain - Eyes PERRL, normal ocular movement - ENT normal nares, no congestion - Neck no masses, no bruits, trachea midline, no lymphadectomy - Respiratory normal expansion, normal respiratory effort, clear to percussion, clear to auscultation - Cardiovascular Heart Rate: 76 (V paced rhythm per remote telemetry) Heart Sounds: normal: S1, S2 Abnormal Heart Sounds: systolic murmur (Pansystolic) - Abdomen Abdomen: soft, non tender, bowel sounds - Genitourinary Deferred. - Rectum Deferred. - Integumentary She has a small statge II ulceration to her medial aspect of her posterior calf on the left leg. The ulceration has scant serosanguineous drainage. No purulent drainage noted. The ulceration measures about 3 cm in length.. She does have +2 edema to her bilateral lower extremities and has hemosiderin staining to bilateral lower extremities. She also has a stage II ulceration to her right medial aspect of her posterior calf on the right leg, there is clean dry and intact with no drainage noted. It measures 1.8 cm in length. no rash - Neurologic confused, memory loss - Musculoskeletal Generalized weakness. normal gait - Psychiatric Periods of confusion and does need some direction with the date and year. oriented to time, oriented to person, oriented to place, speech is normal Results - Labs 03/28/17 06:01 03/28/17 06:01 Abnormal Lab Results - Last 24 Hours (Table) 03/28/17 03/28/17 03/28/17 Range/Units 06:01 06:01 06:01 RBC 3.41 L (3.80-5.40) m/uL Hgb 10.5 L (11.4-16.0) gm/dL MCV 101.7 H (80.0-100.0) fL MCHC 30.4 L (31.0-37.0) g/dL Lymphocytes # 0.7 L (1.0-4.8) k/uL PT 16.1 H (9.0-12.0) sec Chloride 110 H (98-107) mmol/L Carbon Dioxide 19 L (22-30) mmol/L BUN 34 H (7-17) mg/dL Creatinine 1.18 H (0.52-1.04) mg/dL Glucose 103 H (74-99) mg/dL Diabetes panel 03/28/17 Range/Units 06:01 Sodium 139 (137-145) mmol/L Potassium 4.2 (3.5-5.1) mmol/L Chloride 110 H (98-107) mmol/L Carbon Dioxide 19 L (22-30) mmol/L BUN 34 H (7-17) mg/dL Creatinine 1.18 H (0.52-1.04) mg/dL Glucose 103 H (74-99) mg/dL Calcium 8.9 (8.4-10.2) mg/dL Calcium panel 03/28/17 Range/Units 06:01 Calcium 8.9 (8.4-10.2) mg/dL Pituitary panel 03/28/17 Range/Units 06:01 Sodium 139 (137-145) mmol/L Potassium 4.2 (3.5-5.1) mmol/L Chloride 110 H (98-107) mmol/L Carbon Dioxide 19 L (22-30) mmol/L BUN 34 H (7-17) mg/dL Creatinine 1.18 H (0.52-1.04) mg/dL Glucose 103 H (74-99) mg/dL Calcium 8.9 (8.4-10.2) mg/dL Adrenal panel 03/28/17 Range/Units 06:01 Sodium 139 (137-145) mmol/L Potassium 4.2 (3.5-5.1) mmol/L Chloride 110 H (98-107) mmol/L Carbon Dioxide 19 L (22-30) mmol/L BUN 34 H (7-17) mg/dL Creatinine 1.18 H (0.52-1.04) mg/dL Glucose 103 H (74-99) mg/dL Calcium 8.9 (8.4-10.2) mg/dL - Imaging Abdominal x-ray: report reviewed, image reviewed CT scan - pelvis: report reviewed EKG: report reviewed (CAT scan of the brain report reviewed), image reviewed Assessment and Plan (1) History of chronic atrial fibrillation Status: Acute (2) History of coronary artery disease Status: Acute (3) Dementia Status: Acute (4) Hyperlipidemia Status: Acute (5) History of deep vein thrombosis Status: Acute (6) History of thyroid disorder Status: Acute (7) CHF (congestive heart failure) Status: Acute (8) Fall Status: Acute (9) Venous stasis ulcer of left lower extremity Status: Acute Plan: The patient was seen and examined, her chart and diagnostics reviewed. Medical management per primary care services. The case will be discussed with Dr. Kay and further recommendations will follow. Wound care for now, we will place Opticel Silver to her bilateral lower extremity ulcerations and place gentle Tera wraps. This wound care regimen was obtained from her last wound healing center note from 03/21/2017. Thank you for this consult we look forward to working with you in the care of this patient. Time with Patient: Greater than 30
--- NOTE | 2017-03-28 12:03 | ECHOF ---
Referral Reason:syncope MEASUREMENTS -------- HEIGHT: 162.6 cm WEIGHT: 63.5 kg BP: 118/54 RVIDd: 4.0 cm (< 3.3) IVSd: 1.4 cm (0.6 - 1.1) LVIDd: 5.2 cm (3.9 - 5.3) LVPWd: 1.2 cm (0.6 - 1.1) IVSs: 1.7 cm LVIDs: 4.8 cm LVPWs: 1.6 cm LA Diam: 4.7 cm (2.7 - 3.8) LAESV Index (A-L): 48.12 ml/m Ao Diam: 3.3 cm (2.0 - 3.7) AV Cusp: 2.2 cm (1.5 - 2.6) MV EXCURSION: 18.742 mm (> 18.000) MV EF SLOPE: 46 mm/s (70 - 150) EPSS: 1.5 cm RAP: 15.00 mmHg RVSP: 53.24 mmHg FINDINGS -------- Atrial fibrillation. Pacerwire seen in RV and RA. This was a technically good study. The left ventricular size is normal. There is moderate concentric left ventricular hypertrophy. There is severe global hypokinesis of LV . Overall left ventricular systolic function is severely impaired with, an EF between 20 - 25 %. The right ventricle is moderately enlarged. LA is severely dilated >40 ml/m2 The right atrial size is normal. The aortic valve is trileaflet and appears structurally normal. Mild mitral annular calcification present. Moderate mitral regurgitation is present. Severe tricuspid regurgitation present. There is moderate pulmonary hypertension. The right ventricular systolic pressure, as measured by Doppler, is 53.24mmHg. Moderate pulmonic regurgitation. The aortic root size is normal. The inferior vena cava is dilated with poor inspiratory collapse which is consistent with estimated right atrial pressure of 20 mmHg. There is no pericardial effusion. CONCLUSIONS -------- 1. Atrial fibrillation. 2. The aortic valve is trileaflet and appears structurally normal. 3. Mild mitral annular calcification present. 4. Moderate mitral regurgitation is present. 5. Severe tricuspid regurgitation present. 6. There is moderate pulmonary hypertension. 7. The right ventricular systolic pressure, as measured by Doppler, is 53.24mmHg. 8. Moderate pulmonic regurgitation. 9. The aortic root size is normal. 10. The inferior vena cava is dilated with poor inspiratory collapse which is consistent with estimated right atrial pressure of 20 mmHg. 11. There is no pericardial effusion. 12. Pacerwire seen in RV and RA. 13. This was a technically good study. 14. There is moderate concentric left ventricular hypertrophy. 15. There is severe global hypokinesis of LV . 16. Overall left ventricular systolic function is severely impaired with, an EF between 20 - 25 %. 17. The right ventricle is moderately enlarged. 18. LA is severely dilated >40 ml/m2 19. The right atrial size is normal. COIN ROLLING MACHINE OPERATOR: Em Fulton RDCS
[2017-03-28 12:18] VITALS: BP 119/56; TEMP 97.7
[2017-03-28] MEDS ORDERED: ZOLPIDEM 5 MG TAB PO PRN (13:21)
--- NOTE | 2017-03-28 13:23 | P.PN ---
Subjective Patient is doing well today. She is requesting to be discharged home. Her defibrillator has not been interrogated as of yet. Orthostatic blood pressure checked and negative. Kidney function improving. Objective - Vital Signs Vital signs: Vital Signs Temp 97.7 F 03/28/17 12:15 Pulse 65 03/28/17 12:15 Resp 16 03/28/17 12:15 BP 119/56 03/28/17 12:15 Pulse Ox 99 03/28/17 12:15 Intake & Output 03/27/17 03/28/17 03/28/17 18:59 06:59 18:59 Intake Total 650 240 Balance 650 240 Weight 63.503 kg Intake: IV 450 Sodium Chloride 0.9% 1, 450 000 ml @ 50 mls/hr IV . Q20H [facility] Rx#:[id number] Intake, IV Titration 200 Amount Potassium Chloride 10 meq 200 In Water For Injection 1 100ml.bag @ 100 mls/hr IVPB Q1H [facility] Rx#: [id number] Oral 240 Other: Voiding Method Toilet Toilet Toilet Incontinent # Voids 1 - Exam General: The patient is awake and alert, in no distress Eye: there is normal conjunctiva bilaterally. Neck: The neck is supple, there is no JVD. Cardiovascular: Normal S1-S2, no S3-S4, no murmurs. Respiratory: Lungs clear to auscultation bilaterally Gastrointestinal: Abdomen is soft, nontender Musculoskeletal: There is no pedal edema. Neurological:. Speech is normal. Skin: Skin is warm and dry - Labs CBC & Chem 7: 03/28/17 06:01 03/28/17 06:01 Labs: Abnormal Lab Results - Last 24 Hours (Table) 03/28/17 03/28/17 03/28/17 Range/Units 06:01 06:01 06:01 RBC 3.41 L (3.80-5.40) m/uL Hgb 10.5 L (11.4-16.0) gm/dL MCV 101.7 H (80.0-100.0) fL MCHC 30.4 L (31.0-37.0) g/dL Lymphocytes # 0.7 L (1.0-4.8) k/uL PT 16.1 H (9.0-12.0) sec Chloride 110 H (98-107) mmol/L Carbon Dioxide 19 L (22-30) mmol/L BUN 34 H (7-17) mg/dL Creatinine 1.18 H (0.52-1.04) mg/dL Glucose 103 H (74-99) mg/dL Assessment and Plan Plan: 1. Presyncope: exact etiology unclear. May be attributed to dehydration and orthostatic hypotension. Patient received IV fluid hydration overnight and repeat orthostatic was negative. Echocardiogram pending. 12-leads EKG showed paced rhythm with frequent PVCs. Cardiology consulted. Awaiting interrogation of her defibrillator.. We will continue telemetry monitoring. 2. Acute kidney injury, most likely prerenal secondary to intravascular depletion and dehydration. Improved with IV fluid hydration. 3. Uncomplicated urinary tract infection, I would start IV ceftriaxone awaiting urine culture 4. Fall with uncertain head trauma. Patient denies any headache. Computed tomography scan of the head and cervical spine showed no acute findings in the emergency room. I would defer on obtaining 24-hour follow-up CT as patient's INR was 1.6 on presentation 5. Chronic ischemic cardiomyopathy with underlying systolic heart failure and ejection fraction of 20% 6. Coronary artery disease with prior CABG and stent placement 7. Chronic atrial fibrillation on anticoagulation with Coumadin 8. Physical debility, will consult PT/OT. Patient may benefit from subacute rehab. Today, I reviewed her medication list and lab work results. I would hold off on all nephrotoxic. We will repeat lab work in the morning. Appreciate sap consultant's recommendations.
--- NOTE | 2017-03-28 16:03 | P.DS ---
Providers Date of admission: 03/27/17 13:48 Expected date of discharge: 03/28/17 Attending physician: Puma Alvares Consults: 03/27/17 13:25 Consult Physician Routine Consulting Provider: Cathryn Nice Consult Reason/Comments: syncope Do you want consulting provider notified?: Yes 03/27/17 14:55 Consult Physician Routine Consulting Provider: Cameron Kay Consult Reason/Comments: pt sees for wound care Do you want consulting provider notified?: Yes Primary care physician: Kristin [facility] Course: 1. Presyncope: exact etiology unclear. May be attributed to dehydration and orthostatic hypotension. Patient received IV fluid hydration overnight and repeat orthostatic was negative. Echocardiogram showed moderate pulmonary hypertension and known EF of 20%. Other valvular abnormalities nonsignificant noted in the report.. 12-leads EKG showed paced rhythm with frequent PVCs. Cardiology consulted. Defibrillator was interrogated with no significant findings. 2. Acute kidney injury, most likely prerenal secondary to intravascular depletion and dehydration. Improved with IV fluid hydration. 3. Uncomplicated urinary tract infection, I would start IV ceftriaxone awaiting urine culture 4. Fall with uncertain head trauma. Patient denies any headache. Computed tomography scan of the head and cervical spine showed no acute findings in the emergency room. I would defer on obtaining 24-hour follow-up CT as patient's INR was 1.6 on presentation 5. Chronic ischemic cardiomyopathy with underlying systolic heart failure and ejection fraction of 20% 6. Coronary artery disease with prior CABG and stent placement 7. Chronic atrial fibrillation on anticoagulation with Coumadin Patient Condition at Discharge: Stable Plan - Discharge Summary New Discharge Prescriptions: New Cephalexin [Keflex] 250 mg PO Q8HR #15 capsule Continue Polyethylene Glycol 3350 [Miralax] 17 gm PO DAILY PRN PRN Reason: Constipation Levothyroxine Sodium [Synthroid] 150 mcg PO DAILY Lisinopril [Zestril] 5 mg PO DAILY Potassium Chloride [Klor-Con 10] 10 meq PO DAILY Warfarin [Coumadin] 2 mg PO HS@2100 Simvastatin [Zocor] 40 mg PO HS@2100 Ferrous Sulfate [Feosol] 325 mg PO DAILY Carvedilol [Coreg] 6.25 mg PO BID@0800,2100 Aspirin 81 mg PO DAILY Methenamine Hippurate [Hiprex] 1 gm PO DAILY traMADol HCL [Ultram] 50 mg PO Q6H PRN PRN Reason: Pain Albuterol Sulfate [Proair Hfa] 2 puff INHALATION RT-Q6H PRN PRN Reason: Shortness Of Breath SILVER sulfADIAZINE Cream [Silvadene 1% Cream] 1 applic TOPICAL HS Changed Furosemide [Lasix] 20 mg PO DAILY #0 Discontinued Lactulose 10 gm PO DAILY PRN PRN Reason: Constipation Loperamide [Imodium] 2 mg PO Q6H PRN PRN Reason: Diarrhea Discharge Medication List Levothyroxine Sodium [Synthroid] 150 mcg PO DAILY 03/25/16 [History] Polyethylene Glycol 3350 [Miralax] 17 gm PO DAILY PRN 03/25/16 [History] Lisinopril [Zestril] 5 mg PO DAILY 07/11/16 [History] Potassium Chloride [Klor-Con 10] 10 meq PO DAILY 07/11/16 [History] Carvedilol [Coreg] 6.25 mg PO BID@0800,2100 11/24/16 [History] Ferrous Sulfate [Feosol] 325 mg PO DAILY 11/24/16 [History] Simvastatin [Zocor] 40 mg PO HS@2100 11/24/16 [History] Warfarin [Coumadin] 2 mg PO HS@2100 11/24/16 [History] Aspirin 81 mg PO DAILY 03/21/17 [History] Methenamine Hippurate [Hiprex] 1 gm PO DAILY 03/21/17 [History] Albuterol Sulfate [Proair Hfa] 2 puff INHALATION RT-Q6H PRN 03/26/17 [History] SILVER sulfADIAZINE Cream [Silvadene 1% Cream] 1 applic TOPICAL HS 03/26/17 [ History] traMADol HCL [Ultram] 50 mg PO Q6H PRN 03/26/17 [History] Cephalexin [Keflex] 250 mg PO Q8HR #15 capsule 03/28/17 [Rx] Furosemide [Lasix] 20 mg PO DAILY #0 03/28/17 [Rx] Follow up Appointment(s)/Referral(s): Kristin Hernandez MD [Primary Care Provider] - 1-2 days [facility], [NON-STAFF] - As Needed
== END 2017-03-28 16:53 | disposition home or self-care (01) | DRG 682 ==
LOC: EC 11:00 → 3OBS 15:50 → OBSVTOIN 03-27 13:48 → 6SEL 03-27 18:12
PROVIDERS: ADMIT Internal Medicine; ATTEND Internal Medicine
DX: N17.9 Acute kidney failure, unspecified (principal); G93.49 Other encephalopathy; I48.1 Persistent atrial fibrillation; I50.22 Chronic systolic (congestive) heart failure; N39.0 Urinary tract infection, site not specified; L97.229 Non-pressure chronic ulcer of left calf with unspecified severity; L97.219 Non-pressure chronic ulcer of right calf with unspecified severity; I27.2 Other secondary pulmonary hypertension; E86.0 Dehydration; I11.0 Hypertensive heart disease with heart failure; F03.90 Unspecified dementia, unspecified severity, without behavioral disturbance, psychotic disturbance, mood disturbance, and anxiety; I48.2 Chronic atrial fibrillation; I95.1 Orthostatic hypotension; E03.9 Hypothyroidism, unspecified; I08.1 Rheumatic disorders of both mitral and tricuspid valves; E78.5 Hyperlipidemia, unspecified; I25.10 Atherosclerotic heart disease of native coronary artery without angina pectoris; I25.5 Ischemic cardiomyopathy; I49.3 Ventricular premature depolarization; R32 Unspecified urinary incontinence; I87.8 Other specified disorders of veins; Z79.01 Long term (current) use of anticoagulants; Z79.82 Long term (current) use of aspirin; Z79.899 Other long term (current) drug therapy; Z85.3 Personal history of malignant neoplasm of breast; Z86.718 Personal history of other venous thrombosis and embolism; Z95.1 Presence of aortocoronary bypass graft; Z95.5 Presence of coronary angioplasty implant and graft; Z95.810 Presence of automatic (implantable) cardiac defibrillator; Z88.1 Allergy status to other antibiotic agents; Z88.2 Allergy status to sulfonamides; Z88.8 Allergy status to other drugs, medicaments and biological substances; Z82.49 Family history of ischemic heart disease and other diseases of the circulatory system; W18.30XA Fall on same level, unspecified, initial encounter; Y92.009 Unspecified place in unspecified non-institutional (private) residence as the place of occurrence of the external cause
CPT/HCPCS: 36415; 70450; 71010; 72125; 72170; 80048; 80053; 80306; 81001; 82550; 82553; 82803; 83605; 84443; 84484; 85025; 85610; 85730; 86850; 86900; 86901; 93005; 93306; 99285

== ENCOUNTER 2017-04-11 11:17 | Emergency (ER) | payer MEDICARE ==
--- NOTE | 2017-04-11 11:22 | ED ---
General Adult HPI - General Stated complaint: Fell Time Seen by Provider: 04/11/17 11:20 Source: RN notes reviewed, old records reviewed Limitations: altered mental status - History of Present Illness Initial comments: This is an 80-year-old female ER for evaluation, history limited by dementia. Patient was sent to ER for evaluation regarding possible hip fracture secondary to fall. Patient herself voices no complaints or concerns about pain. History obtained from EMS, patient's chart. - Related Data Home Medications Medication Instructions Recorded Confirmed Levothyroxine Sodium [Synthroid] 150 mcg PO DAILY 03/25/16 04/11/17 Polyethylene Glycol 3350 [Miralax] 17 gm PO DAILY PRN 03/25/16 04/11/17 Lisinopril [Zestril] 5 mg PO DAILY 07/11/16 04/11/17 Potassium Chloride [Klor-Con 10] 10 meq PO DAILY 07/11/16 04/11/17 Carvedilol [Coreg] 6.25 mg PO BID@0800,2100 11/24/16 04/11/17 Ferrous Sulfate [Feosol] 325 mg PO DAILY 11/24/16 04/11/17 Simvastatin [Zocor] 40 mg PO HS@2100 11/24/16 04/11/17 Warfarin [Coumadin] 2 mg PO HS@2100 11/24/16 04/11/17 Aspirin 81 mg PO DAILY 03/21/17 04/11/17 Methenamine Hippurate [Hiprex] 1 gm PO DAILY 03/21/17 04/11/17 Albuterol Sulfate [Proair Hfa] 2 puff INHALATION RT-Q6H PRN 03/26/17 04/11/17 traMADol HCL [Ultram] 50 mg PO Q6H PRN 03/26/17 04/11/17 Furosemide [Lasix] 40 mg PO DAILY 04/11/17 04/11/17 Lactulose 10 gm PO DAILY 04/11/17 04/11/17 Previous Rx's Medication Instructions Recorded Nitrofurantoin Monohyd/M-Cryst 100 mg PO Q12HR #10 cap 04/11/17 [Macrobid] Allergies Allergy/AdvReac Type Severity Reaction Status Date / Time ciprofloxacin [From Cipro] Allergy Unknown Verified 04/11/17 11:57 lisinopril Allergy Unknown Verified 04/11/17 11:57 Sulfa (Sulfonamide Allergy Unknown Verified 04/11/17 11:57 Antibiotics) Review of Systems ROS Statement: Those systems with pertinent positive or pertinent negative responses have been documented in the HPI. ROS Other: All systems not noted in ROS Statement are negative. Past Medical History Past Medical History: Atrial Fibrillation, Coronary Artery Disease (CAD), Cancer , Chest Pain / Angina, Heart Failure, Dementia, Deep Vein Thrombosis (DVT), Hyperlipidemia, Memory Impairment, Pulmonary Embolus (PE), Syncope, Thyroid Disorder Additional Past Medical History / Comment(s): Questionable TIA , SEVERAL UTI'S (ECOLI) MEMORY GETTING WORSE PER DAUGHTER HAS DEMENTIA. 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 Degenerative disc disease, INCONT OF BOTH URINE AND STOOL-WEARS DEPENDS. History of Any Multi-Drug Resistant Organisms: ESBL, MRSA Date of last positivie culture/infection: 11/25/16 ESBL E.coli/ 2012 ? WHEN AT [facility](PER DAUGHTER) MDRO Source:: Urine/ LEGS Past Surgical History: AICD, Bladder Surgery, Breast Surgery, Coronary Bypass/ CABG, Heart Catheterization, Pacemaker Additional Past Surgical History / Comment(s): LEFT BREAST MASTECTOMY AT [facility]- NO CHEMO OR RADIATION, CABG AT [facility], PREVIOUSLY CHARTED PACEMAKER /AICD, left knee surgery. Past Anesthesia/Blood Transfusion Reactions: No Reported Reaction Type of Cardiac Device: Permanent Pacemaker, AICD Device Placement Date:: APPROX 5-6 YRS AGO Smoking Status: Never smoker Past Alcohol Use History: None Reported Past Drug Use History: None Reported - Past Family History Father Family Medical History: No Reported History Additional Family Medical History / Comment(s): ALCOHOLIC Mother Family Medical History: Congestive Heart Failure (CHF), CVA/TIA, Dementia Course Vital Signs 04/11/17 11:19 Temperature 97 F L Pulse Rate 68 Respiratory 18 Rate Blood Pressure 105/56 O2 Sat by Pulse 100 Oximetry - Reevaluation(s) Reevaluation #1: 04/11/17 13:21 Patient continues to have no complaints EKG Findings - EKG Comments: EKG Findings:: EKG shows paced rhythm rate of 72, QRS 176, QTc 529 Medical Decision Making - Medical Decision Making 82 female at the ER EMS status post fall questionable left hip fracture, x-ray negative for fracture patient does have positive urinary tract infection will treat with urinary antibiotics and patient can be discharged - Radiology Data Radiology results: report reviewed (X-ray left hip negative for fracture), image reviewed Disposition Clinical Impression: Fall, Contusion, hip, UTI (urinary tract infection) Disposition: HOME SELF-CARE Condition: Good Instructions: Fall Prevention for Older Adults (ED), Urinary Tract Infection in Women (ED) Prescriptions: Nitrofurantoin Monohyd/M-Cryst [Macrobid] 100 mg PO Q12HR #10 cap Referrals: Kristin Hernandez MD [Primary Care Provider] - 1-2 days
--- NOTE | 2017-04-11 12:51 | XR ---
EXAMINATION TYPE: XR chest 1V DATE OF EXAM: 04/11/2017 HISTORY: Pain. REFERENCE: Previous study dated 03/26/2017. FINDINGS: There has been a midline sternotomy. There is a multilead pacing device in place on the lef t. The heart is enlarged. There are stable senescent changes throughout the lungs. There is no evidence of pneumonia or edema. IMPRESSION: CARDIOMEGALY.
--- NOTE | 2017-04-11 12:52 | XR ---
EXAMINATION TYPE: XR Hip LT and AP Pelvis DATE OF EXAM: 04/11/2017 CLINICAL HISTORY: pain TECHNIQUE: AP and frogleg views of the left hip are obtained. COMPARISON: None. FINDINGS: There is no acute fracture/dislocation evident. The joint space appears within normal li mits. The overlying soft tissue appears unremarkable. IMPRESSION: 1. There is no acute fracture or dislocation.ICD 10 NO FRACTURE, INITIAL EVALUATION EXAMINATION TYPE : XR Hip LT and AP Pelvis DATE OF EXAM: 04/11/2017 CLINICAL HISTORY: pain TECHNIQUE: Single view the pelvis is submitted. FINDINGS: No evidence for fracture, dislocation or bony lesion. Joint spaces are well-preserved. S I joints appear symmetric. IMPRESSION: 1. No acute fracture or dislocation seen. ICD 10 NO FRACTURE, INITIAL EVALUATION
[2017-04-11] MEDS ORDERED: NITROFURANTOIN MONOHYD/M-CRYST 100 MG CAP PO STA (13:18)
[2017-04-11 14:08] VITALS: BP 115/64; PULSE 82; RESP 18; TEMP 98.2
== END 2017-04-11 14:25 | disposition home or self-care (01) ==
LOC: EC 11:17
DX: S70.02XA Contusion of left hip, initial encounter (principal); N39.0 Urinary tract infection, site not specified; E07.9 Disorder of thyroid, unspecified; E78.5 Hyperlipidemia, unspecified; I25.10 Atherosclerotic heart disease of native coronary artery without angina pectoris; I48.91 Unspecified atrial fibrillation; I11.0 Hypertensive heart disease with heart failure; I50.9 Heart failure, unspecified; Z86.718 Personal history of other venous thrombosis and embolism; Z86.711 Personal history of pulmonary embolism; Z86.73 Personal history of transient ischemic attack (TIA), and cerebral infarction without residual deficits; Z86.14 Personal history of Methicillin resistant Staphylococcus aureus infection; Z85.3 Personal history of malignant neoplasm of breast; F03.90 Unspecified dementia, unspecified severity, without behavioral disturbance, psychotic disturbance, mood disturbance, and anxiety; Z79.01 Long term (current) use of anticoagulants; Z79.82 Long term (current) use of aspirin; Z79.899 Other long term (current) drug therapy; Z88.1 Allergy status to other antibiotic agents; Z88.2 Allergy status to sulfonamides; Z88.8 Allergy status to other drugs, medicaments and biological substances; W19.XXXA Unspecified fall, initial encounter; Y92.009 Unspecified place in unspecified non-institutional (private) residence as the place of occurrence of the external cause
CPT/HCPCS: 71010; 73502; 93005; 99284

== ENCOUNTER 2017-04-18 13:34 | Inpatient (IN) | payer MEDICARE ==
[2017-04-18] MEDS ORDERED: ALBUTEROL NEBULIZED 2.5 MG/3 ML INHALATION PRN (20:45)
[2017-04-18] MEDS ORDERED: POLYETHYLENE GLYCOL 3350 17 GM POWD.PACK PO PRN (20:45)
[2017-04-18 21:03] LABS: Glucose,Whole Blood 147 mg/dL (75-99)
[2017-04-18] MEDS ORDERED: IV VANCOMYCIN PER PHARMACY 1 EACH MISC MISCELLANE PRN (21:08)
[2017-04-18] MEDS: CARVEDILOL 6.25 MG TAB PO SCH (21:29)
[2017-04-18] MEDS ORDERED: VANCOMYCIN 1,250 MG in SODIUM CHLORIDE 0.9% 250 ML IVPB ONE (21:30)
[2017-04-18] MEDS: ATORVASTATIN 20 MG TAB PO SCH (21:43)
[2017-04-19] MEDS: LEVOTHYROXINE 75 MCG TAB PO SCH (05:59)
[2017-04-19] MEDS: CARVEDILOL 6.25 MG TAB PO SCH ×2 (07:43→21:13)
[2017-04-19] MEDS: ASPIRIN 81 MG CHEW PO SCH (07:43)
[2017-04-19] MEDS: FERROUS SULFATE 325 MG TAB PO SCH (07:43)
[2017-04-19] MEDS: FUROSEMIDE 40 MG TAB PO SCH (07:44)
[2017-04-19] MEDS: POTASSIUM CHLORIDE ER 10 MEQ TAB.ER.PRT PO SCH (07:44)
[2017-04-19] MEDS: LACTULOSE 20 GM/30 ML CUP PO SCH (07:44)
[2017-04-19 08:00] LABS: INR 2.1 (<1.2); Prothrombin Time 20.3 sec (9.0-12.0)
[2017-04-19 08:20] LABS: Basophils % (A) 1 %; CH 29.3; CHCM 29.5; Eosinophils # (A) 0.3 k/uL (0-0.7); Eosinophils % (A) 5 %; HCT 29.4 % (34.0-46.0); HDW 2.56; Hypochromasia Marked; Luc # (Auto) 0.09; Luc % (Auto) 2; Lymphocytes # (A) 0.5 k/uL (1.0-4.8); Lymphocytes % (A) 9 %; MCH 30.7 pg (25.0-35.0); MCHC 30.8 g/dL (31.0-37.0); MCV 99.7 fL (80.0-100.0); Macrocytosis Slight; Mean Platelet Volume 7.9; Monocytes # (A) 0.5 k/uL (0-1.0); Monocytes % (A) 10 %; Neutrophils # (A) 4.1 k/uL (1.3-7.7); Neutrophils % (A) 74 %; RBC 2.95 m/uL (3.80-5.40); RDW 15.2 % (11.5-15.5); WBC 5.5 k/uL (3.8-10.6)
[2017-04-19 08:35] LABS: Calcium 8.7 mg/dL (8.4-10.2); Potassium 3.9 mmol/L (3.5-5.1); Total Bilirubin 1.9 mg/dL (0.2-1.3); Total Protein 5.5 g/dL (6.3-8.2)
[2017-04-19] MEDS ORDERED: NON-FORMULARY DRUG (Methenamine Hippurate [Hiprex] 1 GM) PO SCH (09:00)
[2017-04-19] MEDS: traMADol 50 MG TAB PO PRN (12:49)
[2017-04-19] MEDS: VANCOMYCIN 1,000 MG in SODIUM CHLORIDE 0.9% 250 ML IVPB SCH (13:07)
[2017-04-19] MEDS: MORPHINE SULFATE 2 MG/ML SYRINGE IVP PRN ×2 (13:07→16:00)
[2017-04-19 13:38] VITALS: BMI 23.5
[2017-04-19] MEDS: COLLAGENASE 250 UNIT/GM OINTMENT 30 GM TUBE TOPICAL SCH (15:09)
--- NOTE | 2017-04-19 15:24 | P.HPIM ---
History of Present Illness H&P Date: 04/19/17 Chief Complaint: Worsening right lower extremity swelling and ulceration This is a 82-year-old female with past medical history noted below significant for underlying cognitive impairment and chronic peripheral vascular occlusive diseasevenous insufficiency who was admitted directly to the hospital from the wound care clinic. Patient usually follow-up closely at the wound care clinic regarding chronic ulceration involving the right lower extremities both on the anterior and posterior aspect above the ankle and in the calf area. Yesterday patient was evaluated and was found to have worsening drainage and redness of the right lower extremity. Patient lives by herself in an assisted living and typically is unable to care for herself. She was admitted that included to the hospital for IV antibiotic and further evaluation. She is doing fairly well today. She is having a lot of pain. She said that her pain in the right lower extremity is 10 out of 10. On exam her right lower extremity is swollen and red. There is erythema extending from above the ankle all the way up to the knee. There is multiple open sores with serosanguineous and minimally purulent drainage noted. right lower extremity is very tender to palpation. There is some warmth to touch as well. Left lower extremity with evidence of venous insufficiency and chronic eczematous changes Review of Systems Review of system: 14 points review of systems were obtained and were negative except to what were mentioned in the HPI. Past Medical History Past Medical History: Atrial Fibrillation, Coronary Artery Disease (CAD), Cancer , Chest Pain / Angina, Heart Failure, Dementia, Deep Vein Thrombosis (DVT), Hyperlipidemia, Memory Impairment, Pulmonary Embolus (PE), Syncope, Thyroid Disorder Additional Past Medical History / Comment(s): Questionable TIA , SEVERAL UTI'S (ECOLI) MEMORY GETTING WORSE PER DAUGHTER HAS DEMENTIA. 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 Degenerative disc disease, INCONT OF BOTH URINE AND STOOL-WEARS DEPENDS. History of Any Multi-Drug Resistant Organisms: ESBL, MRSA Date of last positivie culture/infection: 11/25/16 ESBL E.coli/ 2013 ? WHEN AT [place](PER DAUGHTER) MDRO Source:: Urine/ LEGS Past Surgical History: AICD, Bladder Surgery, Breast Surgery, Coronary Bypass/ CABG, Heart Catheterization, Pacemaker Additional Past Surgical History / Comment(s): LEFT BREAST MASTECTOMY AT [facility]- NO CHEMO OR RADIATION, CABG AT [facility], PREVIOUSLY CHARTED PACEMAKER /AICD, left knee surgery. Past Anesthesia/Blood Transfusion Reactions: No Reported Reaction Type of Cardiac Device: Permanent Pacemaker, AICD Device Placement Date:: APPROX 5-6 YRS AGO Smoking Status: Never smoker - Past Family History Father Family Medical History: No Reported History Additional Family Medical History / Comment(s): ALCOHOLIC Mother Family Medical History: Congestive Heart Failure (CHF), CVA/TIA, Dementia Medications and Allergies Home Medications Medication Instructions Recorded Confirmed Type Levothyroxine Sodium [Synthroid] 150 mcg PO DAILY 03/25/16 04/18/17 History Polyethylene Glycol 3350 [Miralax] 17 gm PO DAILY PRN 03/25/16 04/18/17 History Lisinopril [Zestril] 5 mg PO DAILY 07/11/16 04/18/17 History Potassium Chloride [Klor-Con 10] 10 meq PO DAILY 07/11/16 04/18/17 History Carvedilol [Coreg] 6.25 mg PO BID@0800,209911/24/16 04/18/17 History Ferrous Sulfate [Feosol] 325 mg PO DAILY 11/24/16 04/18/17 History Simvastatin [Zocor] 40 mg PO HS@209911/24/16 04/18/17 History Warfarin [Coumadin] 2 mg PO HS@209911/24/16 04/18/17 History Aspirin 81 mg PO DAILY 03/21/17 04/18/17 History Methenamine Hippurate [Hiprex] 1 gm PO DAILY 03/21/17 04/18/17 History Albuterol Sulfate [Proair Hfa] 2 puff INHALATION RT-Q6H PRN 03/26/17 04/18/17 History traMADol HCL [Ultram] 50 mg PO Q6H PRN 03/26/17 04/18/17 History Furosemide [Lasix] 40 mg PO DAILY 04/11/17 04/18/17 History Lactulose 10 gm PO DAILY 04/11/17 04/18/17 History Allergies Allergy/AdvReac Type Severity Reaction Status Date / Time ciprofloxacin [From Cipro] Allergy Unknown Verified 04/18/17 15:52 lisinopril Allergy Unknown Verified 04/18/17 15:52 Sulfa (Sulfonamide Allergy Unknown Verified 04/18/17 15:52 Antibiotics) Physical Exam Vitals: Vital Signs Temp Pulse Resp BP BP Pulse Ox 04/19/17 08:00 73 16 04/19/17 07:00 97.1 F L 73 16 102/61 96 04/18/17 23:00 98.3 F 84 16 114/56 98 04/18/17 15:54 97.6 F 70 16 122/62 98 Intake and Output 04/19/17 04/19/17 04/19/17 06:59 14:59 22:59 Other: Voiding Method Toilet Toilet # Voids 1 1 Weight 66 kg 66 kg Patient Weight 04/20/17 06:59 Weight 66 kg General: The patient is awake and alert, in no distress Eye: there is normal conjunctiva bilaterally. Neck: The neck is supple, there is no JVD. Cardiovascular: Normal S1-S2, no S3-S4, no murmurs. Respiratory: Lungs clear to auscultation bilaterally Gastrointestinal: Abdomen is soft, nontender Neurological:. Speech is normal. Skin: Skin is warm and dry. Lower extremity exam as above in HPI Results CBC & Chem 7: 04/19/17 06:58 04/19/17 06:58 Labs: Abnormal Lab Results - Last 24 Hours (Table) 04/18/17 04/19/17 04/19/17 Range/Units 20:56 06:58 06:58 RBC 2.95 L (3.80-5.40) m/uL Hgb 9.0 L D (11.4-16.0) gm/dL Hct 29.4 L (34.0-46.0) % MCHC 30.8 L (31.0-37.0) g/dL Plt Count 116 L (150-450) k/uL Lymphocytes # 0.5 L (1.0-4.8) k/uL PT 20.3 H (9.0-12.0) sec INR 2.1 H (<1.2) Chloride (98-107) mmol/L BUN (7-17) mg/dL Creatinine (0.52-1.04) mg/dL Glucose (74-99) mg/dL POC Glucose (mg/dL) 147 H (75-99) mg/dL Total Bilirubin (0.2-1.3) mg/dL Total Protein (6.3-8.2) g/dL Albumin (3.5-5.0) g/dL 04/19/17 Range/Units 06:58 RBC (3.80-5.40) m/uL Hgb (11.4-16.0) gm/dL Hct (34.0-46.0) % MCHC (31.0-37.0) g/dL Plt Count (150-450) k/uL Lymphocytes # (1.0-4.8) k/uL PT (9.0-12.0) sec INR (<1.2) Chloride 109 H (98-107) mmol/L BUN 43 H (7-17) mg/dL Creatinine 1.26 H (0.52-1.04) mg/dL Glucose 126 H (74-99) mg/dL POC Glucose (mg/dL) (75-99) mg/dL Total Bilirubin 1.9 H (0.2-1.3) mg/dL Total Protein 5.5 L (6.3-8.2) g/dL Albumin 2.7 L (3.5-5.0) g/dL Thrombosis Risk Factor Assmnt - Choose All That Apply Any of the Below Risk Factors Present?: Yes Each Factor Represents 1 point: Swollen legs (current) Other Risk Factors: Yes Each Risk Factor Represents 3 Points: Age 75 years or older Thrombosis Risk Factor Assessment Total Risk Factor Score: 4 Thrombosis Risk Factor Assessment Level: Moderate Risk Assessment and Plan Plan: 1. Cellulitis of the right lower extremity with multiple open sores 2. Chronic venous insufficiency 3. Peripheral vascular occlusive disease 4. Underlying cognitive impairment 5. Chronic ischemic cardiomyopathy with underlying systolic heart failure and ejection fraction of 20% 6. Coronary artery disease with prior CABG and stent placement 7. Chronic atrial fibrillation on anticoagulation with Coumadin will continue to monitor INR daily Patient is currently on IV vancomycin. I will consult infectious disease. Awaiting vascular surgery evaluation. Continue leg elevation in the meantime. PT/OT evaluation. utility worker production consulted for possible placement at ECF.
--- NOTE | 2017-04-19 15:58 | P.GSCN ---
History of Present Illness Consult date: 04/19/17 Reason for Consult: Cellulitis, treatment recommendations. Requesting physician: Puma Alvares History of present illness: This 82-year-old female was sent to the hospital from the wound care center for lower extremity cellulitis in order to facilitate better healing of her lower extremity wounds. Apparently she has been followed in the wound care center for some time however she remains noncompliant with office visits, leg elevation , and wound therapies. She has been admitted for IV antibiotics and closer monitoring of compliance. Dr. Kay was consulted as he is familiar with her care and treats her in the wound care center. Review of Systems 14 point review systems was completed was negative except as noted. - Integumentary Reports as per HPI Past Medical History Past Medical History: Atrial Fibrillation, Coronary Artery Disease (CAD), Cancer , Chest Pain / Angina, Heart Failure, Dementia, Deep Vein Thrombosis (DVT), Hyperlipidemia, Memory Impairment, Pulmonary Embolus (PE), Syncope, Thyroid Disorder Additional Past Medical History / Comment(s): Questionable TIA , SEVERAL UTI'S (ECOLI) MEMORY GETTING WORSE PER DAUGHTER HAS DEMENTIA. 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 Degenerative disc disease, INCONT OF BOTH URINE AND STOOL-WEARS DEPENDS. History of Any Multi-Drug Resistant Organisms: ESBL, MRSA Year Discovered:: 11/25/16 ESBL E.coli/ 2012 ? WHEN AT [facility](PER DAUGHTER) MDRO Source:: Urine/ LEGS Past Surgical History: AICD, Bladder Surgery, Breast Surgery, Coronary Bypass/ CABG, Heart Catheterization, Pacemaker Additional Past Surgical History / Comment(s): LEFT BREAST MASTECTOMY AT [facility]- NO CHEMO OR RADIATION, CABG AT [facility], PREVIOUSLY CHARTED PACEMAKER /AICD, left knee surgery. Past Anesthesia/Blood Transfusion Reactions: No Reported Reaction Type of Cardiac Device: Permanent Pacemaker, AICD Device Placement Date:: APPROX 5-6 YRS AGO Smoking Status: Never smoker - Past Family History Father Family Medical History: No Reported History Additional Family Medical History / Comment(s): ALCOHOLIC Mother Family Medical History: Congestive Heart Failure (CHF), CVA/TIA, Dementia Medications and Allergies Home Medications Medication Instructions Recorded Confirmed Type Levothyroxine Sodium [Synthroid] 150 mcg PO DAILY 03/25/16 04/18/17 History Polyethylene Glycol 3350 [Miralax] 17 gm PO DAILY PRN 03/25/16 04/18/17 History Lisinopril [Zestril] 5 mg PO DAILY 07/11/16 04/18/17 History Potassium Chloride [Klor-Con 10] 10 meq PO DAILY 07/11/16 04/18/17 History Carvedilol [Coreg] 6.25 mg PO BID@0800,209911/24/16 04/18/17 History Ferrous Sulfate [Feosol] 325 mg PO DAILY 11/24/16 04/18/17 History Simvastatin [Zocor] 40 mg PO HS@209911/24/16 04/18/17 History Warfarin [Coumadin] 2 mg PO HS@209911/24/16 04/18/17 History Aspirin 81 mg PO DAILY 03/21/17 04/18/17 History Methenamine Hippurate [Hiprex] 1 gm PO DAILY 03/21/17 04/18/17 History Albuterol Sulfate [Proair Hfa] 2 puff INHALATION RT-Q6H PRN 03/26/17 04/18/17 History traMADol HCL [Ultram] 50 mg PO Q6H PRN 03/26/17 04/18/17 History Furosemide [Lasix] 40 mg PO DAILY 04/11/17 04/18/17 History Lactulose 10 gm PO DAILY 04/11/17 04/18/17 History Allergies Allergy/AdvReac Type Severity Reaction Status Date / Time ciprofloxacin [From Cipro] Allergy Unknown Verified 04/18/17 15:52 lisinopril Allergy Unknown Verified 04/18/17 15:52 Sulfa (Sulfonamide Allergy Unknown Verified 04/18/17 15:52 Antibiotics) Surgical - Exam Vital Signs Temp Pulse Resp BP Pulse Ox 97.6 F 70 16 122/62 98 04/18/17 15:54 04/18/17 15:54 04/18/17 15:54 04/18/17 15:54 04/18/17 15:54 - General well developed, well nourished, no distress, no pain - Eyes PERRL, normal ocular movement - ENT no hearing loss - Neck no masses, no bruits, trachea midline - Respiratory normal expansion, normal respiratory effort, clear to auscultation - Cardiovascular Rhythm: regular Heart Sounds: normal: S1, S2 - Abdomen Abdomen: soft, non tender, bowel sounds - Genitourinary Deferred - Rectum Deferred - Integumentary Left lower extremity ulcerations present on the posterior side of her leg. Appear to be draining small amount of serous drainage. Bilateral lower extremity edema present, left greater than right. - Neurologic normal coordination, normal sensation - Psychiatric oriented to time, oriented to person, oriented to place, speech is normal Results - Labs 04/19/17 06:58 04/19/17 06:58 Abnormal Lab Results - Last 24 Hours (Table) 04/18/17 04/19/17 04/19/17 Range/Units 20:56 06:58 06:58 RBC 2.95 L (3.80-5.40) m/uL Hgb 9.0 L D (11.4-16.0) gm/dL Hct 29.4 L (34.0-46.0) % MCHC 30.8 L (31.0-37.0) g/dL Plt Count 116 L (150-450) k/uL Lymphocytes # 0.5 L (1.0-4.8) k/uL PT 20.3 H (9.0-12.0) sec INR 2.1 H (<1.2) Chloride (98-107) mmol/L BUN (7-17) mg/dL Creatinine (0.52-1.04) mg/dL Glucose (74-99) mg/dL POC Glucose (mg/dL) 147 H (75-99) mg/dL Total Bilirubin (0.2-1.3) mg/dL Total Protein (6.3-8.2) g/dL Albumin (3.5-5.0) g/dL 04/19/17 Range/Units 06:58 RBC (3.80-5.40) m/uL Hgb (11.4-16.0) gm/dL Hct (34.0-46.0) % MCHC (31.0-37.0) g/dL Plt Count (150-450) k/uL Lymphocytes # (1.0-4.8) k/uL PT (9.0-12.0) sec INR (<1.2) Chloride 109 H (98-107) mmol/L BUN 43 H (7-17) mg/dL Creatinine 1.26 H (0.52-1.04) mg/dL Glucose 126 H (74-99) mg/dL POC Glucose (mg/dL) (75-99) mg/dL Total Bilirubin 1.9 H (0.2-1.3) mg/dL Total Protein 5.5 L (6.3-8.2) g/dL Albumin 2.7 L (3.5-5.0) g/dL Diabetes panel 04/19/17 Range/Units 06:58 Sodium 141 (137-145) mmol/L Potassium 3.9 (3.5-5.1) mmol/L Chloride 109 H (98-107) mmol/L Carbon Dioxide 22 (22-30) mmol/L BUN 43 H (7-17) mg/dL Creatinine 1.26 H (0.52-1.04) mg/dL Glucose 126 H (74-99) mg/dL Calcium 8.7 (8.4-10.2) mg/dL AST 20 (14-36) U/L ALT 16 (9-52) U/L Alkaline Phosphatase 78 (38-126) U/L Total Protein 5.5 L (6.3-8.2) g/dL Albumin 2.7 L (3.5-5.0) g/dL Calcium panel 04/19/17 Range/Units 06:58 Calcium 8.7 (8.4-10.2) mg/dL Albumin 2.7 L (3.5-5.0) g/dL Pituitary panel 04/19/17 Range/Units 06:58 Sodium 141 (137-145) mmol/L Potassium 3.9 (3.5-5.1) mmol/L Chloride 109 H (98-107) mmol/L Carbon Dioxide 22 (22-30) mmol/L BUN 43 H (7-17) mg/dL Creatinine 1.26 H (0.52-1.04) mg/dL Glucose 126 H (74-99) mg/dL Calcium 8.7 (8.4-10.2) mg/dL Adrenal panel 04/19/17 Range/Units 06:58 Sodium 141 (137-145) mmol/L Potassium 3.9 (3.5-5.1) mmol/L Chloride 109 H (98-107) mmol/L Carbon Dioxide 22 (22-30) mmol/L BUN 43 H (7-17) mg/dL Creatinine 1.26 H (0.52-1.04) mg/dL Glucose 126 H (74-99) mg/dL Calcium 8.7 (8.4-10.2) mg/dL Total Bilirubin 1.9 H (0.2-1.3) mg/dL AST 20 (14-36) U/L ALT 16 (9-52) U/L Alkaline Phosphatase 78 (38-126) U/L Total Protein 5.5 L (6.3-8.2) g/dL Albumin 2.7 L (3.5-5.0) g/dL Assessment and Plan (1) Venous stasis ulcer of left lower extremity Status: Acute (2) Dementia Status: Acute (3) High risk for readmission Status: Acute Plan: The patient was seen and examined. Chart/diagnostics reviewed. Infectious disease consult placed. Continue IV antibiotics per infectious disease recommendations. Santyl ordered and applied. Tera wraps applied to bilateral lower extremities with elevation above the heart. Patient instructed on the importance of compliance with therapy, lower extremity elevation. Case discussed with Dr. Kay. More recommendations as patient progresses. Dr. Alvares for this consult. We look forward to review the care of your patient. Time with Patient: Greater than 30
[2017-04-19] MEDS: WARFARIN 2 MG TAB PO SCH (17:23)
[2017-04-19] MEDS: ATORVASTATIN 20 MG TAB PO SCH (21:01)
[2017-04-20] MEDS: traMADol 50 MG TAB PO PRN ×3 (01:15→17:50)
[2017-04-20] MEDS: LEVOTHYROXINE 75 MCG TAB PO SCH (06:16)
[2017-04-20] MEDS: FERROUS SULFATE 325 MG TAB PO SCH (07:24)
[2017-04-20] MEDS: LACTULOSE 20 GM/30 ML CUP PO SCH (07:24)
[2017-04-20] MEDS: CARVEDILOL 6.25 MG TAB PO SCH ×2 (07:24→21:08)
[2017-04-20] MEDS: ASPIRIN 81 MG CHEW PO SCH (07:24)
[2017-04-20] MEDS: FUROSEMIDE 40 MG TAB PO SCH (07:25)
[2017-04-20] MEDS: VANCOMYCIN 1,000 MG in SODIUM CHLORIDE 0.9% 250 ML IVPB SCH (08:33)
[2017-04-20] MEDS: POTASSIUM CHLORIDE ER 10 MEQ TAB.ER.PRT PO SCH (08:33)
[2017-04-20 08:53] LABS: Basophils # (A) 0.1 k/uL (0-0.2); Basophils % (A) 1 %; CH 29.4; CHCM 29.5; Eosinophils # (A) 0.4 k/uL (0-0.7); Eosinophils % (A) 5 %; HCT 32.5 % (34.0-46.0); HDW 2.54; HGB 9.8 gm/dL (11.4-16.0); Hypochromasia Marked; Luc # (Auto) 0.14; Luc % (Auto) 2; Lymphocytes # (A) 0.7 k/uL (1.0-4.8); Lymphocytes % (A) 11 %; MCH 30.3 pg (25.0-35.0); MCHC 30.3 g/dL (31.0-37.0); MCV 99.9 fL (80.0-100.0); Macrocytosis Slight; Mean Platelet Volume 8.2; Monocytes # (A) 0.6 k/uL (0-1.0); Monocytes % (A) 9 %; Neutrophils # (A) 4.9 k/uL (1.3-7.7); Neutrophils % (A) 72 %; RBC 3.25 m/uL (3.80-5.40); RDW 15.1 % (11.5-15.5); WBC 6.7 k/uL (3.8-10.6); WBC (Perox) 6.82
[2017-04-20 08:56] LABS: INR 1.7 (<1.2); Prothrombin Time 16.8 sec (9.0-12.0)
[2017-04-20 09:16] LABS: Potassium 4.4 mmol/L (3.5-5.1)
--- NOTE | 2017-04-20 11:13 | CONS ---
DATE OF CONSULTATION: 04/19/2017 REASON FOR CONSULTATION: Lower extremity wound and cellulitis. HISTORY OF PRESENT ILLNESS: The patient is an 82 -year-old female with past medical history significant for chronic venous stasis ulcer to the left lower extremity for which the patient used to follow with us in [facility], however, seems to have recently switched her services to [facility] wound care center and being followed by Dr. Kay. The patient has been admitted directly to the hospital from the wound care clinic with concern for the worsening swelling and redness to the left leg. The patient has been complaining of some pain in the leg, the pain described to be dull, aching, 3 to 4 out of 10 and no radiation. The patient did have wounds with minimal drainage. The patient denies any high grade fever or chills though. The patient denies significant chest pain, shortness of breath, cough, abdominal pain or diarrhea. coronary artery disease has been brought into the ER at [facility] 04/17/2017 with chief complaint of abdominal pain. The pain has been in the lower abdominal area described to be more diffuse, sharp, 7 to 8 out of 10 and no radiation. The patient did have ( ) nausea and vomiting with it. The patient also had REVIEW OF SYSTEMS: Constitutional: Positive for weakness. No high grade fever. Eyes: No complaint. ENT: No complaint. Respiratory: No complaint. Cardiovascular: No complaint. : No complaint. Gastrointestinal: No complaint. Musculoskeletal: No complaint. Integumentary: As per history of present illness. Psychological: No complaint. Endocrine: No complaint. Neurological: No complaint. Past medical history significant for coronary artery disease, atrial fibrillation, heart failure with dementia, DVT, hyperlipidemia, memory impairment, pulmonary embolism and hypothyroidism. Previous history of E coli ESBL MRSA Infection. Past surgical history: AICD placement, ( ) surgery, coronary artery bypass grafting, heart catheterization, pacemaker placement, ( ) mastectomy. SOCIAL HISTORY: No history of smoking, drinking or drug use. FAMILY HISTORY: Father with history of alcoholism. Mother with history of dementia, CVA/TIA. ALLERGIES: CIPROFLOXACIN, LISINOPRIL AND SULFA. On examination, blood pressure is 107/54 with a pulse of 70. Temperature 96.9. She is 99% on room air. General description is an elderly female lying in bed in no distress. No tachypnea or accessory muscles of respiration use. HEENT: Examination shows pallor and no sclera icterus. Oral mucosa membranes dry. NECK: Trachea is central. No JVD. No thyromegaly. LUNGS: Unlabored breathing. Clear to auscultation anteriorly. HEART: S1, S2 regular rate and rhythm. ABDOMEN: Soft. No tenderness. No guarding. No rigidity. EXTREMITIES: Left lower extremity revealed some superficial ulceration with wound on the medial side mostly with slough tissue. Some surrounding erythema, minimal drainage. NEUROLOGICALLY: The patient is awake, alert and oriented times two. Mood and affect normal. LABS: Hemoglobin 9, white count 5.5, BUN 43, creatinine 1.26. No cultures has been obtained. DIAGNOSTIC IMPRESSION AND PLAN: 1. The patient with left lower extremity venous stasis ulcer with secondary cellulitis with chronic nonhealing wound, the likely organism ( ) gram positive ( ) adriane especially the staff including both MRSA and MSSA. 2. The patient does have MULTIPLE ANTIBIOTIC ALLERGIES that does limit the number of antibiotics that can be safely used. PLAN: 1. We will obtain wound cultures to guide antibiotic therapy. 2. The patient to continue on Vancomycin, pharmacy to dose, target of 15. 3. We will apply Aquacel silver to the wound with no slough and Santyl to the wound with the slough tissue. 4. We will follow-up on the clinical condition and cultures to further adjust medication if needed. Thank you for this consultation. We will follow this patient along with you. FABIÁN
--- NOTE | 2017-04-20 13:26 | P.PN ---
Subjective Patient is doing well today. Both legs are wrapped with Bridger dressing and Tera wrap. Objective - Vital Signs Vital signs: Vital Signs Temp 97.3 F L 04/20/17 07:00 Pulse 77 04/20/17 07:00 Resp 18 04/20/17 07:00 BP 99/52 04/20/17 07:00 Pulse Ox 98 04/20/17 07:00 Intake & Output 04/19/17 04/20/17 04/20/17 18:59 06:59 18:59 Intake Total 490 1040 Balance 490 1040 Weight 66 kg 66.5 kg Intake: Intake, IV Titration 250 Amount Vancomycin 1,000 mg In 250 Sodium Chloride 0.9% 250 ml @ 125 mls/hr IVPB DAILY [facility] Rx#:[id number] Oral 240 1040 Other: Voiding Method Toilet Toilet Toilet # Voids 3 1 - Exam General: The patient is awake and alert, in no distress Eye: there is normal conjunctiva bilaterally. Neck: The neck is supple, there is no JVD. Cardiovascular: Normal S1-S2, no S3-S4, no murmurs. Respiratory: Lungs clear to auscultation bilaterally Gastrointestinal: Abdomen is soft, nontender Neurological:. Speech is normal. Skin: Skin is warm and dry - Labs CBC & Chem 7: 04/20/17 07:54 04/20/17 07:54 Labs: Abnormal Lab Results - Last 24 Hours (Table) 04/20/17 04/20/17 04/20/17 Range/Units 07:54 07:54 07:54 RBC 3.25 L (3.80-5.40) m/uL Hgb 9.8 L (11.4-16.0) gm/dL Hct 32.5 L (34.0-46.0) % MCHC 30.3 L (31.0-37.0) g/dL Plt Count 135 L (150-450) k/uL Lymphocytes # 0.7 L (1.0-4.8) k/uL PT 16.8 H (9.0-12.0) sec INR 1.7 H (<1.2) BUN 43 H (7-17) mg/dL Creatinine 1.28 H (0.52-1.04) mg/dL Glucose 101 H (74-99) mg/dL Assessment and Plan Plan: 1. Cellulitis of the right lower extremity with multiple open sores 2. Chronic venous insufficiency 3. Peripheral vascular occlusive disease 4. Underlying cognitive impairment 5. Chronic ischemic cardiomyopathy with underlying systolic heart failure and ejection fraction of 20% 6. Coronary artery disease with prior CABG and stent placement 7. Chronic atrial fibrillation on anticoagulation with Coumadin will continue to monitor INR daily Patient is currently on IV vancomycin. Awaiting infectious disease evaluation. vascular surgery following. Continue leg elevation in the meantime. PT/OT evaluation. farmworker consulted for possible placement at ECF.
[2017-04-20] MEDS: COLLAGENASE 250 UNIT/GM OINTMENT 30 GM TUBE TOPICAL SCH (13:33)
--- NOTE | 2017-04-20 16:30 | P.PN ---
Subjective Principal diagnosis: Left lower extremity wound and cellulitis. This 89-year-old female patient who has a past medical history for chronic venous stasis ulcers to her left lower extremity. She has been followed at the wound healing center by Dr. Kay and was admitted directly to the hospital for IV antibiotic treatment and further wound care to her left leg wounds as there was progression of the wound. She is laying in bed in no acute distress, she has a lower extremity is elevated higher than the level of her heart. She denies pain at this time. Objective - Vital Signs Vital signs: Vital Signs Temp 97.0 F L 04/20/17 15:00 Pulse 76 04/20/17 15:00 Resp 18 04/20/17 15:00 BP 107/58 04/20/17 15:00 Pulse Ox 97 04/20/17 15:00 Intake & Output 04/19/17 04/20/17 04/20/17 18:59 06:59 18:59 Intake Total 490 1040 250 Balance 490 1040 250 Weight 66 kg 66.5 kg Intake: Intake, IV Titration 250 250 Amount Vancomycin 1,000 mg In 250 250 Sodium Chloride 0.9% 250 ml @ 125 mls/hr IVPB DAILY [facility] Rx#:[id number] Oral 240 1040 Other: Voiding Method Toilet Toilet Toilet # Voids 3 1 3 # Bowel Movements 1 - Constitutional General appearance: Present: cooperative, no acute distress - EENT Eyes: Present: PERRLA, normal appearance ENT: Present: hearing grossly normal - Neck Details: No JVD. - Respiratory Details: Essentially clear throughout, diminished to her bilateral bases. Respirations are symmetrical and unlabored. Oxygen saturations are 97% on room air. - Cardiovascular Details: Irregular rhythm and controlled rate, normal S1 and S2, positive systolic murmur heard best to her right sternal border, second intercostal space. +2 edema to her bilateral lower extremity Tera. Tera wraps in placed to her bilateral lower extremities from her toes to her knees. - Gastrointestinal Gastrointestinal Comment(s): Abdomen is soft, nontender, and nondistended. Positive bowel sounds all 4 abdominal quadrants. She is tolerating a diet. - Genitourinary Genitourinary Comment(s): Adequate urine output. - Integumentary Integumentary Comment(s): Left lower extremity ulcerations present to her anterior and posterior leg. Dressing was changed by gabriel Gallegos RN today. - Musculoskeletal Musculoskeletal: Present: gait normal (Uses a wheeled walker when ambulating.), generalized weakness - Psychiatric Psychiatric Comment(s): Her speech is clear. Psychiatric: Present: A&O x's 3, appropriate affect - Allied health notes Allied health notes reviewed: nursing - Labs CBC & Chem 7: 04/20/17 07:54 04/20/17 07:54 Labs: Abnormal Lab Results - Last 24 Hours (Table) 04/20/17 04/20/17 04/20/17 Range/Units 07:54 07:54 07:54 RBC 3.25 L (3.80-5.40) m/uL Hgb 9.8 L (11.4-16.0) gm/dL Hct 32.5 L (34.0-46.0) % MCHC 30.3 L (31.0-37.0) g/dL Plt Count 135 L (150-450) k/uL Lymphocytes # 0.7 L (1.0-4.8) k/uL PT 16.8 H (9.0-12.0) sec INR 1.7 H (<1.2) BUN 43 H (7-17) mg/dL Creatinine 1.28 H (0.52-1.04) mg/dL Glucose 101 H (74-99) mg/dL Assessment and Plan (1) Venous stasis ulcer of left lower extremity Status: Acute (2) Dementia Status: Acute (3) History of chronic atrial fibrillation Status: Acute (4) History of coronary artery disease Status: Acute (5) History of deep vein thrombosis Status: Acute Plan: 1. Continue Santyl and Aquasol silver dressing changes with gentle Tera wraps to her bilateral lower extremities as ordered. Neck 2. IV antibiotic management per Dr. Erickson from infectious disease. 3. Follow-up in the wound healing center as scheduled. 4. When not ambulating or sitting up for meals she is to have her legs elevated higher than the level of her heart and bed. 5. Further recommendations as patient progresses. Time with Patient: Greater than 30
[2017-04-20] MEDS: WARFARIN 2 MG TAB PO SCH (17:51)
--- NOTE | 2017-04-20 20:05 | PN ---
DATE OF SERVICE: 04/20/17 REASON FOR FOLLOW UP: Left lower extremity wound and cellulitis. INTERVAL HISTORY: The patient is afebrile. She is still complaining of some pain in the left leg area however she is improved compared from yesterday. Denies significant chest pain, no shortness of breath, occasional cough, no abdominal pain. On examination, blood pressure 107/58, pulse 76, temperature 97, she is 97% on room air. General description is an elderly female lying in bed in no distress. Respiratory system: Unlabored breathing. Clear to auscultation anteriorly. Heart: S1, S2 regular rate and rhythm. Abdomen soft, no tenderness. Legs are currently wrapped up. No obvious drainage on the dressing. LABS: Hemoglobin 9.1, white count 6.7. BUN 43, creatinine 1.28. DIAGNOSTIC IMPRESSION AND PLAN: Patient with left lower extremity with some secondary cellulitis. The patient seems to be responding to Vanco that will continue, local wound care with Santyl to the wound with soft tissue. Aquacel to the clean wound, followed by an leila wrap. Continue supportive care. FABIÁN
[2017-04-20] MEDS: ATORVASTATIN 20 MG TAB PO SCH (21:08)
[2017-04-21] MEDS: LEVOTHYROXINE 75 MCG TAB PO SCH (06:09)
[2017-04-21 07:06] LABS: Basophils # (A) 0.1 k/uL (0-0.2); Basophils % (A) 1 %; CH 29.4; Eosinophils # (A) 0.3 k/uL (0-0.7); Eosinophils % (A) 6 %; HCT 32.1 % (34.0-46.0); HDW 2.52; HGB 9.3 gm/dL (11.4-16.0); Hypochromasia Marked; Luc # (Auto) 0.18; Luc % (Auto) 3; Lymphocytes # (A) 0.6 k/uL (1.0-4.8); Lymphocytes % (A) 11 %; MCH 29.5 pg (25.0-35.0); MCV 101.8 fL (80.0-100.0); Macrocytosis Slight; Monocytes # (A) 0.4 k/uL (0-1.0); Monocytes % (A) 8 %; Neutrophils # (A) 3.8 k/uL (1.3-7.7); Neutrophils % (A) 70 %; RBC 3.15 m/uL (3.80-5.40); WBC 5.4 k/uL (3.8-10.6); WBC (Perox) 5.66
[2017-04-21 07:07] LABS: INR 1.6 (<1.2); Prothrombin Time 15.8 sec (9.0-12.0)
[2017-04-21 07:20] LABS: Calcium 9.3 mg/dL (8.4-10.2); Potassium 4.3 mmol/L (3.5-5.1)
[2017-04-21] MEDS: ASPIRIN 81 MG CHEW PO SCH (07:30)
[2017-04-21] MEDS: CARVEDILOL 6.25 MG TAB PO SCH ×2 (07:30→20:15)
[2017-04-21] MEDS: FUROSEMIDE 40 MG TAB PO SCH (07:31)
[2017-04-21] MEDS: LACTULOSE 20 GM/30 ML CUP PO SCH (07:31)
[2017-04-21] MEDS: POTASSIUM CHLORIDE ER 10 MEQ TAB.ER.PRT PO SCH (07:31)
[2017-04-21] MEDS: COLLAGENASE 250 UNIT/GM OINTMENT 30 GM TUBE TOPICAL SCH (07:31)
[2017-04-21] MEDS: FERROUS SULFATE 325 MG TAB PO SCH (07:31)
[2017-04-21] MEDS: MORPHINE SULFATE 2 MG/ML SYRINGE IVP PRN (09:40)
[2017-04-21] MEDS: VANCOMYCIN 1,000 MG in SODIUM CHLORIDE 0.9% 250 ML IVPB SCH (11:54)
--- NOTE | 2017-04-21 12:27 | P.PN ---
Subjective Patient is having increasing anxiety and occasionally extending her nose that she would like to leave the hospital. Objective - Vital Signs Vital signs: Vital Signs Temp 96.5 F L 04/21/17 07:00 Pulse 77 04/21/17 08:00 Resp 18 04/21/17 08:00 BP 108/76 04/21/17 07:00 Pulse Ox 97 04/21/17 07:00 Intake & Output 04/20/17 04/21/17 04/21/17 18:59 06:59 18:59 Intake Total 250 100 Balance 250 100 Weight 66.5 kg 73.5 kg Intake: Intake, IV Titration 250 Amount Vancomycin 1,000 mg In 250 Sodium Chloride 0.9% 250 ml @ 125 mls/hr IVPB DAILY [facility] Rx#:[id number] Oral 100 Other: Voiding Method Toilet Toilet Toilet # Voids 3 # Bowel Movements 1 - Exam General: The patient is awake and alert, in no distress Eye: there is normal conjunctiva bilaterally. Neck: The neck is supple, there is no JVD. Cardiovascular: Normal S1-S2, no S3-S4, no murmurs. Respiratory: Lungs clear to auscultation bilaterally Gastrointestinal: Abdomen is soft, nontender Neurological:. Speech is normal. Skin: Skin is warm and dry - Labs CBC & Chem 7: 04/21/17 06:38 04/21/17 06:38 Labs: Abnormal Lab Results - Last 24 Hours (Table) 04/21/17 04/21/17 04/21/17 Range/Units 06:38 06:38 06:38 RBC 3.15 L (3.80-5.40) m/uL Hgb 9.3 L (11.4-16.0) gm/dL Hct 32.1 L (34.0-46.0) % MCV 101.8 H (80.0-100.0) fL MCHC 29.0 L (31.0-37.0) g/dL Plt Count 126 L (150-450) k/uL Lymphocytes # 0.6 L (1.0-4.8) k/uL PT 15.8 H (9.0-12.0) sec INR 1.6 H (<1.2) BUN 45 H (7-17) mg/dL Creatinine 1.31 H (0.52-1.04) mg/dL Glucose 108 H (74-99) mg/dL Assessment and Plan Plan: 1. Cellulitis of the right lower extremity with multiple open sores 2. Chronic venous insufficiency 3. Peripheral vascular occlusive disease 4. Underlying cognitive impairment 5. Chronic ischemic cardiomyopathy with underlying systolic heart failure and ejection fraction of 20% 6. Coronary artery disease with prior CABG and stent placement 7. Chronic atrial fibrillation on anticoagulation with Coumadin will continue to monitor INR daily Patient is currently on IV vancomycin. Awaiting infectious disease evaluation. vascular surgery following. Continue leg elevation in the meantime. PT/OT evaluation. ax survey worker consulted for possible placement at [facility].
[2017-04-21] MEDS: DIAZEPAM 5 MG TAB PO PRN (12:51)
[2017-04-21] MEDS: WARFARIN 2 MG TAB PO SCH (17:56)
[2017-04-21] MEDS: ATORVASTATIN 20 MG TAB PO SCH (20:15)
[2017-04-22] MEDS: LEVOTHYROXINE 75 MCG TAB PO SCH (06:19)
[2017-04-22] MEDS: COLLAGENASE 250 UNIT/GM OINTMENT 30 GM TUBE TOPICAL SCH (07:28)
[2017-04-22] MEDS: ASPIRIN 81 MG CHEW PO SCH (07:31)
[2017-04-22] MEDS: CARVEDILOL 6.25 MG TAB PO SCH ×2 (07:31→22:02)
[2017-04-22] MEDS: FERROUS SULFATE 325 MG TAB PO SCH (07:31)
[2017-04-22] MEDS: POTASSIUM CHLORIDE ER 10 MEQ TAB.ER.PRT PO SCH (07:31)
[2017-04-22] MEDS: FUROSEMIDE 40 MG TAB PO SCH (07:31)
[2017-04-22] MEDS: LACTULOSE 20 GM/30 ML CUP PO SCH (07:32)
[2017-04-22] MEDS: VANCOMYCIN 1,000 MG in SODIUM CHLORIDE 0.9% 250 ML IVPB SCH (07:35)
[2017-04-22] MEDS ORDERED: VANCOMYCIN TROUGH DUE 1 EACH MISC MISCELLANE ONE (08:00)
[2017-04-22 08:26] LABS: Basophils % (A) 1 %; CH 29.8; CHCM 29.7; Eosinophils # (A) 0.3 k/uL (0-0.7); Eosinophils % (A) 7 %; HCT 32.4 % (34.0-46.0); HDW 2.51; HGB 9.7 gm/dL (11.4-16.0); Hypochromasia Marked; Luc # (Auto) 0.08; Luc % (Auto) 2; Lymphocytes # (A) 0.6 k/uL (1.0-4.8); Lymphocytes % (A) 13 %; MCH 30.2 pg (25.0-35.0); MCHC 29.9 g/dL (31.0-37.0); MCV 100.9 fL (80.0-100.0); Macrocytosis Slight; Mean Platelet Volume 8.5; Monocytes # (A) 0.4 k/uL (0-1.0); Monocytes % (A) 8 %; Neutrophils # (A) 3.2 k/uL (1.3-7.7); Neutrophils % (A) 70 %; RBC 3.21 m/uL (3.80-5.40); RDW 15.5 % (11.5-15.5); WBC 4.6 k/uL (3.8-10.6); WBC (Perox) 5.11
[2017-04-22 08:30] LABS: INR 1.6 (<1.2); Prothrombin Time 15.1 sec (9.0-12.0)
[2017-04-22 09:14] LABS: Calcium 9.4 mg/dL (8.4-10.2); Potassium 4.2 mmol/L (3.5-5.1)
--- NOTE | 2017-04-22 11:45 | P.PN ---
Subjective Principal diagnosis: Left lower extremity wound and cellulitis. Dementia. Chronic atrial fibrillation. Coronary artery disease. History of DVT. Patient's currently sitting in bed without her legs elevated. Very angry, states she doesn't want our help, she doesn't want our care, and when given the explanation that I was here to change her dressings she said not to bother because she was just going to take them off anyways. Objective - Vital Signs Vital signs: Vital Signs Temp 98.1 F 04/22/17 07:00 Pulse 78 04/22/17 07:25 Resp 18 04/22/17 07:25 BP 106/61 04/22/17 07:00 Pulse Ox 97 04/22/17 07:00 Intake & Output 04/21/17 04/22/17 04/22/17 18:59 06:59 18:59 Intake Total 120 120 Balance 120 120 Weight 64.5 kg Intake: Oral 120 120 Other: Voiding Method Toilet Bedside Commode Bedside Commode Diaper Diaper Incontinent Incontinent # Voids 1 1 2 - Constitutional General appearance: Present: no acute distress - Respiratory Details: On sounds diminished bilaterally. Respirations even, nonlabored. Currently on room air with oxygen saturation - Cardiovascular Details: S1, S2 present. Irregular rate and rhythm. Edema to bilateral lower extremities decreased from prior. - Gastrointestinal Gastrointestinal Comment(s): Abdomen soft, nontender, nondistended. Active bowel sounds 4 quadrants. - Genitourinary Genitourinary Comment(s): Continues to void clear, yellow urine. - Musculoskeletal Musculoskeletal: Present: strength equal bilaterally - Psychiatric Psychiatric Comment(s): She currently very angry, attempting to refuse care. - Allied health notes Allied health notes reviewed: nursing - Labs CBC & Chem 7: 04/22/17 08:03 04/22/17 08:03 Labs: Abnormal Lab Results - Last 24 Hours (Table) 04/22/17 04/22/17 04/22/17 Range/Units 08:03 08:03 08:03 RBC 3.21 L (3.80-5.40) m/uL Hgb 9.7 L (11.4-16.0) gm/dL Hct 32.4 L (34.0-46.0) % MCV 100.9 H (80.0-100.0) fL MCHC 29.9 L (31.0-37.0) g/dL Plt Count 138 L (150-450) k/uL Lymphocytes # 0.6 L (1.0-4.8) k/uL PT 15.1 H (9.0-12.0) sec INR 1.6 H (<1.2) BUN 47 H (7-17) mg/dL Creatinine 1.29 H (0.52-1.04) mg/dL Glucose 106 H (74-99) mg/dL Assessment and Plan (1) Venous stasis ulcer of left lower extremity Status: Acute (2) Dementia Status: Acute (3) High risk for readmission Status: Acute Plan: 1. Continue dressing changes as ordered with gentle Tera wraps to bilateral lower extremities. 2. When not ambulating or sitting up or meals patient should have her legs elevated higher the level of her heart. 3. Antibiotic management per infectious disease. 4. Follow-up in the wound care center weekly as scheduled 5. Medical management per primary care service. 6. Will see as needed. Please call us with any concerns. Time with Patient: Greater than 30
--- NOTE | 2017-04-22 15:09 | PN ---
DATE OF SERVICE: 04/21/2017 REASON FOR FOLLOW UP: Left lower extremity venous stasis ulcer and cellulitis. INTERVAL HISTORY: The patient is afebrile. She is feeling better, breathing comfortably. The patient's pain and swelling to the left leg has improved, overall swelling has decreased. Patient denied significant chest pain or shortness of breath. No vomiting or diarrhea. On examination blood pressure 107/65, pulse 84, temperature 96.5, she is 96% on room air. GENERAL DESCRIPTION: Elderly female lying in bed in no distress. RESPIRATORY: Unlabored breathing. Clear to auscultation anteriorly. HEART: S1/S2 regular. ABDOMEN: Soft without tenderness. Left leg overall swelling has improved. The wounds are clearing out and no significant slough tissue. LABS: Hemoglobin 9.3, white count 5.4. BUN 45, creatinine 1.31. DIAGNOSTIC IMPRESSION: Patient with left lower extremity venous stasis ulcer secondary to cellulitis, overall improving on the vancomycin. Local wound care to continue with Aquacel silver, discontinue the Santyl. If the patient continues to improve, will be finishing therapy with oral doxycycline. Continue supportive care.. MTDD
[2017-04-22] MEDS: WARFARIN 2 MG TAB PO SCH (17:52)
[2017-04-22] MEDS ORDERED: WARFARIN 2 MG TAB PO SCH (18:11)
--- NOTE | 2017-04-22 18:12 | P.PN ---
Subjective No issues overnight Objective - Vital Signs Vital signs: Vital Signs Temp 98.3 F 04/22/17 15:00 Pulse 78 04/22/17 16:00 Resp 18 04/22/17 16:00 BP 110/70 04/22/17 15:00 Pulse Ox 97 04/22/17 15:00 Intake & Output 04/21/17 04/22/17 04/22/17 18:59 06:59 18:59 Intake Total 120 120 240 Balance 120 120 240 Weight 64.5 kg Intake: Oral 120 120 240 Other: Voiding Method Toilet Bedside Commode Bedside Commode Diaper Diaper Incontinent Incontinent # Voids 1 1 3 - Exam General: The patient is awake and alert, in no distress Eye: there is normal conjunctiva bilaterally. Neck: The neck is supple, there is no JVD. Cardiovascular: Normal S1-S2, no S3-S4, no murmurs. Respiratory: Lungs clear to auscultation bilaterally Gastrointestinal: Abdomen is soft, nontender Neurological:. Speech is normal. Skin: Skin is warm and dry - Labs CBC & Chem 7: 04/22/17 08:03 04/22/17 08:03 Labs: Abnormal Lab Results - Last 24 Hours (Table) 04/22/17 04/22/17 04/22/17 Range/Units 08:03 08:03 08:03 RBC 3.21 L (3.80-5.40) m/uL Hgb 9.7 L (11.4-16.0) gm/dL Hct 32.4 L (34.0-46.0) % MCV 100.9 H (80.0-100.0) fL MCHC 29.9 L (31.0-37.0) g/dL Plt Count 138 L (150-450) k/uL Lymphocytes # 0.6 L (1.0-4.8) k/uL PT 15.1 H (9.0-12.0) sec INR 1.6 H (<1.2) BUN 47 H (7-17) mg/dL Creatinine 1.29 H (0.52-1.04) mg/dL Glucose 106 H (74-99) mg/dL Assessment and Plan Plan: 1. Cellulitis of the right lower extremity with multiple open sores 2. Chronic venous insufficiency 3. Peripheral vascular occlusive disease 4. Underlying cognitive impairment 5. Chronic ischemic cardiomyopathy with underlying systolic heart failure and ejection fraction of 20% 6. Coronary artery disease with prior CABG and stent placement 7. Chronic atrial fibrillation on anticoagulation with Coumadin will continue to monitor INR daily Patient is currently on IV vancomycin. Awaiting infectious disease evaluation. vascular surgery following. Continue leg elevation in the meantime. PT/OT evaluation. piece worker consulted for possible placement at ECF.
[2017-04-22] MEDS: DIAZEPAM 5 MG TAB PO PRN (22:02)
[2017-04-22] MEDS: ATORVASTATIN 20 MG TAB PO SCH (22:02)
[2017-04-23] MEDS: MORPHINE SULFATE 2 MG/ML SYRINGE IVP PRN (03:04)
[2017-04-23] MEDS: LEVOTHYROXINE 75 MCG TAB PO SCH (05:31)
[2017-04-23 08:01] LABS: Basophils # (A) 0.1 k/uL (0-0.2); Basophils % (A) 1 %; CH 29.7; CHCM 29.5; Eosinophils # (A) 0.4 k/uL (0-0.7); Eosinophils % (A) 7 %; HCT 33.3 % (34.0-46.0); HDW 2.58; HGB 9.7 gm/dL (11.4-16.0); Hypochromasia Marked; Luc % (Auto) 2; Lymphocytes # (A) 0.7 k/uL (1.0-4.8); Lymphocytes % (A) 13 %; MCH 29.5 pg (25.0-35.0); MCHC 29.1 g/dL (31.0-37.0); MCV 101.2 fL (80.0-100.0); Macrocytosis Slight; Mean Platelet Volume 8.2; Monocytes # (A) 0.5 k/uL (0-1.0); Monocytes % (A) 9 %; Neutrophils # (A) 3.7 k/uL (1.3-7.7); Neutrophils % (A) 69 %; RBC 3.29 m/uL (3.80-5.40); RDW 15.3 % (11.5-15.5); WBC 5.3 k/uL (3.8-10.6); WBC (Perox) 5.65
[2017-04-23] MEDS: LACTULOSE 20 GM/30 ML CUP PO SCH (08:01)
[2017-04-23] MEDS: FUROSEMIDE 40 MG TAB PO SCH (08:01)
[2017-04-23] MEDS: ASPIRIN 81 MG CHEW PO SCH (08:01)
[2017-04-23] MEDS: CARVEDILOL 6.25 MG TAB PO SCH (08:01)
[2017-04-23] MEDS: POTASSIUM CHLORIDE ER 10 MEQ TAB.ER.PRT PO SCH (08:01)
[2017-04-23] MEDS: FERROUS SULFATE 325 MG TAB PO SCH (08:01)
[2017-04-23 08:09] LABS: INR 1.5 (<1.2); Prothrombin Time 14.5 sec (9.0-12.0)
[2017-04-23 08:17] LABS: Calcium 9.5 mg/dL (8.4-10.2); Potassium 4.3 mmol/L (3.5-5.1)
[2017-04-23 08:39] VITALS: TEMP 97.2
[2017-04-23] MEDS: VANCOMYCIN 1,000 MG in SODIUM CHLORIDE 0.9% 250 ML IVPB SCH (08:51)
--- NOTE | 2017-04-23 13:10 | P.DS ---
Providers Date of admission: 04/18/17 14:54 Expected date of discharge: 04/23/17 Attending physician: Puma Alvares Consults: 04/19/17 10:17 Consult Physician Routine Consulting Provider: Cameron Kay Consult Reason/Comments: cellulitis Do you want consulting provider notified?: Yes 04/19/17 12:51 Consult Physician Routine Consulting Provider: Jaydon Erickson Consult Reason/Comments: cellulitis RLL questionable MRSA Do you want consulting provider notified?: Yes Primary care physician: [place] Hospital Course: Discharge diagnosis 1. Left lower extremity venous stasis ulcer secondary to cellulitis. Cellulitis of the left lower extremity with multiple open sores 2. Chronic venous insufficiency 3. Peripheral vascular occlusive disease 4. Underlying cognitive impairment 5. Chronic ischemic cardiomyopathy with underlying systolic heart failure and ejection fraction of 20% 6. Coronary artery disease with prior CABG and stent placement 7. Chronic atrial fibrillation on anticoagulation with Coumadin will continue to monitor INR daily Hospital course This is a 82-year-old female with past medical history noted below significant for underlying cognitive impairment and chronic peripheral vascular occlusive diseasevenous insufficiency who was admitted directly to the hospital from the wound care clinic. Patient usually follow-up closely at the wound care clinic regarding chronic ulceration involving the lower extremities both on the anterior and posterior aspect above the ankle and in the calf area. Yesterday patient was evaluated and was found to have worsening drainage and redness of the right lower extremity. Patient lives by herself in an assisted living and typically is unable to care for herself. She was admitted that included to the hospital for IV antibiotic and further evaluation. She is doing fairly well today. She is having a lot of pain. She said that her pain in the right lower extremity is 10 out of 10. On exam her left lower extremity is swollen and red. There is erythema extending from above the ankle all the way up to the knee. There is multiple open sores with serosanguineous and minimally purulent drainage noted. Left lower extremity is very tender to palpation. There is some warmth to touch as well. Left lower extremity with evidence of venous insufficiency and chronic skin changes. Patient was started on IV vancomycin. She was seen evaluated by both infectious disease and vascular surgery. She does follow with Dr. Kay in the outpatient setting. Patient's symptoms have shown improvement. Infectious disease is in agreement with discharge the recommending the doxycycline 100 mg every 12 hours for 7 days. Also will continue with the current wound care. Patient will follow-up with Dr. Kay in the office at scheduled appointment. And will follow up with Dr. Kirby in 1 week. Patient is medically stable for discharge. Also note that her INR is 1.5 at discharge she'll receive an extra dose of Coumadin 5 mg today before discharge. And will have her check a PT/INR on Sunday for further Coumadin dosing. Coumadin was increased to 4 mg daily during this admission. Patient will be discharged to [facility] for further rehabilitation. I performed an examination of the patient and discussed their management with the physician Assembler Installer General. I have reviewed the Physician Assembler Installer General's notes and agree with the documented findings and plan of care Patient Condition at Discharge: Stable Plan - Discharge Summary New Discharge Prescriptions: New Diazepam [Valium] 5 mg PO BID PRN #20 tab PRN Reason: Anxiety Warfarin [Coumadin] 4 mg PO DAILY@1800 #0 tab Doxycycline [Vibramycin] 100 mg PO Q12HR #14 capsule Continue Polyethylene Glycol 3350 [Miralax] 17 gm PO DAILY PRN PRN Reason: Constipation Levothyroxine Sodium [Synthroid] 150 mcg PO DAILY Potassium Chloride [Klor-Con 10] 10 meq PO DAILY Simvastatin [Zocor] 40 mg PO HS@2100 Ferrous Sulfate [Feosol] 325 mg PO DAILY Carvedilol [Coreg] 6.25 mg PO BID@0800,2100 Aspirin 81 mg PO DAILY Methenamine Hippurate [Hiprex] 1 gm PO DAILY Albuterol Sulfate [Proair Hfa] 2 puff INHALATION RT-Q6H PRN PRN Reason: Shortness Of Breath Furosemide [Lasix] 40 mg PO DAILY Lactulose 10 gm PO DAILY traMADol HCL [Ultram] 50 mg PO Q6H PRN #40 PRN Reason: Pain Discontinued Lisinopril [Zestril] 5 mg PO DAILY Warfarin [Coumadin] 2 mg PO HS@2100 Discharge Medication List Levothyroxine Sodium [Synthroid] 150 mcg PO DAILY 03/25/16 [History] Polyethylene Glycol 3350 [Miralax] 17 gm PO DAILY PRN 03/25/16 [History] Potassium Chloride [Klor-Con 10] 10 meq PO DAILY 07/11/16 [History] Carvedilol [Coreg] 6.25 mg PO BID@0800,2100 11/24/16 [History] Ferrous Sulfate [Feosol] 325 mg PO DAILY 11/24/16 [History] Simvastatin [Zocor] 40 mg PO HS@2100 11/24/16 [History] Aspirin 81 mg PO DAILY 03/21/17 [History] Methenamine Hippurate [Hiprex] 1 gm PO DAILY 03/21/17 [History] Albuterol Sulfate [Proair Hfa] 2 puff INHALATION RT-Q6H PRN 03/26/17 [History] Furosemide [Lasix] 40 mg PO DAILY 04/11/17 [History] Lactulose 10 gm PO DAILY 04/11/17 [History] Diazepam [Valium] 5 mg PO BID PRN #20 tab 04/23/17 [Rx] Doxycycline [Vibramycin] 100 mg PO Q12HR #14 capsule 04/23/17 [Rx] Warfarin [Coumadin] 4 mg PO DAILY@1800 #0 tab 04/23/17 [Rx] traMADol HCL [Ultram] 50 mg PO Q6H PRN #40 04/23/17 [Rx] Follow up Appointment(s)/Referral(s): [facility], [NON-STAFF] - As Needed Renny Kirby MD [Primary Care Provider] - 1 Week Cameron Kay DO [Doctor of Osteopathic Medicine] - 04/25/17 9:45 am (Follow- up in the [facility] wound healing [facility].) Activity/Diet/Wound Care/Special Instructions: Diet: cardiac Activity: as tolerated Ok to discharge patient to [facility]. Dr. Alvares to follow patient at [facility] Discharge Disposition: TRANSFER TO SNF/ECF
[2017-04-23 15:23] VITALS: BP 128/65; PULSE 86; RESP 18
--- NOTE | 2017-04-23 17:06 | PN ---
DATE OF SERVICE: 04/22/17 REASON FOR FOLLOW UP: Left lower extremity wound and cellulitis. INTERVAL HISTORY: The patient is afebrile. Overall pain to the left leg is currently controlled. The patient denies significant chest pain, shortness of breath, cough, no abdominal pain or diarrhea. On examination, blood pressure 106/51, pulse 78, temperature 98.1. She is 97% on room air. General description is an elderly female lying in the bed in no distress. Respiratory system: Unlabored breathing. Clear to auscultation anteriorly. Heart: S1, S2 regular rate and rhythm. Abdomen soft, no tenderness. Left leg is currently dressed up. No obvious drainage on the dressing. LABS: White count normal at 4.6 with a BUN 47, creatinine 1.29. DIAGNOSTIC IMPRESSION AND PLAN: Patient with left lower extremity wound, venous stasis ulcer with secondary cellulitis. The patient seems to be clinically responding to the Vancomycin along with local wound care with Aquacel silver dressing that will be continued finishing therapy with oral doxycycline along with Aquacel silver dressing. Continue support care. FABIÁN
[2017-04-23] MEDS ORDERED: WARFARIN 5 MG TAB PO ONE (18:00)
--- NOTE | 2017-04-24 06:18 | PN ---
DATE OF SERVICE: 04/23/2017 Reason for followup is left lower extremity wound and cellulitis. INTERVAL HISTORY: The patient is afebrile. She is feeling better, breathing comfortably. Denies significant chest pain, shortness of breath or cough and no pain in the left leg area. On examination, blood pressure 113/81 with a pulse of 78, temperature 97.2. She is 94% on room air. General description is an elderly female, up in the chair, in no distress. RESPIRATORY SYSTEM: Unlabored breathing. Clear to auscultation anteriorly. HEART: S1 and S2. Regular rate and rhythm. ABDOMEN: Soft, no tenderness. Left leg is currently dressed. No obvious drainage on the dressing. LABS: Hemoglobin 9.7, white count 5.3 with a BUN of 44 and creatinine is 1.15. DIAGNOSTIC IMPRESSION AND PLAN: The patient with left lower extremity cellulitis slowly clinically improving. Plan at this time is to finish therapy with p.o. Keflex and local wound care with Aquacel Silver. Continue supportive care. MTDD
== END 2017-04-23 16:17 | DRG 603 ==
LOC: 5MS5E 14:54
PROVIDERS: ADMIT Internal Medicine; ATTEND Internal Medicine
DX: L03.115 Cellulitis of right lower limb (principal); I50.22 Chronic systolic (congestive) heart failure; F03.90 Unspecified dementia, unspecified severity, without behavioral disturbance, psychotic disturbance, mood disturbance, and anxiety; I48.2 Chronic atrial fibrillation; I25.5 Ischemic cardiomyopathy; I25.10 Atherosclerotic heart disease of native coronary artery without angina pectoris; E78.5 Hyperlipidemia, unspecified; L30.9 Dermatitis, unspecified; I83.029 Varicose veins of left lower extremity with ulcer of unspecified site; I87.2 Venous insufficiency (chronic) (peripheral); Z79.01 Long term (current) use of anticoagulants; Z79.82 Long term (current) use of aspirin; Z79.899 Other long term (current) drug therapy; Z82.49 Family history of ischemic heart disease and other diseases of the circulatory system; Z86.711 Personal history of pulmonary embolism; Z86.718 Personal history of other venous thrombosis and embolism; Z88.1 Allergy status to other antibiotic agents; Z91.19 Patient's noncompliance with other medical treatment and regimen; Z95.1 Presence of aortocoronary bypass graft; Z95.5 Presence of coronary angioplasty implant and graft; Z95.810 Presence of automatic (implantable) cardiac defibrillator; Z88.2 Allergy status to sulfonamides; I70.209 Unspecified atherosclerosis of native arteries of extremities, unspecified extremity
CPT/HCPCS: 80048; 80053; 80202; 85025; 85610

== ENCOUNTER 2017-05-02 08:19 | Emergency (ER) | payer BC, MEDICARE ==
[2017-05-02 08:32] VITALS: TEMP 96.7
--- NOTE | 2017-05-02 08:35 | ED ---
Fall HPI - General Chief Complaint: Fall Stated Complaint: Fall Time Seen by Provider: 05/02/17 08:19 Source: patient, EMS, RN notes reviewed Mode of arrival: EMS - History of Present Illness Initial Comments: This is a 82-year-old female who tripped and fell going to the bathroom prior to admission she struck her head on a doorknob. She had no loss of consciousness she complains of neck pain back pain or other injury. She does have a history dementia. She was brought here for evaluation by EMS. She did have a cervical collar in place. He is on Coumadin. MD Complaint: fall - Related Data Home Medications Medication Instructions Recorded Confirmed Levothyroxine Sodium [Synthroid] 150 mcg PO DAILY@2100 03/25/16 05/02/17 Polyethylene Glycol 3350 [Miralax] 17 gm PO DAILY PRN 03/25/16 05/02/17 Potassium Chloride [Klor-Con 10] 10 meq PO DAILY 07/11/16 05/02/17 Carvedilol [Coreg] 6.25 mg PO BID@0800,2100 11/24/16 05/02/17 Ferrous Sulfate [Feosol] 325 mg PO DAILY@1200 11/24/16 05/02/17 Aspirin 81 mg PO DAILY 03/21/17 05/02/17 Methenamine Hippurate [Hiprex] 1 gm PO DAILY@1200 03/21/17 05/02/17 Albuterol Sulfate [Proair Hfa] 2 puff INHALATION RT-Q6H PRN 03/26/17 05/02/17 Furosemide [Lasix] 40 mg PO DAILY 04/11/17 05/02/17 Lactulose 10 gm PO DAILY 04/11/17 05/02/17 Atorvastatin [Lipitor] 20 mg PO HS 05/02/17 05/02/17 Diazepam [Valium] 2 mg PO HS PRN 05/02/17 05/02/17 Doxycycline Monohydrate [Monodox] 100 mg PO Q12H 05/02/17 05/02/17 Warfarin Sodium [Coumadin] 4 mg PO DAILY 05/02/17 05/02/17 Previous Rx's Medication Instructions Recorded traMADol HCL [Ultram] 50 mg PO Q6H PRN #40 04/23/17 Allergies Allergy/AdvReac Type Severity Reaction Status Date / Time ciprofloxacin [From Cipro] Allergy Unknown Verified 05/02/17 08:58 lisinopril Allergy Unknown Verified 05/02/17 08:58 Sulfa (Sulfonamide Allergy Unknown Verified 05/02/17 08:58 Antibiotics) Review of Systems ROS Statement: Those systems with pertinent positive or pertinent negative responses have been documented in the HPI. ROS Other: All systems not noted in ROS Statement are negative. Past Medical History Past Medical History: Atrial Fibrillation, Coronary Artery Disease (CAD), Cancer , Chest Pain / Angina, Heart Failure, Dementia, Deep Vein Thrombosis (DVT), Hyperlipidemia, Memory Impairment, Pulmonary Embolus (PE), Syncope, Thyroid Disorder Additional Past Medical History / Comment(s): Questionable TIA , SEVERAL UTI'S (ECOLI) MEMORY GETTING WORSE PER DAUGHTER HAS DEMENTIA. 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 Degenerative disc disease, INCONT OF BOTH URINE AND STOOL-WEARS DEPENDS. History of Any Multi-Drug Resistant Organisms: ESBL, MRSA Date of last positivie culture/infection: 11/25/16 ESBL E.coli/ 2012 ? WHEN AT [facility](PER DAUGHTER) MDRO Source:: Urine/ LEGS Past Surgical History: AICD, Bladder Surgery, Breast Surgery, Coronary Bypass/ CABG, Heart Catheterization, Pacemaker Additional Past Surgical History / Comment(s): LEFT BREAST MASTECTOMY AT [facility]- NO CHEMO OR RADIATION, CABG AT [facility], PREVIOUSLY CHARTED PACEMAKER /AICD, left knee surgery. Past Anesthesia/Blood Transfusion Reactions: No Reported Reaction Type of Cardiac Device: Permanent Pacemaker, AICD Device Placement Date:: APPROX 5-6 YRS AGO Past Psychological History: Unable to Obtain Smoking Status: Never smoker - Past Family History Father Family Medical History: No Reported History Additional Family Medical History / Comment(s): ALCOHOLIC Mother Family Medical History: Congestive Heart Failure (CHF), CVA/TIA, Dementia General Exam - General Exam Comments Initial Comments: This is a well-developed well-nourished awake alert oriented 3 female she has a [place] Coma Scale of 14 which is her norm Limitations: altered mental status General appearance: alert, in no apparent distress Head exam: Present: normocephalic, other (There is a palpable hematoma to the right occipital parietal scalp no step-off or crepitation.5 cm approximately diameter.) Eye exam: Present: normal appearance, PERRL, EOMI. Absent: scleral icterus, conjunctival injection, periorbital swelling ENT exam: Present: normal exam, mucous membranes moist Neck exam: Present: normal inspection. Absent: tenderness, meningismus, lymphadenopathy Respiratory exam: Present: normal lung sounds bilaterally. Absent: respiratory distress, wheezes, rales, rhonchi, stridor Cardiovascular Exam: Present: irregular rhythm. Absent: systolic murmur, diastolic murmur, rubs, gallop, clicks GI/Abdominal exam: Present: soft, normal bowel sounds. Absent: distended, tenderness, guarding, rebound, rigid Extremities exam: Present: full ROM, normal capillary refill, pedal edema ( Chronic stasis changes both lower extremities with wound dressing over the left lower extremity.). Absent: tenderness, joint swelling, calf tenderness Back exam: Present: normal inspection Neurological exam: Present: alert, oriented X3, CN II-XII intact Psychiatric exam: Present: normal affect, normal mood Skin exam: Present: warm, dry, intact, normal color. Absent: rash Course Vital Signs 05/02/17 05/02/17 05/02/17 08:23 09:25 10:00 Temperature 96.7 F L Pulse Rate 73 70 67 Respiratory 18 20 20 Rate Blood Pressure 100/60 133/73 134/67 O2 Sat by Pulse 100 99 100 Oximetry - Reevaluation(s) Reevaluation #1: 05/02/17 09:44 CAT scan of the brain and C-spine show no evidence of internal injury there is a hematoma noted on the scalp. I did remove the cervical collar. Medical Decision Making - Medical Decision Making Due to the patient's trauma and the elevated INR patient will require admission and observation. [facility] transfer patient will be transferred. - Lab Data Result diagrams: 05/02/17 08:35 05/02/17 08:35 Lab Results 05/02/17 05/02/17 05/02/17 Range/Units 08:35 08:35 08:35 WBC 6.2 (3.8-10.6) k/uL RBC 3.45 L (3.80-5.40) m/uL Hgb 10.0 L (11.4-16.0) gm/dL Hct 33.7 L (34.0-46.0) % MCV 97.8 (80.0-100.0) fL MCH 29.1 (25.0-35.0) pg MCHC 29.7 L (31.0-37.0) g/dL RDW 15.4 (11.5-15.5) % Plt Count 160 (150-450) k/uL Neutrophils % 79 % Lymphocytes % 8 % Monocytes % 9 % Eosinophils % 2 % Basophils % 1 % Neutrophils # 4.9 (1.3-7.7) k/uL Lymphocytes # 0.5 L (1.0-4.8) k/uL Monocytes # 0.5 (0-1.0) k/uL Eosinophils # 0.1 (0-0.7) k/uL Basophils # 0.1 (0-0.2) k/uL Hypochromasia Moderate PT 39.2 H (9.0-12.0) sec INR 4.0 H (<1.2) Sodium 140 (137-145) mmol/L Potassium 4.1 (3.5-5.1) mmol/L Chloride 106 (98-107) mmol/L Carbon Dioxide 21 L (22-30) mmol/L Anion Gap 13 mmol/L BUN 38 H (7-17) mg/dL Creatinine 1.29 H (0.52-1.04) mg/dL Est GFR (MDRD) Af Amer 48 (>60 ml/min/1.73 sqM) Est GFR (MDRD) Non-Af 40 (>60 ml/min/1.73 sqM) Glucose 98 (74-99) mg/dL Calcium 9.5 (8.4-10.2) mg/dL Total Bilirubin 1.6 H (0.2-1.3) mg/dL AST 30 (14-36) U/L ALT 30 (9-52) U/L Alkaline Phosphatase 110 (38-126) U/L Total Protein 6.6 (6.3-8.2) g/dL Albumin 3.4 L (3.5-5.0) g/dL - EKG Data -: EKG Interpreted by Me (Patient's rhythm of 76 QRS 124 daily since QTC of 460/ 517 PVCs are present) - Radiology Data Radiology results: report reviewed (I did review the imaging and reports. No evidence of intracranial bleed. There is a large hematoma.), image reviewed Disposition Clinical Impression: Scalp contusion, Coumadin toxicity, Fall Disposition: OTHER INSTITUTION NOT DEFINED Condition: Stable Referrals: Gui Swanson MD [STAFF PHYSICIAN] - 1-2 days Decision Time: 10:00 - Out of Hospital Transfer - Req. Specs Out of Hospital Transfer - Requested Specifics: Other Emergency Center
[2017-05-02 08:53] LABS: Basophils # (A) 0.1 k/uL (0-0.2); Basophils % (A) 1 %; CH 29.6; CHCM 30.4; Eosinophils # (A) 0.1 k/uL (0-0.7); Eosinophils % (A) 2 %; HCT 33.7 % (34.0-46.0); HDW 2.68; Hypochromasia Moderate; Luc # (Auto) 0.14; Luc % (Auto) 2; Lymphocytes # (A) 0.5 k/uL (1.0-4.8); Lymphocytes % (A) 8 %; MCH 29.1 pg (25.0-35.0); MCHC 29.7 g/dL (31.0-37.0); MCV 97.8 fL (80.0-100.0); Mean Platelet Volume 9.2; Monocytes # (A) 0.5 k/uL (0-1.0); Monocytes % (A) 9 %; Neutrophils # (A) 4.9 k/uL (1.3-7.7); Neutrophils % (A) 79 %; RBC 3.45 m/uL (3.80-5.40); RDW 15.4 % (11.5-15.5); WBC 6.2 k/uL (3.8-10.6); WBC (Perox) 6.16
[2017-05-02 09:00] LABS: Calcium 9.5 mg/dL (8.4-10.2); Potassium 4.1 mmol/L (3.5-5.1); Total Bilirubin 1.6 mg/dL (0.2-1.3); Total Protein 6.6 g/dL (6.3-8.2)
[2017-05-02 09:08] LABS: Prothrombin Time 39.2 sec (9.0-12.0)
--- NOTE | 2017-05-02 09:14 | CT ---
EXAMINATION TYPE: CT brain negro zuleta DATE OF EXAM: 05/02/2017 COMPARISON: April 02 HISTORY: Fall, hit back of head CT DLP: brain 1142.57, Cervical 286.[address] of the brain was performed. The ventricles, basal cisterns and sulci overlying the cerebral convexities demonstrate [id number] ate enlargement. There is no evidence for intracranial hemorrhage or sulcal effacement. There is decreased attenuatio n about the periventricular white matter and deep white matter of both cerebral hemispheres, compatib le with chronic small vessel ischemia. No mass effects are seen. If symptoms persist consider MRI. Osseous calvarium is intact. Posterior right parietal scalp hematoma noted IMPRESSION: 1. Age related atrophic and chronic small vessel ischemic change without acute intracranial process seen at this time. CT Cervical Spine: Unenhanced CT of the cervical spine was performed with bone and soft tissue window settings submitted . Coronal and sagittal reconstruction is obtained. There is normal alignment and prevertebral soft tissues. No evidence for acute cervical fracture . S coliosis convex to the left. Scattered degenerative disc disease and spondylosis. Biapical scarring. Large right-sided pleural effusion. IMPRESSION: 1. No evidence for acute fracture or subluxation of the cervical spine.
[2017-05-02 10:40] VITALS: PULSE 67
[2017-05-02 11:17] VITALS: BP 135/64; RESP 18
== END 2017-05-02 12:30 | disposition other institution (70) ==
LOC: EC 08:19
DX: S00.03XA Contusion of scalp, initial encounter (principal); T45.511A Poisoning by anticoagulants, accidental (unintentional), initial encounter; I48.91 Unspecified atrial fibrillation; I25.10 Atherosclerotic heart disease of native coronary artery without angina pectoris; I50.9 Heart failure, unspecified; Z85.3 Personal history of malignant neoplasm of breast; E78.5 Hyperlipidemia, unspecified; Z86.718 Personal history of other venous thrombosis and embolism; E07.9 Disorder of thyroid, unspecified; Z86.711 Personal history of pulmonary embolism; Z79.82 Long term (current) use of aspirin; Z79.899 Other long term (current) drug therapy; Z79.01 Long term (current) use of anticoagulants; Z88.1 Allergy status to other antibiotic agents; Z88.2 Allergy status to sulfonamides; Z88.8 Allergy status to other drugs, medicaments and biological substances; W18.09XA Striking against other object with subsequent fall, initial encounter; Y92.009 Unspecified place in unspecified non-institutional (private) residence as the place of occurrence of the external cause
CPT/HCPCS: 36415; 70450; 72125; 80053; 85025; 85610; 93005; 99285